=== PATIENT | male | born 1935 | race Caucasian/White ===

== ENCOUNTER 2018-03-29 14:48 | Observation (INO) | payer MEDICARE ==
[~2018-03-29] VITALS: Ht 180.3 cm; Wt 77.5 kg
[~2018-03-29 14:48] MED LIST: Aspirin EC81 MG PO; CLIN300 PO; Carbidopa-Levo1 EAC4 PO; LORA.5 PO; PRAM.5; PROACE100 PO; TAMS.4ER PO; TRAZ50 PO; [UNRECOGNIZED DRUG - OTHER]
[2018-03-29 15:27] LABS: BASOPHILS ABSOLUTE AUTO 0.07 K/mm3 (0.00-0.23); BASOPHILS PERCENT AUTO 1 % (0-2); EOSINOPHILS ABSOLUTE AUTO 0.21 K/mm3 (0.00-0.68); EOSINOPHILS PERCENT AUTO 4 % (0-6); Hematocrit 43.2 % (37.0-53.0); Hemoglobin 14.5 g/dL (13.5-17.5); IMMATURE GRAN ABSOLUTE AUTO 0.01 K/mm3 (0.00-0.10); IMMATURE GRAN PERCENT AUTO 0 % (0-1); LYMPHOCYTES PERCENT AUTO 21 % (21-46); MONOCYTES ABSOLUTE AUTO 0.46 K/mm3 (0.16-1.47); MONOCYTES PERCENT AUTO 8 % (4-13); Mean Corpuscular HGB 31.9 pg (26.0-34.0); Mean Corpuscular HGB Conc 33.6 g/dL (31.5-36.5); Mean Corpuscular Volume 95 fL (80-100); Mean Platelet Volume 9.5 fL (9.1-12.4); NEUTROPHILS ABSOLUTE AUTO 3.76 K/mm3 (1.96-9.15); NEUTROPHILS PERCENT AUTO 66 % (41-73); Platelet Count 182 K/mm3 (150-400); RDW Coefficient Variation 12.7 % (11.7-14.2); RDW Standard Deviation 44.3 fL (35.1-46.3); Red Blood Cell Count 4.54 M/mm3 (4.30-5.90); White Blood Cell Count 5.71 K/mm3 (4.00-11.30)
[2018-03-29 15:42] LABS: Alanine Aminotransfer (ALT/SGP 9 U/L (12-78); Albumin, Blood 3.5 g/dL (3.4-5.0); Albumin/Globulin Ratio 0.9 (0.8-1.8); Alk Phos 52 U/L (50-136); Anion Gap 6 mmol/L (6-16); Aspartate Aminotrans (AST/SGOT 18 U/L (12-37); Bilirubin, Total 0.6 mg/dL (0.1-1.0); Blood Urea Nitrogen 18 mg/dL (8-24); Bun/Creatinine Ratio 23.8 (12.0-20.0); CO2, Blood 25 mmol/L (21-32); Chloride, Blood 109 mmol/L (98-108); Creatinine, Blood 0.76 mg/dL (0.60-1.20); Globulin, Blood 3.7 g/dL (2.2-4.0); Glomerular Filtration Rate >60 (60-); Glucose, Blood 91 mg/dL (70-99); Potassium, Blood 4.3 mmol/L (3.5-5.5); Sodium, Blood 140 mmol/L (136-145); Total Protein, Blood 7.2 g/dL (6.4-8.2); Troponin I <0.015 ng/mL (0.000-0.040)
[2018-03-29 20:50] LABS: Source, Urine Clean Catch
[2018-03-29 20:53] LABS: Bilirubin, Urine Neg (Neg); Blood, Urine Neg (Neg); Glucose Qualitative, Urine Neg (Neg); Ketones, Urine Neg (Neg); Leukocyte Esterase, Urine Neg (Neg); Nitrite, Urine Neg (Neg); Protein, Urine Neg (Neg); Specific Gravity, Urine 1.015 (1.003-1.022); Urobilinogen, Urine NORM (Normal); pH, Urine 6.5 (5.0-8.0)
[2018-03-29 20:55] LABS: Color, Urine Yellow (P-Yellow)
[2018-03-29 20:56] LABS: Appearance, Urine Clear (Clear)
[2018-03-29] MEDS ORDERED: CARB100 (22:33)
[2018-03-29] MEDS ORDERED: Carbidopa-Levo1 EAC1 PO (22:34)
[2018-03-30 08:01] LABS: CHOL/HDL RATIO 2.3; Cholesterol 112 mg/dL (50-200); HDL Cholesterol 49 mg/dL (>39); Low Density Lipoprotein Chol 51 mg/dL (0-110); Triglycerides 61 mg/dL (30-160); Troponin I <0.015 ng/mL (0.000-0.040); Very Low Density Lipoprot Chol 12 mg/dL (6-32)
[2018-03-30] MEDS ORDERED: Vitamin B Comple1 EA PO (16:03)
[2018-03-30] MEDS ORDERED: CYAN100T2 PO (16:04)
[2018-03-30] MEDS ORDERED: VITAMIN C500 M1 PO (16:04)
[2018-03-30] MEDS ORDERED: ACET325 PO (16:05)
[2018-03-30] MEDS ORDERED: CHOL10002 PO (16:05)
[2018-03-30] MEDS ORDERED: BISA10S PR (16:05)
[2018-03-30] MEDS ORDERED: LOPE2C PO (16:06)
[2018-03-30] MEDS ORDERED: Milk Of Ma400 MG/5 M PO (16:06)
== END 2018-03-31 17:50 | disposition home or self-care (01) ==
LOC: ER 14:48 → PCU 14:49 → MEDS 03-30 13:28
PROVIDERS: Family Medicine; Hospitalist; Internal Medicine
DX: I20.0 Unstable angina (principal); R41.0 Disorientation, unspecified; G20 Parkinson's disease; N40.0 Benign prostatic hyperplasia without lower urinary tract symptoms; Z79.899 Other long term (current) drug therapy; Z79.82 Long term (current) use of aspirin; Z82.49 Family history of ischemic heart disease and other diseases of the circulatory system
CPT/HCPCS: 36415; 71046; 78452; 80053; 80061; 81003; 83880; 84484; 85025; 85379; 87493; 92610; 93005; 93010; 93017; 93306; 94762; 97161; 97530; 99285; A9500; G0378; G8978; G8979; G8980; G8996; G8997; G8998; J0280; J2785

== ENCOUNTER 2018-07-11 09:47 | Emergency (ER) | payer MEDICARE, OTHER ==
[~2018-07-11] VITALS: Ht 177.8 cm; Wt 79.4 kg
[~2018-07-11 09:47] MED LIST changes: +ACET325 PO; +BISA10S PR; +CARB100; +CHOL10002 PO; +CYAN100T2 PO; +Carbidopa-Levo1 EAC1 PO; +LOPE2C PO; +Milk Of Ma400 MG/5 M PO; +VITAMIN C500 M1 PO; +Vitamin B Comple1 EA PO
[2018-07-11 11:52] LABS: Source, Urine Clean Catch
[2018-07-11 12:04] LABS: Appearance, Urine Cloudy (Clear); Bilirubin, Urine Neg (Neg); Blood, Urine 2+ (Neg); Color, Urine Amber (P-Yellow); Glucose Qualitative, Urine Neg (Neg); Ketones, Urine 2+ (Neg); Leukocyte Esterase, Urine 3+ (Neg); Nitrite, Urine Pos (Neg); Protein, Urine 2+ (Neg); Urobilinogen, Urine 1+ (Normal)
[2018-07-11 12:24] LABS: White Blood Cells, Urine TNTC /hpf (0-5)
[2018-07-11 12:28] LABS: Bacteria Many /hpf; Squamous Epithelial Cells Rare /hpf (Few)
[2018-07-11] MEDS ORDERED: Bactrim Ds Tab1 EACH PO (12:57)
[2018-07-11] MEDS ORDERED: Norco 5-325 Ta1 EACH PO (12:57)
[2018-07-12] MEDS ORDERED: GAVILAX17 GM PO (19:00)
== END 2018-07-11 14:08 | disposition home or self-care (01) ==
LOC: ER 09:47
PROVIDERS: Emergency Medicine
DX: S32.512A Fracture of superior rim of left pubis, initial encounter for closed fracture (principal); S32.592A Other specified fracture of left pubis, initial encounter for closed fracture; S00.01XA Abrasion of scalp, initial encounter; N39.0 Urinary tract infection, site not specified; G20 Parkinson's disease; W18.30XA Fall on same level, unspecified, initial encounter; Z79.82 Long term (current) use of aspirin; Z79.899 Other long term (current) drug therapy
CPT/HCPCS: 70450; 73502; 81001; 87077; 87086; 87186; 99284-25

== ENCOUNTER 2018-07-12 17:45 | Inpatient (IN) | payer OTHER ==
[~2018-07-12] VITALS: Ht 182.9 cm; Wt 74.9 kg
[~2018-07-12 17:45] MED LIST changes: +Bactrim Ds Tab1 EACH PO; +Norco 5-325 Ta1 EACH PO
[2018-07-12] MEDS ORDERED: GAVILAX17 GM PO (19:00)
[2018-07-12 19:03] LABS: BASOPHILS ABSOLUTE AUTO 0.04 K/mm3 (0.00-0.23); BASOPHILS PERCENT AUTO 1 % (0-2); EOSINOPHILS ABSOLUTE AUTO 0.15 K/mm3 (0.00-0.68); EOSINOPHILS PERCENT AUTO 2 % (0-6); Hematocrit 40.5 % (37.0-53.0); Hemoglobin 13.7 g/dL (13.5-17.5); IMMATURE GRAN ABSOLUTE AUTO 0.03 K/mm3 (0.00-0.10); IMMATURE GRAN PERCENT AUTO 0 % (0-1); LYMPHOCYTES ABSOLUTE AUTO 0.81 K/mm3 (0.84-5.20); LYMPHOCYTES PERCENT AUTO 9 % (21-46); MONOCYTES ABSOLUTE AUTO 0.63 K/mm3 (0.16-1.47); MONOCYTES PERCENT AUTO 7 % (4-13); Mean Corpuscular HGB Conc 33.8 g/dL (31.5-36.5); Mean Corpuscular Volume 95 fL (80-100); Mean Platelet Volume 9.6 fL (9.1-12.4); NEUTROPHILS ABSOLUTE AUTO 6.96 K/mm3 (1.96-9.15); NEUTROPHILS PERCENT AUTO 81 % (41-73); Platelet Count 174 K/mm3 (150-400); RDW Coefficient Variation 13.2 % (11.7-14.2); RDW Standard Deviation 45.8 fL (35.1-46.3); Red Blood Cell Count 4.28 M/mm3 (4.30-5.90); White Blood Cell Count 8.62 K/mm3 (4.00-11.30)
[2018-07-12 19:28] LABS: Alanine Aminotransfer (ALT/SGP 7 U/L (12-78); Albumin, Blood 3.2 g/dL (3.4-5.0); Albumin/Globulin Ratio 0.8 (0.8-1.8); Alk Phos 49 U/L (50-136); Anion Gap 9 mmol/L (6-16); Aspartate Aminotrans (AST/SGOT 16 U/L (12-37); Bilirubin, Total 0.9 mg/dL (0.1-1.0); Blood Urea Nitrogen 14 mg/dL (8-24); Bun/Creatinine Ratio 14.7 (12.0-20.0); CO2, Blood 25 mmol/L (21-32); Calcium, Blood 9.1 mg/dL (8.5-10.1); Chloride, Blood 105 mmol/L (98-108); Creatinine, Blood 0.96 mg/dL (0.60-1.20); Globulin, Blood 3.9 g/dL (2.2-4.0); Glomerular Filtration Rate >60 (60-); Glucose, Blood 106 mg/dL (70-99); Sodium, Blood 139 mmol/L (136-145); Total Protein, Blood 7.1 g/dL (6.4-8.2)
[2018-07-13 04:16] LABS: BASOPHILS ABSOLUTE AUTO 0.03 K/mm3 (0.00-0.23); BASOPHILS PERCENT AUTO 0 % (0-2); EOSINOPHILS ABSOLUTE AUTO 0.13 K/mm3 (0.00-0.68); EOSINOPHILS PERCENT AUTO 2 % (0-6); Hematocrit 39.5 % (37.0-53.0); Hemoglobin 13.5 g/dL (13.5-17.5); IMMATURE GRAN ABSOLUTE AUTO 0.02 K/mm3 (0.00-0.10); IMMATURE GRAN PERCENT AUTO 0 % (0-1); LYMPHOCYTES ABSOLUTE AUTO 0.76 K/mm3 (0.84-5.20); LYMPHOCYTES PERCENT AUTO 10 % (21-46); MONOCYTES PERCENT AUTO 8 % (4-13); Mean Corpuscular HGB 32.1 pg (26.0-34.0); Mean Corpuscular HGB Conc 34.2 g/dL (31.5-36.5); Mean Corpuscular Volume 94 fL (80-100); Mean Platelet Volume 9.6 fL (9.1-12.4); NEUTROPHILS ABSOLUTE AUTO 6.17 K/mm3 (1.96-9.15); NEUTROPHILS PERCENT AUTO 80 % (41-73); Platelet Count 169 K/mm3 (150-400); RDW Coefficient Variation 13.2 % (11.7-14.2); RDW Standard Deviation 45.3 fL (35.1-46.3); White Blood Cell Count 7.71 K/mm3 (4.00-11.30)
[2018-07-13 04:35] LABS: Anion Gap 8 mmol/L (6-16); Blood Urea Nitrogen 15 mg/dL (8-24); Bun/Creatinine Ratio 14.2 (12.0-20.0); CO2, Blood 25 mmol/L (21-32); Calcium, Blood 8.7 mg/dL (8.5-10.1); Chloride, Blood 108 mmol/L (98-108); Creatinine, Blood 1.06 mg/dL (0.60-1.20); Glomerular Filtration Rate >60 (60-); Glucose, Blood 83 mg/dL (70-99); Potassium, Blood 4.3 mmol/L (3.5-5.5); Sodium, Blood 141 mmol/L (136-145)
[2018-07-18 06:05] LABS: BASOPHILS ABSOLUTE AUTO 0.06 K/mm3 (0.00-0.23); BASOPHILS PERCENT AUTO 1 % (0-2); EOSINOPHILS ABSOLUTE AUTO 0.45 K/mm3 (0.00-0.68); EOSINOPHILS PERCENT AUTO 8 % (0-6); Hematocrit 41.2 % (37.0-53.0); Hemoglobin 13.6 g/dL (13.5-17.5); IMMATURE GRAN ABSOLUTE AUTO 0.03 K/mm3 (0.00-0.10); IMMATURE GRAN PERCENT AUTO 1 % (0-1); LYMPHOCYTES ABSOLUTE AUTO 1.11 K/mm3 (0.84-5.20); LYMPHOCYTES PERCENT AUTO 19 % (21-46); MONOCYTES ABSOLUTE AUTO 0.43 K/mm3 (0.16-1.47); MONOCYTES PERCENT AUTO 7 % (4-13); Mean Corpuscular HGB 30.8 pg (26.0-34.0); Mean Corpuscular Volume 93 fL (80-100); Mean Platelet Volume 9.3 fL (9.1-12.4); NEUTROPHILS ABSOLUTE AUTO 3.88 K/mm3 (1.96-9.15); NEUTROPHILS PERCENT AUTO 65 % (41-73); Platelet Count 181 K/mm3 (150-400); RDW Coefficient Variation 13.1 % (11.7-14.2); RDW Standard Deviation 44.6 fL (35.1-46.3); Red Blood Cell Count 4.42 M/mm3 (4.30-5.90); White Blood Cell Count 5.96 K/mm3 (4.00-11.30)
[2018-07-18 06:26] LABS: Anion Gap 8 mmol/L (6-16); Blood Urea Nitrogen 22 mg/dL (8-24); Bun/Creatinine Ratio 26.5 (12.0-20.0); CO2, Blood 25 mmol/L (21-32); Calcium, Blood 8.7 mg/dL (8.5-10.1); Chloride, Blood 110 mmol/L (98-108); Creatinine, Blood 0.83 mg/dL (0.60-1.20); Glomerular Filtration Rate >60 (60-); Glucose, Blood 83 mg/dL (70-99); Potassium, Blood 3.9 mmol/L (3.5-5.5); Sodium, Blood 143 mmol/L (136-145)
[2018-07-18] MEDS ORDERED: PANT40 PO (14:22)
[2018-07-18] MEDS ORDERED: ONDA4ODT MM (14:23)
[2018-07-18] MEDS ORDERED: Augmentin 500-1 EACH PO (14:24)
[2018-07-18] MEDS ORDERED: GUAI600T33 PO (14:25)
== END 2018-07-18 16:46 | DRG 689 ==
LOC: ER 17:45 → MEDS 20:45
PROVIDERS: Emergency Medicine; Family Medicine; Nurse Practitioner Acute Care
DX: N39.0 Urinary tract infection, site not specified (principal); G92 Toxic encephalopathy; B96.20 Unspecified Escherichia coli [E. coli] as the cause of diseases classified elsewhere; S32.592A Other specified fracture of left pubis, initial encounter for closed fracture; N40.0 Benign prostatic hyperplasia without lower urinary tract symptoms; G20 Parkinson's disease; W19.XXXA Unspecified fall, initial encounter; R91.8 Other nonspecific abnormal finding of lung field; Z79.899 Other long term (current) drug therapy; Z79.82 Long term (current) use of aspirin
CPT/HCPCS: 36415; 70450; 71046; 73502; 80048; 80053; 81001; 85025; 87077; 87086; 87186; 92610; 97110; 97116; 97161; 97166; 97530; 97535; 99284-25; 99285; G8978; G8979; G8980; G8987; G8988; G8996; G8997; G8998; J0696; J1650; J1885; J7030

== ENCOUNTER → 2018-09-05 | Outpatient (CLI) | payer OTHER ==
[~2018-09-05] MED LIST changes: +Augmentin 500-1 EACH PO; +GAVILAX17 GM PO; +GUAI600T33 PO; +ONDA4ODT MM; +PANT40 PO
[2018-09-05 15:16] LABS: Appearance, Urine Clear (Clear); Bilirubin, Urine Neg (Neg); Blood, Urine Neg (Neg); Color, Urine Yellow (P-Yellow); Glucose Qualitative, Urine Neg (Neg); Ketones, Urine 1+ (Neg); Leukocyte Esterase, Urine Neg (Neg); Nitrite, Urine Neg (Neg); Protein, Urine Neg (Neg); Specific Gravity, Urine 1.015 (1.003-1.022); Urobilinogen, Urine NORM (Normal)
== END | disposition home or self-care (01) ==
LOC: LAB 14:47 → LAB SHORT 14:47
DX: N39.0 Urinary tract infection, site not specified (principal)
CPT/HCPCS: 81003

== ENCOUNTER 2018-10-16 09:35 | Inpatient (IN) | payer OTHER ==
[~2018-10-16] VITALS: Ht 177.8 cm; Wt 81.6 kg
[~2018-10-16 09:35] MED LIST changes: -CARBIDOPA-LEVO1 EAC2 PO; -CIPR250 PO; -ESCI10 PO; -HYDR1TAB94 PO; -PANT20 PO
[2018-10-16 15:45] LABS: BASOPHILS ABSOLUTE AUTO 0.05 K/mm3 (0.00-0.23); BASOPHILS PERCENT AUTO 1 % (0-2); EOSINOPHILS ABSOLUTE AUTO 0.02 K/mm3 (0.00-0.68); EOSINOPHILS PERCENT AUTO 0 % (0-6); Hematocrit 41.6 % (37.0-53.0); Hemoglobin 13.9 g/dL (13.5-17.5); IMMATURE GRAN ABSOLUTE AUTO 0.02 K/mm3 (0.00-0.10); IMMATURE GRAN PERCENT AUTO 0 % (0-1); LYMPHOCYTES ABSOLUTE AUTO 0.58 K/mm3 (0.84-5.20); LYMPHOCYTES PERCENT AUTO 8 % (21-46); MONOCYTES ABSOLUTE AUTO 0.38 K/mm3 (0.16-1.47); MONOCYTES PERCENT AUTO 5 % (4-13); Mean Corpuscular HGB 31.7 pg (26.0-34.0); Mean Corpuscular HGB Conc 33.4 g/dL (31.5-36.5); Mean Corpuscular Volume 95 fL (80-100); Mean Platelet Volume 9.6 fL (9.1-12.4); NEUTROPHILS ABSOLUTE AUTO 5.93 K/mm3 (1.96-9.15); NEUTROPHILS PERCENT AUTO 85 % (41-73); Platelet Count 189 K/mm3 (150-400); RDW Standard Deviation 44.7 fL (35.1-46.3); Red Blood Cell Count 4.39 M/mm3 (4.30-5.90); White Blood Cell Count 6.98 K/mm3 (4.00-11.30)
[2018-10-16 15:59] LABS: Alanine Aminotransfer (ALT/SGP 10 U/L (12-78); Albumin, Blood 3.3 g/dL (3.4-5.0); Albumin/Globulin Ratio 0.9 (0.8-1.8); Alk Phos 72 U/L (50-136); Anion Gap 9 mmol/L (6-16); Aspartate Aminotrans (AST/SGOT 27 U/L (12-37); Bilirubin, Total 0.8 mg/dL (0.1-1.0); Blood Urea Nitrogen 15 mg/dL (8-24); Bun/Creatinine Ratio 20.2 (12.0-20.0); CO2, Blood 25 mmol/L (21-32); Calcium, Blood 8.8 mg/dL (8.5-10.1); Chloride, Blood 107 mmol/L (98-108); Creatinine, Blood 0.74 mg/dL (0.60-1.20); Globulin, Blood 3.5 g/dL (2.2-4.0); Glomerular Filtration Rate >60 (60-); Glucose, Blood 94 mg/dL (70-99); Sodium, Blood 141 mmol/L (136-145); Total Protein, Blood 6.8 g/dL (6.4-8.2)
[2018-10-16] MEDS ORDERED: CIPR250 PO (16:32)
[2018-10-17 05:58] LABS: BASOPHILS ABSOLUTE AUTO 0.06 K/mm3 (0.00-0.23); BASOPHILS PERCENT AUTO 1 % (0-2); EOSINOPHILS ABSOLUTE AUTO 0.17 K/mm3 (0.00-0.68); EOSINOPHILS PERCENT AUTO 3 % (0-6); Hematocrit 38.4 % (37.0-53.0); Hemoglobin 12.7 g/dL (13.5-17.5); IMMATURE GRAN ABSOLUTE AUTO 0.01 K/mm3 (0.00-0.10); IMMATURE GRAN PERCENT AUTO 0 % (0-1); LYMPHOCYTES ABSOLUTE AUTO 0.85 K/mm3 (0.84-5.20); LYMPHOCYTES PERCENT AUTO 16 % (21-46); MONOCYTES ABSOLUTE AUTO 0.53 K/mm3 (0.16-1.47); MONOCYTES PERCENT AUTO 10 % (4-13); Mean Corpuscular HGB 31.2 pg (26.0-34.0); Mean Corpuscular HGB Conc 33.1 g/dL (31.5-36.5); Mean Corpuscular Volume 94 fL (80-100); Mean Platelet Volume 9.1 fL (9.1-12.4); NEUTROPHILS ABSOLUTE AUTO 3.72 K/mm3 (1.96-9.15); NEUTROPHILS PERCENT AUTO 70 % (41-73); Platelet Count 155 K/mm3 (150-400); RDW Coefficient Variation 13.1 % (11.7-14.2); RDW Standard Deviation 45.2 fL (35.1-46.3); Red Blood Cell Count 4.07 M/mm3 (4.30-5.90); White Blood Cell Count 5.34 K/mm3 (4.00-11.30)
[2018-10-17 06:23] LABS: Alanine Aminotransfer (ALT/SGP 10 U/L (12-78); Albumin/Globulin Ratio 0.9 (0.8-1.8); Alk Phos 66 U/L (50-136); Anion Gap 8 mmol/L (6-16); Aspartate Aminotrans (AST/SGOT 20 U/L (12-37); Bilirubin, Total 1.3 mg/dL (0.1-1.0); Blood Urea Nitrogen 15 mg/dL (8-24); Bun/Creatinine Ratio 18.1 (12.0-20.0); CO2, Blood 25 mmol/L (21-32); Calcium, Blood 8.5 mg/dL (8.5-10.1); Chloride, Blood 109 mmol/L (98-108); Creatinine, Blood 0.83 mg/dL (0.60-1.20); Globulin, Blood 3.2 g/dL (2.2-4.0); Glomerular Filtration Rate >60 (60-); Glucose, Blood 81 mg/dL (70-99); Magnesium, Blood 2.2 mg/dL (1.6-2.4); Potassium, Blood 3.7 mmol/L (3.5-5.5); Sodium, Blood 142 mmol/L (136-145); Total Protein, Blood 6.2 g/dL (6.4-8.2)
[2018-10-18 05:50] LABS: BASOPHILS ABSOLUTE AUTO 0.04 K/mm3 (0.00-0.23); BASOPHILS PERCENT AUTO 0 % (0-2); EOSINOPHILS ABSOLUTE AUTO 0.01 K/mm3 (0.00-0.68); EOSINOPHILS PERCENT AUTO 0 % (0-6); Hemoglobin 12.4 g/dL (13.5-17.5); IMMATURE GRAN ABSOLUTE AUTO 0.02 K/mm3 (0.00-0.10); IMMATURE GRAN PERCENT AUTO 0 % (0-1); LYMPHOCYTES ABSOLUTE AUTO 0.51 K/mm3 (0.84-5.20); LYMPHOCYTES PERCENT AUTO 5 % (21-46); MONOCYTES ABSOLUTE AUTO 0.54 K/mm3 (0.16-1.47); MONOCYTES PERCENT AUTO 5 % (4-13); Mean Corpuscular HGB 31.6 pg (26.0-34.0); Mean Corpuscular HGB Conc 33.5 g/dL (31.5-36.5); Mean Corpuscular Volume 94 fL (80-100); Mean Platelet Volume 9.7 fL (9.1-12.4); NEUTROPHILS ABSOLUTE AUTO 8.84 K/mm3 (1.96-9.15); NEUTROPHILS PERCENT AUTO 89 % (41-73); Platelet Count 154 K/mm3 (150-400); RDW Standard Deviation 44.7 fL (35.1-46.3); Red Blood Cell Count 3.92 M/mm3 (4.30-5.90); White Blood Cell Count 9.96 K/mm3 (4.00-11.30)
[2018-10-18 06:21] LABS: Alanine Aminotransfer (ALT/SGP <6 U/L (12-78); Albumin, Blood 2.5 g/dL (3.4-5.0); Albumin/Globulin Ratio 0.9 (0.8-1.8); Alk Phos 57 U/L (50-136); Anion Gap 7 mmol/L (6-16); Aspartate Aminotrans (AST/SGOT 22 U/L (12-37); Blood Urea Nitrogen 13 mg/dL (8-24); Bun/Creatinine Ratio 16.6 (12.0-20.0); CO2, Blood 26 mmol/L (21-32); Calcium, Blood 8.1 mg/dL (8.5-10.1); Chloride, Blood 107 mmol/L (98-108); Creatinine, Blood 0.78 mg/dL (0.60-1.20); Globulin, Blood 2.9 g/dL (2.2-4.0); Glomerular Filtration Rate >60 (60-); Glucose, Blood 92 mg/dL (70-99); Potassium, Blood 3.9 mmol/L (3.5-5.5); Sodium, Blood 140 mmol/L (136-145); Total Protein, Blood 5.4 g/dL (6.4-8.2)
[2018-10-18] MEDS ORDERED: CARBIDOPA-LEVO1 EAC2 PO (18:03)
[2018-10-19 05:59] LABS: BASOPHILS ABSOLUTE AUTO 0.04 K/mm3 (0.00-0.23); BASOPHILS PERCENT AUTO 1 % (0-2); EOSINOPHILS ABSOLUTE AUTO 0.16 K/mm3 (0.00-0.68); EOSINOPHILS PERCENT AUTO 2 % (0-6); Hematocrit 37.4 % (37.0-53.0); Hemoglobin 12.2 g/dL (13.5-17.5); IMMATURE GRAN ABSOLUTE AUTO 0.01 K/mm3 (0.00-0.10); IMMATURE GRAN PERCENT AUTO 0 % (0-1); LYMPHOCYTES ABSOLUTE AUTO 0.62 K/mm3 (0.84-5.20); LYMPHOCYTES PERCENT AUTO 9 % (21-46); MONOCYTES ABSOLUTE AUTO 0.56 K/mm3 (0.16-1.47); MONOCYTES PERCENT AUTO 8 % (4-13); Mean Corpuscular HGB 31.2 pg (26.0-34.0); Mean Corpuscular HGB Conc 32.6 g/dL (31.5-36.5); Mean Corpuscular Volume 96 fL (80-100); Mean Platelet Volume 9.9 fL (9.1-12.4); NEUTROPHILS ABSOLUTE AUTO 5.46 K/mm3 (1.96-9.15); NEUTROPHILS PERCENT AUTO 80 % (41-73); Platelet Count 145 K/mm3 (150-400); RDW Coefficient Variation 13.1 % (11.7-14.2); RDW Standard Deviation 46.3 fL (35.1-46.3); Red Blood Cell Count 3.91 M/mm3 (4.30-5.90); White Blood Cell Count 6.85 K/mm3 (4.00-11.30)
[2018-10-19 06:16] LABS: Alanine Aminotransfer (ALT/SGP 9 U/L (12-78); Albumin, Blood 2.3 g/dL (3.4-5.0); Albumin/Globulin Ratio 0.7 (0.8-1.8); Alk Phos 54 U/L (50-136); Anion Gap 8 mmol/L (6-16); Aspartate Aminotrans (AST/SGOT 24 U/L (12-37); Bilirubin, Total 0.9 mg/dL (0.1-1.0); Blood Urea Nitrogen 12 mg/dL (8-24); Bun/Creatinine Ratio 14.9 (12.0-20.0); CO2, Blood 26 mmol/L (21-32); Calcium, Blood 8.2 mg/dL (8.5-10.1); Chloride, Blood 109 mmol/L (98-108); Creatinine, Blood 0.81 mg/dL (0.60-1.20); Globulin, Blood 3.1 g/dL (2.2-4.0); Glomerular Filtration Rate >60 (60-); Glucose, Blood 67 mg/dL (70-99); Potassium, Blood 3.4 mmol/L (3.5-5.5); Sodium, Blood 143 mmol/L (136-145); Total Protein, Blood 5.4 g/dL (6.4-8.2)
[2018-10-20 04:34] LABS: Anion Gap 7 mmol/L (6-16); Blood Urea Nitrogen 10 mg/dL (8-24); Bun/Creatinine Ratio 14.7 (12.0-20.0); CO2, Blood 28 mmol/L (21-32); Calcium, Blood 8.2 mg/dL (8.5-10.1); Chloride, Blood 108 mmol/L (98-108); Creatinine, Blood 0.68 mg/dL (0.60-1.20); Glomerular Filtration Rate >60 (60-); Glucose, Blood 107 mg/dL (70-99); Potassium, Blood 3.4 mmol/L (3.5-5.5); Sodium, Blood 143 mmol/L (136-145)
[2018-10-22 07:18] LABS: Hematocrit 39.9 % (37.0-53.0); Hemoglobin 13.3 g/dL (13.5-17.5); Mean Corpuscular HGB 31.1 pg (26.0-34.0); Mean Corpuscular HGB Conc 33.3 g/dL (31.5-36.5); Mean Platelet Volume 9.7 fL (9.1-12.4); Platelet Count 194 K/mm3 (150-400); RDW Coefficient Variation 12.4 % (11.7-14.2); RDW Standard Deviation 42.3 fL (35.1-46.3); Red Blood Cell Count 4.27 M/mm3 (4.30-5.90); White Blood Cell Count 5.26 K/mm3 (4.00-11.30)
[2018-10-22 07:30] LABS: Anion Gap 8 mmol/L (6-16); Blood Urea Nitrogen 13 mg/dL (8-24); Bun/Creatinine Ratio 18.8 (12.0-20.0); CO2, Blood 25 mmol/L (21-32); Calcium, Blood 8.9 mg/dL (8.5-10.1); Chloride, Blood 111 mmol/L (98-108); Creatinine, Blood 0.69 mg/dL (0.60-1.20); Glomerular Filtration Rate >60 (60-); Glucose, Blood 104 mg/dL (70-99); Magnesium, Blood 2.2 mg/dL (1.6-2.4); Phosphorus, Blood 2.8 mg/dL (2.5-4.9); Potassium, Blood 3.8 mmol/L (3.5-5.5); Sodium, Blood 144 mmol/L (136-145)
[2018-10-22 07:37] LABS: Mean Corpuscular Volume 93 fL (80-100)
[2018-10-26 08:28] LABS: Anion Gap 8 mmol/L (6-16); Blood Urea Nitrogen 25 mg/dL (8-24); Bun/Creatinine Ratio 31.2 (12.0-20.0); CO2, Blood 25 mmol/L (21-32); Chloride, Blood 109 mmol/L (98-108); Glomerular Filtration Rate >60 (60-); Glucose, Blood 89 mg/dL (70-99); Potassium, Blood 4.1 mmol/L (3.5-5.5); Sodium, Blood 142 mmol/L (136-145)
[2018-10-27] MEDS ORDERED: PANT20 PO (20:53)
[2018-10-27] MEDS ORDERED: ESCI10 PO (20:53)
[2018-10-27] MEDS ORDERED: HYDR1TAB94 PO (20:55)
[2018-10-27] MEDS ORDERED: TRAZ50 PO (20:56)
== END 2018-10-26 12:41 | disposition home health service (06) | DRG 330 ==
LOC: ER 09:35 → SURS 17:13
PROVIDERS: Family Medicine; Internal Medicine; Physician Assistant; Surgery
PROC: 0DJD8ZZ Inspection of Lower Intestinal Tract, Via Natural or Artificial Opening Endoscopic (ICD-10-PCS; 2018-10-16)
PROC: 0DTN0ZZ Resection of Sigmoid Colon, Open Approach (ICD-10-PCS; principal; 2018-10-17 17:00)
PROC: 0D1M0Z4 Bypass Descending Colon to Cutaneous, Open Approach (ICD-10-PCS; 2018-10-17 17:00)
DX: K56.2 Volvulus (principal); N39.0 Urinary tract infection, site not specified; F02.81 Dementia in other diseases classified elsewhere, unspecified severity, with behavioral disturbance; G20 Parkinson's disease; Z78.1 Physical restraint status; B96.4 Proteus (mirabilis) (morganii) as the cause of diseases classified elsewhere; K59.09 Other constipation; N40.0 Benign prostatic hyperplasia without lower urinary tract symptoms; G47.33 Obstructive sleep apnea (adult) (pediatric); K21.9 Gastro-esophageal reflux disease without esophagitis; Z79.82 Long term (current) use of aspirin; Z79.899 Other long term (current) drug therapy
CPT/HCPCS: 36415; 74022; 74177; 80048; 80053; 82947; 83605; 83735; 84100; 84443; 85025; 85027; 88307; 92610; 93005; 93010; 94762; 96361; 96374; 96376; 97110; 97162; 97166; 97530; 99285-25; C9113; G8978; G8979; G8987; G8988; G8996; G8997; G8998; J0295; J0330; J1170; J1650; J1885; J2060; J2270; J2765; J3010; J7070; J7120; Q9967

== ENCOUNTER → 2018-10-16 | Outpatient (CLI) | payer OTHER ==
[~2018-10-16] MED LIST changes: +CARBIDOPA-LEVO1 EAC2 PO; +CIPR250 PO; +ESCI10 PO; +HYDR1TAB94 PO; +PANT20 PO
[2018-10-16 08:45] LABS: BASOPHILS ABSOLUTE AUTO 0.07 K/mm3 (0.00-0.23); BASOPHILS PERCENT AUTO 1 % (0-2); EOSINOPHILS ABSOLUTE AUTO 0.16 K/mm3 (0.00-0.68); EOSINOPHILS PERCENT AUTO 3 % (0-6); Hematocrit 43.1 % (37.0-53.0); Hemoglobin 14.7 g/dL (13.5-17.5); IMMATURE GRAN ABSOLUTE AUTO 0.02 K/mm3 (0.00-0.10); IMMATURE GRAN PERCENT AUTO 0 % (0-1); LYMPHOCYTES ABSOLUTE AUTO 0.67 K/mm3 (0.84-5.20); LYMPHOCYTES PERCENT AUTO 13 % (21-46); MONOCYTES ABSOLUTE AUTO 0.36 K/mm3 (0.16-1.47); MONOCYTES PERCENT AUTO 7 % (4-13); Mean Corpuscular HGB 31.9 pg (26.0-34.0); Mean Corpuscular HGB Conc 34.1 g/dL (31.5-36.5); Mean Corpuscular Volume 94 fL (80-100); Mean Platelet Volume 9.3 fL (9.1-12.4); NEUTROPHILS ABSOLUTE AUTO 3.86 K/mm3 (1.96-9.15); NEUTROPHILS PERCENT AUTO 75 % (41-73); Platelet Count 190 K/mm3 (150-400); RDW Coefficient Variation 13.1 % (11.7-14.2); RDW Standard Deviation 44.6 fL (35.1-46.3); Red Blood Cell Count 4.61 M/mm3 (4.30-5.90); White Blood Cell Count 5.14 K/mm3 (4.00-11.30)
[2018-10-16 09:04] LABS: Alanine Aminotransfer (ALT/SGP 12 U/L (12-78); Albumin, Blood 3.8 g/dL (3.4-5.0); Alk Phos 79 U/L (40-126); Anion Gap 12 mmol/L (6-16); Aspartate Aminotrans (AST/SGOT 26 U/L (12-37); Bilirubin, Total 1.1 mg/dL (0.1-1.0); Blood Urea Nitrogen 16 mg/dL (8-24); CO2, Blood 24 mmol/L (21-32); Calcium, Blood 9.2 mg/dL (8.5-10.1); Chloride, Blood 104 mmol/L (98-108); Globulin, Blood 3.8 g/dL (2.2-4.0); Glomerular Filtration Rate >60 (60-); Glucose, Blood 106 mg/dL (70-99); Potassium, Blood 3.7 mmol/L (3.5-5.5); Sodium, Blood 140 mmol/L (136-145); Total Protein, Blood 7.6 g/dL (6.4-8.2)
== END | disposition home or self-care (01) ==
LOC: LAB SHORT 08:42 → LAB EV 08:42
PROVIDERS: Physician Assistant Medical
DX: R10.84 Generalized abdominal pain (principal)
CPT/HCPCS: 80053; 85025

== ENCOUNTER 2018-10-27 20:06 | Inpatient (IN) | payer OTHER ==
[~2018-10-27] VITALS: Ht 177.8 cm; Wt 80.3 kg
[~2018-10-27 20:06] MED LIST changes: +CARBIDOPA-LEVO1 EAC2 PO; +CIPR250 PO
[2018-10-27] MEDS ORDERED: PANT20 PO (20:53)
[2018-10-27] MEDS ORDERED: ESCI10 PO (20:53)
[2018-10-27] MEDS ORDERED: HYDR1TAB94 PO (20:55)
[2018-10-27] MEDS ORDERED: TRAZ50 PO (20:56)
[2018-10-27 22:12] LABS: Source, Urine Clean Catch
[2018-10-27 22:15] LABS: BASOPHILS ABSOLUTE AUTO 0.05 K/mm3 (0.00-0.23); BASOPHILS PERCENT AUTO 1 % (0-2); EOSINOPHILS ABSOLUTE AUTO 0.21 K/mm3 (0.00-0.68); EOSINOPHILS PERCENT AUTO 3 % (0-6); Hematocrit 43.5 % (37.0-53.0); Hemoglobin 14.7 g/dL (13.5-17.5); IMMATURE GRAN ABSOLUTE AUTO 0.03 K/mm3 (0.00-0.10); IMMATURE GRAN PERCENT AUTO 0 % (0-1); LYMPHOCYTES ABSOLUTE AUTO 0.61 K/mm3 (0.84-5.20); LYMPHOCYTES PERCENT AUTO 9 % (21-46); MONOCYTES ABSOLUTE AUTO 0.59 K/mm3 (0.16-1.47); MONOCYTES PERCENT AUTO 8 % (4-13); Mean Corpuscular HGB 31.9 pg (26.0-34.0); Mean Corpuscular HGB Conc 33.8 g/dL (31.5-36.5); Mean Corpuscular Volume 94 fL (80-100); Mean Platelet Volume 9.7 fL (9.1-12.4); NEUTROPHILS ABSOLUTE AUTO 5.61 K/mm3 (1.96-9.15); NEUTROPHILS PERCENT AUTO 79 % (41-73); Platelet Count 260 K/mm3 (150-400); RDW Coefficient Variation 12.5 % (11.7-14.2); RDW Standard Deviation 43.6 fL (35.1-46.3); Red Blood Cell Count 4.61 M/mm3 (4.30-5.90)
[2018-10-27 22:16] LABS: Bilirubin, Urine Neg (Neg); Blood, Urine 1+ (Neg); Glucose Qualitative, Urine Neg (Neg); Ketones, Urine 1+ (Neg); Leukocyte Esterase, Urine 1+ (Neg); Nitrite, Urine Neg (Neg); Protein, Urine 1+ (Neg); Urobilinogen, Urine 1+ (Normal)
[2018-10-27 22:22] LABS: Appearance, Urine Clear (Clear); Color, Urine Orange (P-Yellow)
[2018-10-27 22:24] LABS: Bacteria Mod /hpf; Hyaline Casts 0-2 /lpf (0-2); Mucus Light (0-Heavy); Red Blood Cells, Urine 0-2 /hpf (0-2); Squamous Epithelial Cells Few /hpf (Few)
[2018-10-27 22:35] LABS: Alanine Aminotransfer (ALT/SGP 22 U/L (12-78); Albumin, Blood 3.2 g/dL (3.4-5.0); Albumin/Globulin Ratio 0.8 (0.8-1.8); Alk Phos 65 U/L (50-136); Anion Gap 7 mmol/L (6-16); Aspartate Aminotrans (AST/SGOT 30 U/L (12-37); Bilirubin, Total 0.5 mg/dL (0.1-1.0); Blood Urea Nitrogen 20 mg/dL (8-24); Bun/Creatinine Ratio 25.3 (12.0-20.0); CO2, Blood 26 mmol/L (21-32); Chloride, Blood 108 mmol/L (98-108); Creatinine, Blood 0.79 mg/dL (0.60-1.20); Globulin, Blood 3.8 g/dL (2.2-4.0); Glomerular Filtration Rate >60 (60-); Glucose, Blood 136 mg/dL (70-99); Potassium, Blood 4.1 mmol/L (3.5-5.5); Sodium, Blood 141 mmol/L (136-145)
--- NOTE | 2018-10-28 03:20 | NUR ---
INABILITY TO SWALLOW PILLS PT IS UNABLE TO SWALLOW PILLS D/T COGNITIVE IMPAIRMENT AND INABILITY TO FOLLOW COMMANDS. THEREFORE, PT HAS NOT BEEN TAKING CARBIDOPA/LEVADOPA X2 DAYS. DAUGHTER REPORTS SIGNIFICANT WORSENING IN TREMORS AND UNCONTROLLED MUSCLE JERKING/MOVEMENTS. DAUGHTER SUGGESTS RECIEVING MED IN ANOTHER FORM. HOWEVER, ACCORIDNG TO DOC, THERE IS NO OTHER FORM AVAILABLE BESIDES PO.
--- NOTE | 2018-10-28 07:37 | NUR ---
SHIFT SUMMARY: PT ALERT TO AND DAUGHTER ONLY. TREMORS AND JERKING MOVEMENTS NOTED IN BUE. AND DAUGHTER STATES PT'S TREMORS ARE WROSE THAN NORMAL. PT UNABLE TO ANSWER QUESTIONS, FOLLOWS SOME COMMANDS. SEVERE PAIN IN R HIP BASED ON FACIAL GRIMACES. RECIEVING FENTANYL 25 MCG Q4H AND ATIVAN 0.25 MG Q2H. RESPONDS WELL TO BOTH. COLOSTOMY IN L ABDOMEN DRAINING LOOSE BROWN STOOL. RODRIGUEZ CATH OATENT + FLOWING. WILL CONT TO [facility] AND PROVIDE CARE UNTIL RPESUMED BY ERIC VALLE.
--- NOTE | 2018-10-28 12:53 | NUR ---
PT TO OR VIA BED. PAS, BP CUFF, AND SURGICAL HAT PLACED. PT RESTING QUIETLY. NO ACUTE CHANGES AT THIS TIME.
--- NOTE | 2018-10-28 13:44 | NUR ---
10/28/18 1344 Terrence León PT HAS A RODRIGUEZ CATH IN PLACE PRIOR TO ARRIVAL TO OR.
--- NOTE | 2018-10-28 16:05 | NUR ---
pt transferred back to room via own bed following surgical R amber hip repair. post op vs commenced and stable, family in room with pt.
--- NOTE | 2018-10-28 17:08 | NUR ---
shift summary: pt received R amber hip replacement by Dr Ortega this shift, afternoon, returned to room approximately 1600 transferred on own bed. post op VS stable and continuining currently. pt on NC 2l, saturation at 97%. pt appears to have no pain at this time, sleeping soundly. recieved 2nd TXS at 1615. pt with good pulses and capillary refill in operative leg, warm to touch. pt received pain control and anxiiolytics per MAR with good control of Parkinsonian symptoms and agitation. Sublingual Carpidopa per MAR once pt is no longer an aspiration risk following general anesthesia. pt's family has been present this entire shift, assists with care and planning for pt.
[2018-10-29 05:17] LABS: BASOPHILS ABSOLUTE AUTO 0.04 K/mm3 (0.00-0.23); BASOPHILS PERCENT AUTO 0 % (0-2); EOSINOPHILS PERCENT AUTO 1 % (0-6); Hematocrit 41.9 % (37.0-53.0); Hemoglobin 13.9 g/dL (13.5-17.5); IMMATURE GRAN ABSOLUTE AUTO 0.05 K/mm3 (0.00-0.10); IMMATURE GRAN PERCENT AUTO 0 % (0-1); LYMPHOCYTES ABSOLUTE AUTO 0.87 K/mm3 (0.84-5.20); LYMPHOCYTES PERCENT AUTO 7 % (21-46); MONOCYTES ABSOLUTE AUTO 1.03 K/mm3 (0.16-1.47); MONOCYTES PERCENT AUTO 9 % (4-13); Mean Corpuscular HGB 31.2 pg (26.0-34.0); Mean Corpuscular HGB Conc 33.2 g/dL (31.5-36.5); Mean Corpuscular Volume 94 fL (80-100); Mean Platelet Volume 10.4 fL (9.1-12.4); NEUTROPHILS ABSOLUTE AUTO 9.65 K/mm3 (1.96-9.15); NEUTROPHILS PERCENT AUTO 82 % (41-73); Platelet Count 229 K/mm3 (150-400); RDW Coefficient Variation 12.7 % (11.7-14.2); RDW Standard Deviation 43.7 fL (35.1-46.3); Red Blood Cell Count 4.46 M/mm3 (4.30-5.90); White Blood Cell Count 11.74 K/mm3 (4.00-11.30)
--- NOTE | 2018-10-29 06:23 | NUR ---
POD 1 S/P R HIP REPAIR. PT VSS T/O NIGHT, 2LO2 NC IN PLACE, SATS >90%. PT HR IS NOTED TO INC WHEN PT APPEARS PAINFUL. DRESSING WNL. PT MOSTLY DROWSY T/O NIGHT, DOES BECOME AGITATED AND TENSED W/PAIN. PAIN AND AGITATION MGD PER EMAR R/T FLACC SCALE AND FAMILY REQ APPX Q2 T/O NIGHT. PO INTAKE VERY MINIMAL, PT OFFERED PO FLUIDS W/ROUNDING. PT REPOSITIONED AND ORAL CARE PROVIDED Q2 T/O NIGHT. IVF CONT PER ORDERS, JENNIFER DRNG DARK YELLOW URINE. DAUGHTER AND ALT AT BEDSIDE DURING NIGHT, ASSISTING W/CARE. BED ALARM ON FOR SAFETY. WILL CONT TO MONITOR UNTIL REP GIVEN TO ONCOMING RN.
--- NOTE | 2018-10-29 11:41 | NUR ---
DISCUSSED LIMITED CODE STATUS WITH DR. POWELL. SHE REPORTED SHE WOULD DISCUSS THIS WITH THE PATIENTS FAMILY TO DETERMINE THE PATIENTS WISHES.
--- NOTE | 2018-10-29 11:42 | NUR ---
PAIN MANAGEMENT DISCUSSED DECREASING USE OF FENTANYL AND ATIVAN IN ORDER TO GET PATIENT MORE ALERT FOR THERAPY. REQUESTED TORADOL AND TYLENOL TO BE ORDERED. AWAITING ORDERS FROM DR. POWELL. WILL CONTINUE TO MONITOR.
--- NOTE | 2018-10-29 13:30 | NUR ---
IV REMOVED FIELD START IV REMOVED FROM L AC. IV APPEARED TO BE LEAKING, DID NOT APPEAR INFILTRATED. 18G IV IN PLACE TO LFA, PRESENT UPON AM ASSESSMENT.
--- NOTE | 2018-10-29 18:42 | NUR ---
SHIFT SUMMARY PT HAS BEEN PAINFUL WITH REPOSITIONING AND REQUIRES PAIN MEDICATION AFTER MOVEMENT. PT HAS BEEN ABLE TO DECREASE ATIVAN AND FENTANYL USE THIS SHIFT. FAMILY HAS BEEN AT THE BEDSIDE. VSS. WILL MONITOR UNTIL REPORT TO ONCOMING RN.
--- NOTE | 2018-10-29 21:54 | NUR ---
PT HAS REMAINED RESTLESS AND AGITATED DESPITE PAIN MEDS. PRN ORDERS DISCUSSED THOROUGHLY W/BOTH DAUGHTERS, , SON IN LAW AND GRANDSON. BALANCING PT PAIN, AGITATION, WHILE MAINTAINING RESP STATUS DISCUSSED AT LENGTH. PT MEDICATED FOR PAIN, REPOSITIONED, PT REMAINS RESTLESS AND SOMEWHAT AGITATED. CALL PLACED TO DR JOHNSON PER FAMILY REQ. PT HX, STATUS AND MED ORDERS REVIEWED W/MD. NEW ATIVAN ORDERS REC. SON IN LAW IN ROOM UPDATED. PLAN TO MED PER ORDERS.
[2018-10-30 04:39] LABS: BASOPHILS ABSOLUTE AUTO 0.04 K/mm3 (0.00-0.23); BASOPHILS PERCENT AUTO 0 % (0-2); EOSINOPHILS ABSOLUTE AUTO 0.32 K/mm3 (0.00-0.68); EOSINOPHILS PERCENT AUTO 4 % (0-6); Hematocrit 37.7 % (37.0-53.0); Hemoglobin 12.7 g/dL (13.5-17.5); IMMATURE GRAN ABSOLUTE AUTO 0.03 K/mm3 (0.00-0.10); IMMATURE GRAN PERCENT AUTO 0 % (0-1); LYMPHOCYTES ABSOLUTE AUTO 0.76 K/mm3 (0.84-5.20); LYMPHOCYTES PERCENT AUTO 8 % (21-46); MONOCYTES ABSOLUTE AUTO 0.76 K/mm3 (0.16-1.47); MONOCYTES PERCENT AUTO 8 % (4-13); Mean Corpuscular HGB 31.7 pg (26.0-34.0); Mean Corpuscular HGB Conc 33.7 g/dL (31.5-36.5); Mean Corpuscular Volume 94 fL (80-100); NEUTROPHILS ABSOLUTE AUTO 7.33 K/mm3 (1.96-9.15); NEUTROPHILS PERCENT AUTO 79 % (41-73); Platelet Count 200 K/mm3 (150-400); RDW Coefficient Variation 12.3 % (11.7-14.2); RDW Standard Deviation 42.7 fL (35.1-46.3); Red Blood Cell Count 4.01 M/mm3 (4.30-5.90); White Blood Cell Count 9.24 K/mm3 (4.00-11.30)
--- NOTE | 2018-10-30 04:42 | NUR ---
POD 2 S/P R HIP REPAIR. PT VSS T/O NIGHT. 2LO2 NC PLACED PRN T/O NIGHT, PT MAINTAIN SATS >90%. DRESSING CDI. PT MEDICATED FOR PAIN AND AGITATION PER EMAR W/FLACC SCALE AND FAMILY REQ. PT REPOSITIONED GENTLY FOR COMFORT, FOAM IMMOBILIZER IN PLACE. PO INTAKE MINIMAL, NECTAR THICK LIQ OFFERRED W/ROUNDINGS. IVF CONT PER ORDERS. OSTOMY PUTTING OUT SMALL AMT SOFT BROWN STOOL. FOELY DRNG ANGEL URINE, PLAN TO D/C RODRIGUEZ THIS AM. FAMILY EDUCATED ON PAIN/MEDICATION MGMT. ATTEMPTS TO MG PAIN AND AGITATION CONSERVATIVELY ATTEMPTED. SON IN LAW PRESENT AND ATTENTIVE IN ROOM, CALLING FOR PT NEEDS. WILL CONT TO MONITOR UNTIL REP GIVEN TO ONCOMING RN.
--- NOTE | 2018-10-30 05:49 | NUR ---
PAIN-MEDICATIONS: SON IN LAW CALLING FREQUENTLY T/O NIGHT (APPX Q1-1.5 HRS) FOR CONCERNS OF PT PAIN. PRN ORDERS REVIEW W/SON IN LAW. PT ASSESSED OFTEN, HR TRENDING HIGH 90'S TO LOW 100'S. NONVERBAL INDICATORS ASSESSED AND REVIEWED W/ANDREA. EDUCATION R/T PAIN MEDS, BENZO MEDS AND SIDE EFFECTS OF MEDS INCLUDING INC CONFUSION AND AGITATION DISCUSSED THOROUGHLY T/O NIGHT. ATTEMPTS TO MANAGE PAIN CONSERVATIVELY AND W/NON PHARM METHODS ATTEMPTED. ATTEMPTS TO ESTABLISH PT BASELINE R/T ALERTNESS, VERBAL AND NON VERBAL BEHAVIORS TO ASSIST W/AIDING IN ASSESSMENTS. PT MEDICATED PER EMAR, FLACC SCALE AND FAMILY REQ. ANDREA EDUCATED ON ESTABLISHING REASONABLE PAIN MGMT GOAL R/T RECENT SURGERY AND PT MULTIPLE COMORBIDITIES.
--- NOTE | 2018-10-30 06:45 | NUR ---
recvd report from previous shift rn piper, family in room, pt asleep in bed snoring, spo2 95% on RA, hr 86. bed rails up x 3, bed in lowest position, call light within reach.
--- NOTE | 2018-10-30 10:32 | NUR ---
PHYSICAL THERAPY/OT CO-TREATING PT, PT STANDING AT BEDSIDE WITH FWW AND 2-PERSON ASSIST, UP IN RECLINER WITH NON-SKID SITTING PAD IN PLACE.
--- NOTE | 2018-10-30 11:54 | NUR ---
Palliative Care visit: Multiple visits made to room and with staff per request to assist with completing a POLST and discussing advanced care options. Pt was working with PT on first attempt and Dr saleem on second. Upon return 30 minutes later, pt is asleep in recliner with legs elevated. He looks very comfortable with no nonverbal indicators of pain noted. Jaime, Medina and pt's nearby. Medina states pt's pain was improved AFTER PT and plan is to try oral analgesics that may last longer, crushed in soft foods, to improve pain management efforts. I am unable to assess mentation. Pt has no nonverbal indicators of agitation, anxiety, pain or distress at this time and is cont. to sleep even with conversation nearby. Medina asks that we complete a POLST and states she does not believe one has been completed previously. We spent some time revieweing and discussing options available on the POLST and completed per pt and her/family wishes. Pt would like resuscitation medications attempted but no CPR, intubation or shocks. Limited treatment desired at this time if needed. Tube feedings would only be desired in certain circumstances but trial period with NG only and NO G-tube placement indicated on POLST. Discussed POLST choices with Dr and signature obtained. POLST faxed to medical records and the original given to Medina. Supportive listening provided. Medina is the chosen surrogate decision maker but is in a delicate position with differing views among family members and struggling herself with her dad's failing health. Medina encouraged and thanked for her strength and attentiveness/presence in advocating for her dad. Booklet, "Hard Choices for [place] People" given to her to assist with questions to ask providers and discuss with parents/family. Spoke with RN, PT and CM re: all of above and tentative dc planning also.
--- NOTE | 2018-10-30 17:15 | NUR ---
shift summary: vss, no acute changes, pt remained confused as per his baseline r/t hx of advanced Parkinson's. pt up in chair with physical therapy/OT for 2 hrs. pt required 3 nursing staff max assist back to bed for afternoon nap. pt was able to sleep for approx 1 hr from [id number]. pt with dark rowdy urine output of 500 ml this shift. IV fluids continued per MD orders this shift. pt tolerated PO intake of puree and nectar this liquids, crushed limited medications. pt received ostomy appliance change and abd dressing change this shift. at approx 1645 pt awake, opens eyes, attempts to communicate with family and this RN. pt able to answer with one word simple questions.
--- NOTE | 2018-10-31 07:00 | NUR ---
recvd report from previous RN Reanna, pt asleep in bed, in room with pt. bed in lowest position, bed rails up x 2, call light within reach
--- NOTE | 2018-10-31 08:26 | NUR ---
SHIFT SUMMARY PT ALERT; AT BEDSIDE T/O SHIFT. POD#3 R HIP ARELIS ARTHROPLASTY; DRESSING CDI. ABD DRESSING CDIT, BT X4; STOMA BEEFY. PAIN IN R HIP MANGED PER EMAR. PT FOLLOWED FEW SIMPLE DIRECTIONS. ASPIRATION PRECAUTIONS AND NECTAR THIN LIQUIDS. RODRIGUEZ SECURED. PT REPOSITIONED T/O SHIFT; 2 MOD/MAX ASSIST TO TURN. MEPILEX DRESSING TO COCCYX, NO REDNESS NOTED. WEANED TO RA OVER SHIFT; CONT. BIOXX IN PLACE, O2 SATS OVER 90% T/O SHIFT. REPORT GIVEN TO DAY SHIFT RN.
--- NOTE | 2018-10-31 17:34 | NUR ---
removed stable in midline abdominal incision per Dr Smith telephone orders to remove gayatri and leave open to air. changed ostomy device and bag. attempted to DC beyer catheter per Dr Sepulveda orders. pt's daughter refused to allow DC, asked to speak to Dr Sepulveda. Called dr Sepulveda to report, who called to speak to pt's daughter. following pt's daughter and dr sepulveda speaking, called to report to this RN that the beyer will be DCd in the AM. will provide oncoming shift RN with these instructions.
--- NOTE | 2018-10-31 18:35 | NUR ---
SHIFT SUMMARY: PT REMAINED A/O X 1, WAS ABLE TO ORIENT TO HIS DAUGHTERS AND , ABLE TO RESPOND TO QUESTIONS WITH ONE WORDS ANSWERS PERIODICALLY, OTHER TIMES MOANS AND HAS GARBLED SPEECH. VSS, NO ACUTE CHANGES, BECOMES SLIGHTLY TACHYCARDIC (105-120) WITH INCREASE IN PAIN LEVEL. PT WITH URINE OUTPUT IN RODRIGUEZ CATHETER OF >550 ML THIS SHIFT, URINE IS TEA COLORED AND CLEAR. ATTEMPTED TO REMOVE RODRIGUEZ CATHETER PER MD ORDERS, PT'S DAUGHTER REFUSED AND SPOKE WITH HOSPITALIST. (SEE NOTE) PT UP IN CHAIR WITH PHYSICAL THERAPY AND TWO NURSING STAFF MEMBERS FOR >3 HR THIS SHIFT. TRANSFER BACK TO BED REQUIRED 2 VP RESPIRATORY MEMBERS. PT DOES STAND AND BEAR WEIGHT ON LEGS, UNABLE TO STAND FULLY ERECT AND MOVE FEET BEYOND SLIGHT SHUFFLE, BUT ATTEMPTS TO ASSIST IN TRANSFER. PT WITH INTAKE OF THICKENED LIQUIDS IN SITTING POSITION WITH NO WITNESSED CHOKING. FAMILY IN ROOM THROUGH SHIFT.
--- NOTE | 2018-10-31 21:00 | NUR ---
FAMILY STATED. "LETS WAIT FOR PAIN MEDICATION TO KICK IN." WHEN I ASKED ABOUT PM CARE AND REPOSITIONING.
--- NOTE | 2018-11-01 01:03 | NUR ---
PAIN ASSESSMENT. PT'S DAUGHTER CALLED AND EXPRESSED CONCERN ABOUT PAIN MANAGEMENT AND MENTIONED WANTING AN XRAY TO VERIFY THAT THE HIP JOINT WAS INTACT. SHE WAS ADVISED THAT THE PT APPEARS TO BE RESTING COMFORTABLY AND THAT HIS BEHAVIOR IS BASELINE FROM PREVIOUS ADMISIION ACCORDING TO HIS NOC RN. REQUEST FOR XRAY RELAYED TO HIS RN AND WILL BE REPORTED TO DAY CHARGE NURSE. UPON MY ASSESSMENT THE PT IS SLEEPING, RESP UNLABORED. PEDAL PULSE INTACT, HIP APPEARS TO BE IN ALIGNMENT, WEDGE PILLOW IN PLACE. I SPOKE WITH THE SON IN LAW AND PROVIDED EDUCATION REGARDING PAIN MEDS IN THE ELDERLY AND DISEASE ADVANCEMENT SUCH DEMENTIEA/PARKINSONS. SON IN LAW STATES UNDERSTANDING. WCTM AND ASSESS FREQUENTLY.
[2018-11-01 07:21] LABS: BASOPHILS ABSOLUTE AUTO 0.07 K/mm3 (0.00-0.23); BASOPHILS PERCENT AUTO 1 % (0-2); EOSINOPHILS ABSOLUTE AUTO 0.56 K/mm3 (0.00-0.68); EOSINOPHILS PERCENT AUTO 8 % (0-6); Hemoglobin 12.9 g/dL (13.5-17.5); IMMATURE GRAN ABSOLUTE AUTO 0.02 K/mm3 (0.00-0.10); IMMATURE GRAN PERCENT AUTO 0 % (0-1); LYMPHOCYTES ABSOLUTE AUTO 0.87 K/mm3 (0.84-5.20); LYMPHOCYTES PERCENT AUTO 13 % (21-46); MONOCYTES ABSOLUTE AUTO 0.62 K/mm3 (0.16-1.47); MONOCYTES PERCENT AUTO 9 % (4-13); Mean Corpuscular HGB 31.5 pg (26.0-34.0); Mean Corpuscular HGB Conc 33.1 g/dL (31.5-36.5); Mean Corpuscular Volume 95 fL (80-100); Mean Platelet Volume 10.1 fL (9.1-12.4); NEUTROPHILS ABSOLUTE AUTO 4.56 K/mm3 (1.96-9.15); NEUTROPHILS PERCENT AUTO 68 % (41-73); Platelet Count 261 K/mm3 (150-400); RDW Coefficient Variation 12.3 % (11.7-14.2); RDW Standard Deviation 43.1 fL (35.1-46.3); Red Blood Cell Count 4.09 M/mm3 (4.30-5.90)
--- NOTE | 2018-11-01 07:46 | NUR ---
SHIFT SUMMARY: NO ACUTE CHANGES THIS SHIFT. PAIN MANAGED WITH 50 MCG FENTANYL AND NORCO. GIVEN ATIVAN ONCE. PT REPOSITIONED FREQUENTLY. OSTOMY PRODUCING GAS, HOWEVER NO STOOL OUTPUT. AQUACEL TO R HIP CDI. ICE IN PLACE. PLAN IS TO D/C RODRIGUEZ AND REPLACE WITH CONDOM CATHATER. PT SHOULD TRANSFER TO [facility] FOR SNF. SON IN LAW AT BEDSIDE.
[2018-11-01 07:48] LABS: Anion Gap 6 mmol/L (6-16); Blood Urea Nitrogen 10 mg/dL (8-24); Bun/Creatinine Ratio 13.5 (12.0-20.0); CO2, Blood 28 mmol/L (21-32); Chloride, Blood 106 mmol/L (98-108); Creatinine, Blood 0.74 mg/dL (0.60-1.20); Glomerular Filtration Rate >60 (60-); Glucose, Blood 96 mg/dL (70-99); Potassium, Blood 3.8 mmol/L (3.5-5.5); Sodium, Blood 140 mmol/L (136-145)
--- NOTE | 2018-11-01 07:53 | NUR ---
PAIN/CATHETER DR. GRAY CONTACTED REGARDING DIFFICULTY WITH PO AND DIFFICULTY TAKING FLOMAX. WILL ATTEMPT TO GIVE FLOMAX THIS AM. CATHETER WILL REMAIN IN PLACE SO FLOMAX CAN BE ADMINISTERED AND CHANCES OF VOIDING AFTER CATHETER REMOVAL CAN BE INCREASED. PT HAS NOT HAD ADEQUATE PAIN MANAGEMENT WITH NORCO, REQUESTED THAT PT TRY 2 NORCO INSTEAD OF 1. ALSO DISCUSSED FAMILIES CONCERNS REGARDING DECREASED OSTOMY OUTPUT. PLAN AT THIS TIME IS TO ADMINISTER BOWEL CARE. WILL CONTINUE TO MONITOR.
--- NOTE | 2018-11-01 17:52 | NUR ---
FAMILY REPORTS THAT PT'S LEGS CROSSED DURING A TRANFER YESTERDAY. THEY WERE CONCERNED THAT THE PT HAD INCREASED PAIN LAST NIGHT AND COULD NEED A FOLLOW UP XRAY. DR. NAIK WAS NOTIFIED AND XRAY WAS ORDERED. WILL CONTINUE TO NORI.
--- NOTE | 2018-11-01 19:26 | NUR ---
SHIFT SUMMARY PAIN HAS BEEN MANAGED WITH PO AND IV PAIN MEDICATION THIS SHIFT. PT IS REQUIRING 2 NORCO TO MANAGE PAIN, SMALLER DOSE DOES NOT LAST FULL 4 HOURS. PT HAS BEEN OOB WITH THERAPY X1. HE IS A 2 PERSON ASSIST BUT REQUIRES A LIFT WHEN HE IS TIRED. FAMILY HAS BEEN AT THE BEDSIDE THIS SHIFT. HE REQUIRES FREQUENT REPOSITIONING. CATHETER LEFT IN PLACE UNTIL PT COULD HAVE SEVERAL DOSES OF FLOMAX TO INCREASE ABILITY TO VOID AFTER CATHETER IS REMOVED. VSS. REPORT GIVEN TO ANTOINETTE VALLE.
--- NOTE | 2018-11-02 07:47 | NUR ---
SHIFT SUMMARY RECEIVED REPORT ON PT 0100 FROM NADIR, RN. PT POD#5 R ARELIS-ARTHROPLASTY; DRESSING INTACT. PAIN MANGED PER EMAR. PT A&O TO PERSON; FOLLOWS SOME SIMPLE DIRECTIONS; ANSWERS Y/N TO SOME QUESTIONS. ASPIRATION PRECAUTIONS WITH MEDS/FLUIDS. HEEL PROTECTORS TO BILAT HEELS, MEPILEX DRESSING TO COCCYX, PT REPOSITIONED TOLERATED. FLATUS AND SMALL BM THROUGH OSTOMY. JENNIFER ORANTES'D THIS AM PER ORDER. CALL LIGHT IN REACH; FAMILY AT BED SIDE, SIDE RAILS X3 AND BED ALARM FOR SAFETY. REPORT GIVEN TO DAY SHIFT RN.
--- NOTE | 2018-11-02 13:22 | NUR ---
BLADDER SCAN BLADDER SCAN SHOWED > 199ML IN THE BLADDER. CONDOM CATH IN PLACE. FAMILY ENCOURAGING PT TO VOID. FAMILY IS ORIENTING PT TO THE CATHETER. PT'S DAUGHTER REPORTS SHE FEELS THE PATIENT IS ANXIOUS ABOUT VOIDING AND ABOUT USING THE CONDOM CATH. PT APPEARS TO BE HAVING DIFFICULTY UNDERSTANDING HOW TO USE THE CONDOM CATHETER. HE SAYS HE WANTS TO GET UP AND GO TO THE BATHROOM TO VOID. EXPLAINED TO PATIENT THAT HE ISNT STRONG ENOUGH TO AMBULATE TO THE BATHROOM AT THIS TIME. WILL CONTINUE TO MONITOR.
--- NOTE | 2018-11-02 17:06 | NUR ---
AT APPROXIMATELY 1345 PT WAS UNABLE TO TALK. HE WAS AWAKE AND COULD SLIGHTLY MOVE HIS FINGERS, TOES AND HEAD TO ANSWER YES/NO QUESTIONS. PUPILS EQUAL ROUND AND REACTIVE TO LIGHT. PT COULD TRACK WELL WITH EYES. HE WAS UNABLE TO MOVE ARMS OR OPEN HIS MOUTH. WHEN ASKED IF HE WAS TRYING TO TALK HE SHOOK HIS HEAD YES. DR. GRAY WAS NOTIFIED, AND HE STATED HE WOULD REVIEW MEDICATION. CONTINUE TO OBSERVE PT AT THIS TIME.
--- NOTE | 2018-11-02 17:38 | NUR ---
UNABLE TO VOID PT HAS BEEN UNABLE TO VOID THIS SHIFT. HIS BLADDER SCAN SHOWS 312ML IN THE BLADDER. PT IS COMPLAINING OF DISCOMFORT FROM BEING UNABLE TO VOID. WILL PLACE CATHETER IF PT CONTINUES TO BE UNABLE TO VOID.
[2018-11-02 18:11] LABS: Source, Urine Catheter
[2018-11-02 18:25] LABS: Appearance, Urine Clear (Clear); Bilirubin, Urine Neg (Neg); Blood, Urine 1+ (Neg); Color, Urine Amber (P-Yellow); Glucose Qualitative, Urine Neg (Neg); Ketones, Urine 1+ (Neg); Leukocyte Esterase, Urine 1+ (Neg); Nitrite, Urine Neg (Neg); Protein, Urine 2+ (Neg); Specific Gravity, Urine 1.015 (1.003-1.022); Urobilinogen, Urine 1+ (Normal)
--- NOTE | 2018-11-02 18:33 | NUR ---
SHIFT SUMMARY PAIN HAS BEEN MANAGED WITH PO PAIN MEDICATION THIS SHIFT. PT HAS HAD SOME ANXIETY BUT DID NOT REQUIRE ATIVAN. RODRIGUEZ CATHETER WAS REMOVED THIS AM, PT WAS UNABLE TO VOID. BLADDER SCAN SHOWED 312ML IN BLADDER AND PT WAS COMPLAINING OF DISCOMFORT SO CATHETER WAS PLACED. PT IS A 2 PERSON MAX OR LIFT ASSIST FOR TRANFERS. PT HAS DECREASED INTAKE, DIETARY WAS CONSULTED, PT ASSISTED WITH MEALS BY FAMILY. BOWEL CARE CONTINUED TODAY, PT HAS HAD A SMALL AMOUNT OF STOOL FROM THE OSTOMY, HE IS PASSING FLATUS. FAMILY HAS BEEN AT THE BEDSIDE. VSS. WILL MONITOR UNTIL REPORT TO ONCOMING RN.
[2018-11-02 19:54] LABS: Amorphous Light (0-Heavy); Bacteria Few /hpf; Calcium Oxalate Crystals Few /hpf; Red Blood Cells, Urine 0-2 /hpf (0-2); Squamous Epithelial Cells Not Seen /hpf (Few)
--- NOTE | 2018-11-03 06:55 | NUR ---
recvd report from previous shift rn summer, pt sleeping, son-in-law in room with pt, bed in lowest position, bed rails up x 2. pt with no tremors/moans, snoring
--- NOTE | 2018-11-03 09:44 | NUR ---
pt sleeping peacefully. Pt's daughter, who is medical POA, requests to hold assessment, VS, and medications until pt awakes.
--- NOTE | 2018-11-03 12:09 | NUR ---
UPON ASSESSMENT, PT HAS PREVENTATIVE MEPILEX IN PLACE COCCYX AND HEELS. SKIN APPEARS TO BE WARM, PINK TO PT'S BASELINE, DRY. NO REDNESS AROUND COCCYX/HEELS. NO EXCORIATIONS. WHEN TRANSFERRING PT TO RECLINER CHAIR, LIGHTLY RUBBED PT'S BACK AND SHOULDER. PROVIDED Q2 TURNS AND PILLOWS UNDER PT'S ELBOWS AND ANKLES WHEN REPOSITIONING.
--- NOTE | 2018-11-03 17:42 | NUR ---
shift summary: pt remained a/0 x 1-2, advanced Parkinson's with dementia stable. pt able to follow directions and answer questions, mumbles at times, at times clear speech. pt worked with physical therapy and was up to recliner this morning until approx 1340, pt back to bed with bed bath, ostomy bag changed, preventative mepilex on coccyx and heels. (skin under mepilex pink at baseline, no breakdown noted). pt with family in room at all times. Medical POA daughter Medina with pt today. Urine output in beyer catheter 450 ml, tea colored urine. ostomy with soft brown stool and gas. vss, no acute changes. plan is for pt to transfer to SNF tomorrow if bed available.
--- NOTE | 2018-11-04 07:24 | NUR ---
NO CHANGES SINCE START OF SHIFT. SAFETY MEASURES IN PLACE. HAND OFF GIVEN TO Fiorella MIRZA RN USING SBAR.
--- NOTE | 2018-11-04 12:30 | NUR ---
DISCHARGE: PT EATING AND DRINKNG WITH ASP PRECAUTIONS IN PLACE. PT BEEN ASSISTED WITH ADL'S PRN. PT FAMILY BEEN PRESENT AND WISHING THAT PT BE LEFT ALONE WHEN SLEEPING. PT BEEN REPOSITIONED. PT DRESSING WAS CHANGED EARLIER TODAY. REPORT BEEN GIVEN. BELONGINGS SENT WITH FAMILY. PAPERWORK AND SCRIPT SENT WITH PT WITH TRANSPORT.
== END 2018-11-04 12:37 | DRG 469 ==
LOC: ER 20:06 → SURS 22:06
PROVIDERS: Emergency Medicine; Internal Medicine; Orthopaedic Surgery; ADMIT Hospitalist
PROC: 0SRR0JZ Replacement of Right Hip Joint, Femoral Surface with Synthetic Substitute, Open Approach (ICD-10-PCS; principal; 2018-10-28 12:00)
DX: S72.001A Fracture of unspecified part of neck of right femur, initial encounter for closed fracture (principal); K56.2 Volvulus; Z93.3 Colostomy status; G20 Parkinson's disease; W07.XXXA Fall from chair, initial encounter; F02.80 Dementia in other diseases classified elsewhere, unspecified severity, without behavioral disturbance, psychotic disturbance, mood disturbance, and anxiety; G47.33 Obstructive sleep apnea (adult) (pediatric); N40.0 Benign prostatic hyperplasia without lower urinary tract symptoms; K21.9 Gastro-esophageal reflux disease without esophagitis; F32.9 Major depressive disorder, single episode, unspecified; Z79.82 Long term (current) use of aspirin; Z79.899 Other long term (current) drug therapy; Y92.129 Unspecified place in nursing home as the place of occurrence of the external cause; K59.00 Constipation, unspecified
CPT/HCPCS: 36415; 51702; 70450; 71045; 72125; 72170; 73502; 74018; 80048; 80053; 81001; 85025; 87086; 88305; 88311; 94762; 96374; 97116; 97162; 97166; 97530; 99285-25; C1776; C9113; G8978; G8979; G8987; G8988; G8989; J0690; J1100; J1650; J1885; J2060; J2370; J2405; J2710; J3010; J7120

== ENCOUNTER → 2019-02-26 | Outpatient (CLI) | payer OTHER ==
[~2019-02-26] MED LIST changes: +ESCI10 PO; +HYDR1TAB94 PO; +PANT20 PO
[2019-02-26 20:09] LABS: Appearance, Urine Turbid (Clear); Bilirubin, Urine Neg (Neg); Blood, Urine 1+ (Neg); Color, Urine Amber (P-Yellow); Glucose Qualitative, Urine Neg (Neg); Ketones, Urine 1+ (Neg); Leukocyte Esterase, Urine 3+ (Neg); Nitrite, Urine Pos (Neg); Protein, Urine 3+ (Neg); Specific Gravity, Urine 1.015 (1.003-1.022); Urobilinogen, Urine NORM (Normal)
[2019-02-26 20:18] LABS: Amorphous Mod ({null, 0-Heavy}); Bacteria Many /hpf; Red Blood Cells, Urine 0-2 /hpf (0-2); Squamous Epithelial Cells Not Seen /hpf (Few); Uric Acid Crystals Few /hpf; White Blood Cells, Urine 50-100 /hpf (0-5)
== END | disposition home or self-care (01) ==
LOC: LAB 19:17 → LAB SHORT 19:17
DX: N39.0 Urinary tract infection, site not specified (principal)
CPT/HCPCS: 81001; 87077; 87086; 87186

== ENCOUNTER 2019-03-16 10:57 | Inpatient (IN) | payer OTHER ==
[~2019-03-16] VITALS: Ht 180.3 cm; Wt 63.5 kg
[~2019-03-16 10:57] MED LIST changes: -CARBIDOPA-LEVO1 EAC2 PO; -CHOL10002 PO; -CYAN100T2 PO; +Cough Syru100 MG/5 M PO; -GUAI600T33 PO; -HYDR1TAB94 PO; +SINEMET 25-1001 EACH PO; -Vitamin B Comple1 EA PO; +Vitamin B-12100 MCG PO
[2019-03-16] MEDS ORDERED: Norco 5-325 Ta1 EACH PO (11:24)
[2019-03-16] MEDS ORDERED: LORA2L PO (11:25)
[2019-03-16 11:45] LABS: BASOPHILS ABSOLUTE AUTO 0.04 K/mm3 (0.00-0.23); BASOPHILS PERCENT AUTO 1 % (0-2); EOSINOPHILS PERCENT AUTO 0 % (0-6); Hematocrit 47.8 % (37.0-53.0); Hemoglobin 16.3 g/dL (13.5-17.5); IMMATURE GRAN ABSOLUTE AUTO 0.02 K/mm3 (0.00-0.10); IMMATURE GRAN PERCENT AUTO 0 % (0-1); LYMPHOCYTES ABSOLUTE AUTO 0.46 K/mm3 (0.84-5.20); LYMPHOCYTES PERCENT AUTO 6 % (21-46); MONOCYTES ABSOLUTE AUTO 0.38 K/mm3 (0.16-1.47); MONOCYTES PERCENT AUTO 5 % (4-13); Mean Corpuscular HGB 31.4 pg (26.0-34.0); Mean Corpuscular HGB Conc 34.1 g/dL (31.5-36.5); Mean Corpuscular Volume 92 fL (80-100); NEUTROPHILS ABSOLUTE AUTO 7.53 K/mm3 (1.96-9.15); NEUTROPHILS PERCENT AUTO 89 % (41-73); Platelet Count 198 K/mm3 (150-400); RDW Coefficient Variation 12.4 % (11.7-14.2); RDW Standard Deviation 42.2 fL (35.1-46.3); Red Blood Cell Count 5.19 M/mm3 (4.30-5.90); White Blood Cell Count 8.43 K/mm3 (4.00-11.30)
[2019-03-16 11:59] LABS: Alanine Aminotransfer (ALT/SGP 19 U/L (12-78); Albumin, Blood 3.8 g/dL (3.4-5.0); Albumin/Globulin Ratio 0.9 (0.8-1.8); Alk Phos 78 U/L (50-136); Anion Gap 7 mmol/L (6-16); Aspartate Aminotrans (AST/SGOT 20 U/L (12-37); Bilirubin, Total 0.7 mg/dL (0.1-1.0); Blood Urea Nitrogen 15 mg/dL (8-24); Bun/Creatinine Ratio 18.3 (12.0-20.0); CO2, Blood 28 mmol/L (21-32); Calcium, Blood 10.1 mg/dL (8.5-10.1); Chloride, Blood 104 mmol/L (98-108); Creatinine, Blood 0.82 mg/dL (0.60-1.20); Globulin, Blood 4.1 g/dL (2.2-4.0); Glomerular Filtration Rate >60 (60-); Glucose, Blood 136 mg/dL (70-99); Potassium, Blood 3.9 mmol/L (3.5-5.5); Sodium, Blood 139 mmol/L (136-145); Total Protein, Blood 7.9 g/dL (6.4-8.2)
[2019-03-16 12:17] LABS: Source, Urine Catheter
[2019-03-16 12:32] LABS: Appearance, Urine Turbid (Clear); Blood, Urine 4+ (Neg); Color, Urine Amber (P-Yellow); Glucose Qualitative, Urine Neg (Neg); Ketones, Urine 2+ (Neg); Leukocyte Esterase, Urine 3+ (Neg); Nitrite, Urine Pos (Neg); Protein, Urine 3+ (Neg); Specific Gravity, Urine 1.015 (1.003-1.022); Urobilinogen, Urine NORM (Normal)
[2019-03-16 13:03] LABS: Bilirubin, Urine 1+ (Neg); White Blood Cells, Urine TNTC /hpf (0-5)
[2019-03-16 13:08] LABS: Amorphous Light ({null, 0-Heavy}); Bacteria Many /hpf; Squamous Epithelial Cells Few /hpf (Few); Triple Phosphate Crystals Few /hpf
[2019-03-16] MEDS ORDERED: Vitamin B Comple1 EA PO (14:10)
[2019-03-16] MEDS ORDERED: CHOL10002 PO (14:11)
[2019-03-16] MEDS ORDERED: ENTA200 PO (14:12)
[2019-03-16] MEDS ORDERED: MUCUS ER600 MG PO (14:15)
[2019-03-16] MEDS ORDERED: Acetaminophen325 M1 PO (14:16)
[2019-03-16] MEDS ORDERED: ALBU2.5V5 NEB (14:17)
[2019-03-16] MEDS ORDERED: Systane 0.3-0.1 EACH BOTHEYES (14:19)
[2019-03-16] MEDS ORDERED: ROBAFEN PO (14:20)
[2019-03-17 01:57] LABS: Source, Urine Catheter
[2019-03-17 01:59] LABS: Blood, Urine 5+ (Neg); Glucose Qualitative, Urine Neg (Neg); Ketones, Urine 1+ (Neg); Leukocyte Esterase, Urine 3+ (Neg); Nitrite, Urine Pos (Neg); Protein, Urine 4+ (Neg); Urobilinogen, Urine 1+ (Normal); pH, Urine 6.5 (5.0-8.0)
[2019-03-17 02:03] LABS: Appearance, Urine Hazy (Clear); Bilirubin, Urine 1+ (Neg); Color, Urine Orange (P-Yellow)
[2019-03-17 02:10] LABS: Amorphous Light ({null, 0-Heavy}); Bacteria Many /hpf; Squamous Epithelial Cells Not Seen /hpf (Few); White Blood Cells, Urine TNTC /hpf (0-5)
[2019-03-17 06:30] LABS: BASOPHILS ABSOLUTE AUTO 0.02 K/mm3 (0.00-0.23); BASOPHILS PERCENT AUTO 0 % (0-2); EOSINOPHILS PERCENT AUTO 0 % (0-6); Hematocrit 41.8 % (37.0-53.0); Hemoglobin 14.1 g/dL (13.5-17.5); IMMATURE GRAN ABSOLUTE AUTO 0.01 K/mm3 (0.00-0.10); IMMATURE GRAN PERCENT AUTO 0 % (0-1); LYMPHOCYTES ABSOLUTE AUTO 0.51 K/mm3 (0.84-5.20); LYMPHOCYTES PERCENT AUTO 7 % (21-46); MONOCYTES ABSOLUTE AUTO 0.64 K/mm3 (0.16-1.47); MONOCYTES PERCENT AUTO 9 % (4-13); Mean Corpuscular HGB 31.5 pg (26.0-34.0); Mean Corpuscular HGB Conc 33.7 g/dL (31.5-36.5); Mean Corpuscular Volume 93 fL (80-100); Mean Platelet Volume 9.9 fL (9.1-12.4); NEUTROPHILS ABSOLUTE AUTO 5.81 K/mm3 (1.96-9.15); NEUTROPHILS PERCENT AUTO 83 % (41-73); Platelet Count 182 K/mm3 (150-400); RDW Coefficient Variation 12.5 % (11.7-14.2); RDW Standard Deviation 43.5 fL (35.1-46.3); Red Blood Cell Count 4.48 M/mm3 (4.30-5.90); White Blood Cell Count 6.99 K/mm3 (4.00-11.30)
[2019-03-17 06:45] LABS: Anion Gap 6 mmol/L (6-16); Blood Urea Nitrogen 20 mg/dL (8-24); Bun/Creatinine Ratio 22.5 (12.0-20.0); CO2, Blood 29 mmol/L (21-32); Calcium, Blood 9.1 mg/dL (8.5-10.1); Chloride, Blood 106 mmol/L (98-108); Creatinine, Blood 0.89 mg/dL (0.60-1.20); Glomerular Filtration Rate >60 (60-); Glucose, Blood 123 mg/dL (70-99); Potassium, Blood 3.9 mmol/L (3.5-5.5); Sodium, Blood 141 mmol/L (136-145)
--- NOTE | 2019-03-17 08:06 | NUR ---
SUMMARY NO ACUTE CHANGES NOTED FORM ASSESSMENT. 400 ML NOTED IN NG CANNISTER. NO NAUSEA OR VOMITING. NO FLATUS OR OUTPUT NOTED IN COLOSTOMY BAG. STOMA REMAINS PINK, MOIST. VSS. FLUIDS INFUSING PER EMAR. RODRIGUEZ CHANGED PER POLICY, URINE SAMPLE SENT TO LAB. FAMILY AT BEDSIDE, THEY ASSIST WITH CARE. CALL LIGHT IN REACH, REPORT GIVEN TO DAY RN.
--- NOTE | 2019-03-17 10:38 | NUR ---
HOSPITALIST EILEEN DISCUSSED THE FAMILY'S CONCERS WITH DR. PURVIS WHEN HE ROUNDED. FAMILY VERBALIZED CONCERNS THAT PT HAS REPORTED DIZZINESS, VSS. ALSO PT HAS DIMINISHED LUNG SOUNDS IN THE BASES. FAMILY REQUESTING CHEST XRAY. DR. PURVIS ORDERED CONTINUOUS PULSE OX AT THIS TIME. FAMILY ALSO CONCERNED ABOUT PT'S NUTRITION STATUS. DISCUSSED WITH DR. PURVIS, HE REPORTS HE WILL ORDER CLINIMIX FOR THIS PT. WILL CONTINUE TO MONITOR.
--- NOTE | 2019-03-17 17:48 | NUR ---
SHIFT SUMMARY PT HAS DENIED PAIN THIS SHIFT. FAMILY HAS BEEN AT THE BEDSIDE ASSISTING WITH CARE. PT IS PLEASANTLY CONFUSED. PT IS STARTING TO PASS FLATUS FROM HIS OSTOMY. NG TUBE REMAINS IN PLACE TO LOW INTERMITTENT SUCTION. VSS. WILL MONITOR UNTIL REPORT TO ONCOMING RN.
--- NOTE | 2019-03-17 19:34 | NUR ---
SHIFT SUMMARY PT HAS BEEN DROWSY THIS SHIFT. FAMILY AT THE BEDSIDE ASSISTING WITH CARE. PT DENIES N/V. NG TUBE TO LOW INTERMITTENT SUCTION. PT HAS A PRODUCTIVE COUGH WITH CRISTINA THICK SPUTUM. IS ENCOURAGED, FAMILY ASSISTING PT TO USE. PT PASSING SMALL AMOUNT OF FLATUS FROM OSTOMY. VSS. REPORT GIVEN TO LOREN VALLE.
--- NOTE | 2019-03-18 06:29 | NUR ---
SHIFT SUMMARY PT REMAINS ON FLOOR FOR SBO. OSTOMY HAS A SMALL AMOUNT OF LIQUID STOOL AND GAS IN THE BAG. NG REMAINS TO LIS. BT HYPOACTIVE AT TIME OF ASSESSMENT. CATHETER HAD SEDIMENT PRESENT IN IT AND IT STARTED TO LEAK AROUND THE TUBE LAST NIGHT, FLUSHED WITH NS AND IT STARTED FLOWING AGAIN. PT DENIES NAUSEA OR ABD PAIN. PT ON 2L VIA NC, COUGHING FREQUENTLY, COUGHING UP MODERATE AMOUNTS OF YELLOW PHLEGM. FAMILY MEMBER STAYED THE NIGHT WITH HIM. WILL CTM UNTIL PASS TO NEXT SHIFT.
--- NOTE | 2019-03-18 10:28 | NUR ---
SHIFT ASSESSMENT SHIFT ASSESSMENT BY KRANTHI STUDENT NURSE WAS REVIEWED. THIS RN AGREES WITH THAT DOCUMENTATION.
--- NOTE | 2019-03-18 14:33 | NUR ---
NG TUBE/ABD XRAY DR. POTTS STATED THAT XRAY STILL SHOWS PARTIAL OBSTRUCTION. CLARIFIED WITH DR. POTTS THAT WE WILL CONTINUE WITH NG TUBE TO GRAVITY AND SIPS AND CHIPS. WILL CONTINUE TO MONITOR AND WILL REPORT ANY CHANGES.
--- NOTE | 2019-03-18 16:50 | NUR ---
CLINIMIX FINISHED INFUSION, SALINE LOCKED IV.
--- NOTE | 2019-03-18 16:58 | NUR ---
SHIFT SUMMARY PT WAS ADMITTED FOR A SMALL BOWEL OBSTRUCTIOIN, PT HAS PASSED 4 STOOLS OF 500, 300, 200 AND 50 ML RESPECTIVELY. PT IS CURRENTLY NPO WITH SIP & ICE CHIPS, PT IS 2 PERSON ASSIST TO REPOSITION, FAMILY HAS BEEN IN TO VISIT THROUGH THE DAY, MONITORING PT FOR S/SX OF INFECTION OF URINARY TRACT.
--- NOTE | 2019-03-18 17:25 | NUR ---
SHIFT SUMMARY PT HAS HAD GOOD OUTPUT FROM HIS OSTOMY THIS SHIFT. NG TUBE REMAINS IN TO GRAVITY. PT HAS TOLERATED SIPS AND ICE CHIPS WELL. FAMILY HAS BEEN AT THE BEDSIDE T/O THE DAY. PT REQUIRES 2 PERSON ASSISTANCE FOR REPOSITIONING. VSS. WILL MONITOR UNTIL REPORT TO ONCOMING RN.
[2019-03-19 05:09] LABS: BASOPHILS ABSOLUTE AUTO 0.01 K/mm3 (0.00-0.23); BASOPHILS PERCENT AUTO 0 % (0-2); EOSINOPHILS PERCENT AUTO 0 % (0-6); Hematocrit 39.4 % (37.0-53.0); Hemoglobin 13.2 g/dL (13.5-17.5); IMMATURE GRAN PERCENT AUTO 0 % (0-1); LYMPHOCYTES ABSOLUTE AUTO 0.54 K/mm3 (0.84-5.20); LYMPHOCYTES PERCENT AUTO 14 % (21-46); MONOCYTES ABSOLUTE AUTO 0.41 K/mm3 (0.16-1.47); MONOCYTES PERCENT AUTO 11 % (4-13); Mean Corpuscular HGB 31.7 pg (26.0-34.0); Mean Corpuscular HGB Conc 33.5 g/dL (31.5-36.5); Mean Corpuscular Volume 95 fL (80-100); Mean Platelet Volume 9.9 fL (9.1-12.4); NEUTROPHILS ABSOLUTE AUTO 2.88 K/mm3 (1.96-9.15); NEUTROPHILS PERCENT AUTO 75 % (41-73); Platelet Count 144 K/mm3 (150-400); RDW Coefficient Variation 12.6 % (11.7-14.2); RDW Standard Deviation 43.9 fL (35.1-46.3); Red Blood Cell Count 4.17 M/mm3 (4.30-5.90); White Blood Cell Count 3.84 K/mm3 (4.00-11.30)
--- NOTE | 2019-03-19 05:10 | NUR ---
SHIFT SUMMARY HOSPITAL STAY DAY 3, PT IS BEING SEEN FOR SMALL BOWEL OBSTRUCTION. VSS, 02 SATS >90% ON 2L 02. NG TUBE IN PLACE DRAINING SMALL AMOUNT OF BROWN LIQUID BY GRAVITY. PT HAS HX OF PARKINSONS AND DEMENTIA, MOSTLY INCOMPREHENSIBLE SPEECH, FAMILY AT BEDSIDE THROUGHOUT THIS SHIFT. HX OF BPH, INDWELLING RODRIGUEZ CATHETER IN PLACE WITH ASYMPTOMATIC UTI. SIGNIFICANT SEDIMENT NOTED REQUIRING RODRIGUEZ CATH FLUSH 2X THIS SHIFT. PT HAS A COLOSTOMY WHICH IS PRODUCING BROWN LIQUID STOOL AND FLATUS REGULARLY, BAG EMPTIED 3X THIS SHIFT. PT HAS PRODUCTIVE COUGH, SUCTION AVAILABLE PRN TO HELP REMOVE SECRETIONS. PT DENIED PAIN, N/V THIS SHIFT. WILL CONTINUE TO MONITOR.
[2019-03-19 05:38] LABS: Alanine Aminotransfer (ALT/SGP 7 U/L (12-78); Albumin, Blood 2.7 g/dL (3.4-5.0); Albumin/Globulin Ratio 0.8 (0.8-1.8); Alk Phos 45 U/L (50-136); Anion Gap 5 mmol/L (6-16); Aspartate Aminotrans (AST/SGOT 12 U/L (12-37); Bilirubin, Total 0.9 mg/dL (0.1-1.0); Blood Urea Nitrogen 23 mg/dL (8-24); Bun/Creatinine Ratio 27.4 (12.0-20.0); CO2, Blood 29 mmol/L (21-32); Calcium, Blood 8.6 mg/dL (8.5-10.1); Chloride, Blood 107 mmol/L (98-108); Creatinine, Blood 0.84 mg/dL (0.60-1.20); Globulin, Blood 3.4 g/dL (2.2-4.0); Glomerular Filtration Rate >60 (60-); Glucose, Blood 99 mg/dL (70-99); Magnesium, Blood 2.1 mg/dL (1.6-2.4); Potassium, Blood 3.4 mmol/L (3.5-5.5); Sodium, Blood 141 mmol/L (136-145); Total Protein, Blood 6.1 g/dL (6.4-8.2)
--- NOTE | 2019-03-19 11:39 | NUR ---
DR POTTS RECENTLY HERE.
--- NOTE | 2019-03-19 15:25 | NUR ---
DR JESSICA IN [facility], DISCUSSED PT'S CONCERN'S OF PT HAVING INCREASED CONFUSION LAST NIGHT. DISCUSSED VS AND PT HAVING URINE SENT PREVIOUSLY. REPORTS TO SEND NEW URINE SAMPLE.
[2019-03-19 18:23] LABS: Source, Urine Catheter
[2019-03-19 18:28] LABS: Bilirubin, Urine Neg (Neg); Blood, Urine 3+ (Neg); Glucose Qualitative, Urine Neg (Neg); Ketones, Urine 1+ (Neg); Leukocyte Esterase, Urine 3+ (Neg); Nitrite, Urine Pos (Neg); Protein, Urine 4+ (Neg); Urobilinogen, Urine NORM (Normal)
[2019-03-19 18:45] LABS: Appearance, Urine Hazy (Clear); Color, Urine Yellow (P-Yellow)
[2019-03-19 18:49] LABS: Amorphous Light ({null, 0-Heavy}); White Blood Cells, Urine 25-50 /hpf (0-5)
[2019-03-19 18:50] LABS: Bacteria Many /hpf; Squamous Epithelial Cells Not Seen /hpf (Few); Triple Phosphate Crystals Many /hpf
--- NOTE | 2019-03-19 19:22 | NUR ---
SHIFT SUMMARY PT HAS BEEN UP TO CHAIR TODAY WITH ASSISTANCE. RODRIGUEZ HAS BEEN FLUSHED MULT. TIMES TODAY TO CLEAR TUBE. FAMILY IN WITH PT ALL DAY. NG TUBE HAS BEEN TO GRAVITY. PT HAS REPORTED NO PAIN. OSTOMY HAS BEEN FUNCTIONING TODAY. NG TUBE HAD MINIMAL OUTPUT TODAY. MULTIPLE DR'S IN TO SEE PT. DISCUSSED PT STATUS WITH PHYSICIAN.
--- NOTE | 2019-03-19 21:51 | NUR ---
PHYSICIAN NOTIFICATION 2149 DR. GERARDO GAVE ORDER FOR FLUTTER PER RT REQUEST, LIQUID GUAIFENESIN PER PT HOME MEDS AND MADE AWARE PT CONT. USE OF HOME CBD ROUTINE: PHYSICIAN STS OKAY.
--- NOTE | 2019-03-20 07:34 | NUR ---
SHIFT SUMMARY PT ALERT T/O SHIFT. NG TO GRAVITY; LITTLE BROWN OUTPUT. PT DENIES NAUSEA, TOLERATES CLAMPING FOR MEDICATIONS WELL. SMALL AMOUNT LIQUID STOOL IN OSTOMY APPLIANCE; BEEFY RED STOMA. ABD SOFT; BTX4; DIET PER ORDERS; ASPIRATION PRECAUTIONS. RODRIGUEZ REPLACED WITH 3-WAY FOR EASIER IRRIGATION D/T SEDIMENT/FEQUENT OBSTRUCTION BY ANANTH, RN; URINE DARK AND SEDIMENT NOTED. PAIN AFTER RODRIGUEZ INSERTION TREATED PER EMAR. IV GTT PER EMAR. CONT. OXIMETRY IN PLACE; O2 VIA NC; EVEN WOB; COUGH PRODUCING WHITE FLEM NOTED. PT DAUGHTER AT BEDSIDE T/O SHIFT. PT REPOSITIONED TOLERATED; MEPILEX TO COCCYX. PT DID NOT SLEEP UNTIL ABOUT 0400. LIZA'S TO BLE'S. BED ALARM AND SIDE RAILS FOR SAFETY. CALL LIGHT IN REACH. REPORT GIVEN TO DAY SHIFT RN.
[2019-03-20 07:45] LABS: BASOPHILS ABSOLUTE AUTO 0.03 K/mm3 (0.00-0.23); BASOPHILS PERCENT AUTO 1 % (0-2); EOSINOPHILS ABSOLUTE AUTO 0.02 K/mm3 (0.00-0.68); EOSINOPHILS PERCENT AUTO 1 % (0-6); Hematocrit 38.6 % (37.0-53.0); Hemoglobin 12.5 g/dL (13.5-17.5); IMMATURE GRAN ABSOLUTE AUTO 0.01 K/mm3 (0.00-0.10); IMMATURE GRAN PERCENT AUTO 0 % (0-1); LYMPHOCYTES ABSOLUTE AUTO 0.78 K/mm3 (0.84-5.20); LYMPHOCYTES PERCENT AUTO 18 % (21-46); MONOCYTES ABSOLUTE AUTO 0.53 K/mm3 (0.16-1.47); MONOCYTES PERCENT AUTO 12 % (4-13); Mean Corpuscular HGB Conc 32.4 g/dL (31.5-36.5); Mean Corpuscular Volume 96 fL (80-100); Mean Platelet Volume 10.2 fL (9.1-12.4); NEUTROPHILS ABSOLUTE AUTO 2.95 K/mm3 (1.96-9.15); NEUTROPHILS PERCENT AUTO 68 % (41-73); Platelet Count 139 K/mm3 (150-400); RDW Coefficient Variation 12.4 % (11.7-14.2); RDW Standard Deviation 44.3 fL (35.1-46.3); Red Blood Cell Count 4.03 M/mm3 (4.30-5.90); White Blood Cell Count 4.32 K/mm3 (4.00-11.30)
[2019-03-20 08:06] LABS: Alanine Aminotransfer (ALT/SGP 8 U/L (12-78); Albumin, Blood 2.6 g/dL (3.4-5.0); Albumin/Globulin Ratio 0.7 (0.8-1.8); Alk Phos 44 U/L (50-136); Anion Gap 5 mmol/L (6-16); Aspartate Aminotrans (AST/SGOT 19 U/L (12-37); Bilirubin, Total 0.8 mg/dL (0.1-1.0); Blood Urea Nitrogen 22 mg/dL (8-24); Bun/Creatinine Ratio 25.1 (12.0-20.0); CO2, Blood 30 mmol/L (21-32); Chloride, Blood 106 mmol/L (98-108); Creatinine, Blood 0.88 mg/dL (0.60-1.20); Globulin, Blood 3.5 g/dL (2.2-4.0); Glomerular Filtration Rate >60 (60-); Glucose, Blood 98 mg/dL (70-99); Potassium, Blood 3.6 mmol/L (3.5-5.5); Sodium, Blood 141 mmol/L (136-145); Total Protein, Blood 6.1 g/dL (6.4-8.2)
--- NOTE | 2019-03-20 10:42 | NUR ---
PT PULLED NGT OUT. PT CLEANED UP. WILL LEAVE OUT FOR NOW AND DISCUSS WITH DR WHEN HE ROUNDS ON PT.
--- NOTE | 2019-03-20 11:04 | NUR ---
DR JESSICA HERE. DISCUSSED PT'S STATUS INCLUDING PT PULLING NGT OUT. IVF INCREASED PER
--- NOTE | 2019-03-20 12:20 | NUR ---
PT ASSISTED WITH MEAL. MOUTH CARE PROVIDED BEFORE AND AFTER. PT TOLERATED WELL. FAMILY IN ROOM. PT WAS SITTING UP IN CHAIR WITH ASP PRECAUTIONS IN PLACE.
--- NOTE | 2019-03-20 16:11 | NUR ---
DISCUSSED PT'S STATUS EARLIER TODAY WITH DR POTTS INCLUDING PT PULLING OUT NGT AND WHAT PT WAS ABLE TO TOLERATE AT LUNCH TIME.
--- NOTE | 2019-03-20 17:25 | NUR ---
SHIFT SUMMARY PT HAS BEEN UP TO CHAIR TODAY. PT TRANSFERS WITH 2X ASSIST. PT DID PULL OUT NG TUBE TODAY. TALKED TO ABOUT THIS. SAID LEAVE NG OUT. PT TOLERATING SMALL AMOUNTS OF DIET. RODRIGUEZ HAS BEEN FLUSHED TODAY. OSTOMY IS FUNCTIONING. FAMILY HAS BEEN WITH PT TODAY.
--- NOTE | 2019-03-20 18:35 | NUR ---
PT ASSISTED WITH DINNER WITH ASP PRECAUTIONS IN PLACE. PT TOLERATED WELL. FAMILY IN ROOM. PT AND FAMILY BEEN ASSISTED WITH ADL'S PRN.
--- NOTE | 2019-03-21 04:38 | NUR ---
SUMMARY: PT ADMITTED FOR SBO. OSTOMY DRAINING WELL, LIQUID BROWN STOOL, APPLIANCE BAG CHANGED THIS SHIFT DUE TO LEAKING. PT'S RODRIGUEZ NEEDED FLUSHED X2 TONIGHT DUE TO SEDIMENT BUILD UP, PT REPORTED A BURNING FEELING IN BLADDER, ABLE TO GIVE PYRIDIUM. NO N/V TONIGHT. ASPIRATION PRECAUTIONS IN PLACE BED ALARM ON FOR SAFETY. PT ON 2L O2 WHILE SLEEPING TO MAINTAIN SPO2 ABOVE 90%, FLUTTER VALVE ENCOURAGED. PT HAS HAD FAMILY IN ROOM ALL THOUGHOUT THIS EVENING. VSS, NO ACUTE SAFETY CONCERNS AT THIS TIME.
--- NOTE | 2019-03-21 07:35 | NUR ---
pt sleeping family asleep in recliner wakes to verbal stimuli stated he just feel asleep awhile ago req to sleep longer instructed to call when he wakes
--- NOTE | 2019-03-21 14:00 | NUR ---
DR POTTS BY TO SEE PT IV LEAKING ATTEMPTED TO START X2 OK TO LEAVE OUT PT GITA DIET NO N/V PASSING STOOL AND FLATUS PER OSTOMY PLAN FOR POSS D/C EDOUARD
--- NOTE | 2019-03-21 15:36 | NUR ---
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
--- NOTE | 2019-03-21 16:40 | NUR ---
PT SITTING UP IN CHAIR AT BEDSIDE EARLIER PT HAD ENSURE
--- NOTE | 2019-03-21 18:15 | NUR ---
asked pt if he would like to get johanna into bed pt declined at this time family at bedside stated appeatute was not as good as lunch
--- NOTE | 2019-03-22 05:25 | NUR ---
SHIFT SUMMARY LYING IN LOW FOWLERS WITH EYES CLOSED. DENIES PAIN, DISCOMFORT, OR FURTHER NEEDS AT THIS TIME. GOOD OUTPUT FROM COLOSTOMY. 250ML SEMI FORMED BROWN STOOL EMPTIED FROM COLOSTOMY. BAG BURPED 4 TIMES THROUGHOUT SHIFT. RODRIGUEZ CATH IRRIGATED WITH STERILE WATER ONCE THIS SHIFT. NO FURTHER CHANGES. SAFETY MEASURES IN PLACE. WILL GIVE HAND OFF TO ONCOMING SHIFT USING SBAR.
--- NOTE | 2019-03-22 13:47 | NUR ---
PATIENT D/C'D VIA TRANSPORT TO [facility] AT THIS TIME. TO FOLLOW. PATIENT W/O C/O. OSTOMY CONT TO HAVE BROWN LIQUID STOOL OUTPUT. IV LFA D/C'D; SITE CLEAR. ATTEMPTED TO CONTACT NURSE AT [facility]; MESSAGE LEFT. NO ACUTE CHANGES.
--- NOTE | 2019-03-22 14:17 | NUR ---
REPORT GIVEN TO ZAINAB AT .
[2019-03-23] MEDS ORDERED: Cipro500 MG PO (13:31)
[2019-03-23] MEDS ORDERED: PANT20 PO (15:00)
[2019-03-23] MEDS ORDERED: LORAZEPAM2 MG/1 ML PO (15:01)
== END 2019-03-22 13:55 | disposition home health service (06) | DRG 390 ==
LOC: ER 10:57 → SURS 14:57
PROVIDERS: Emergency Medicine; Internal Medicine; ADMIT Hospitalist
DX: K56.50 Intestinal adhesions [bands], unspecified as to partial versus complete obstruction (principal); Z79.82 Long term (current) use of aspirin; N40.0 Benign prostatic hyperplasia without lower urinary tract symptoms; G47.30 Sleep apnea, unspecified; F03.90 Unspecified dementia, unspecified severity, without behavioral disturbance, psychotic disturbance, mood disturbance, and anxiety; K21.9 Gastro-esophageal reflux disease without esophagitis; Z87.19 Personal history of other diseases of the digestive system; G20 Parkinson's disease; Z90.49 Acquired absence of other specified parts of digestive tract; R82.71 Bacteriuria
CPT/HCPCS: 36415; 74022; 74177; 80048; 80053; 81001; 82947; 83735; 84443; 85025; 87077; 87086; 87186; 94640; 94667; 94762; 96360-59; 96361-59; 99285-25; C9113; J1650; J3010; J7042; J7120; Q9967

== ENCOUNTER 2019-03-23 10:26 | Observation (INO) | payer OTHER ==
[~2019-03-23] VITALS: Ht 180.3 cm; Wt 79.4 kg
[~2019-03-23 10:26] MED LIST changes: +ALBU2.5V5 NEB; +Acetaminophen325 M1 PO; +CHOL10002 PO; +ENTA200 PO; +LORA2L PO; +MUCUS ER600 MG PO; +ROBAFEN PO; +Systane 0.3-0.1 EACH BOTHEYES; +Vitamin B Comple1 EA PO
[2019-03-23 11:10] LABS: BASOPHILS ABSOLUTE AUTO 0.02 K/mm3 (0.00-0.23); BASOPHILS PERCENT AUTO 1 % (0-2); EOSINOPHILS ABSOLUTE AUTO 0.13 K/mm3 (0.00-0.68); EOSINOPHILS PERCENT AUTO 3 % (0-6); Hematocrit 39.2 % (37.0-53.0); Hemoglobin 13.3 g/dL (13.5-17.5); IMMATURE GRAN ABSOLUTE AUTO 0.02 K/mm3 (0.00-0.10); IMMATURE GRAN PERCENT AUTO 1 % (0-1); LYMPHOCYTES ABSOLUTE AUTO 0.65 K/mm3 (0.84-5.20); LYMPHOCYTES PERCENT AUTO 16 % (21-46); MONOCYTES ABSOLUTE AUTO 0.44 K/mm3 (0.16-1.47); MONOCYTES PERCENT AUTO 11 % (4-13); Mean Corpuscular HGB 31.4 pg (26.0-34.0); Mean Corpuscular HGB Conc 33.9 g/dL (31.5-36.5); Mean Corpuscular Volume 93 fL (80-100); Mean Platelet Volume 10.1 fL (9.1-12.4); NEUTROPHILS ABSOLUTE AUTO 2.76 K/mm3 (1.96-9.15); NEUTROPHILS PERCENT AUTO 69 % (41-73); Platelet Count 207 K/mm3 (150-400); RDW Coefficient Variation 12.3 % (11.7-14.2); Red Blood Cell Count 4.23 M/mm3 (4.30-5.90); White Blood Cell Count 4.02 K/mm3 (4.00-11.30)
[2019-03-23 11:27] LABS: Source, Urine Catheter
[2019-03-23 11:33] LABS: Alanine Aminotransfer (ALT/SGP 11 U/L (12-78); Albumin, Blood 2.6 g/dL (3.4-5.0); Albumin/Globulin Ratio 0.8 (0.8-1.8); Alk Phos 47 U/L (50-136); Anion Gap 4 mmol/L (6-16); Aspartate Aminotrans (AST/SGOT 17 U/L (12-37); Bilirubin, Total 0.6 mg/dL (0.1-1.0); Blood Urea Nitrogen 13 mg/dL (8-24); Bun/Creatinine Ratio 15.6 (12.0-20.0); CO2, Blood 27 mmol/L (21-32); Calcium, Blood 8.6 mg/dL (8.5-10.1); Chloride, Blood 110 mmol/L (98-108); Creatinine, Blood 0.83 mg/dL (0.60-1.20); Globulin, Blood 3.4 g/dL (2.2-4.0); Glomerular Filtration Rate >60 (60-); Glucose, Blood 94 mg/dL (70-99); Potassium, Blood 3.7 mmol/L (3.5-5.5); Sodium, Blood 141 mmol/L (136-145)
[2019-03-23 11:40] LABS: Appearance, Urine Turbid (Clear); Bilirubin, Urine Neg (Neg); Blood, Urine 5+ (Neg); Color, Urine Amber (P-Yellow); Glucose Qualitative, Urine Neg (Neg); Ketones, Urine Neg (Neg); Leukocyte Esterase, Urine 3+ (Neg); Nitrite, Urine Pos (Neg); Protein, Urine 3+ (Neg); Specific Gravity, Urine 1.015 (1.003-1.022); Urobilinogen, Urine NORM (Normal)
[2019-03-23 12:12] LABS: Bacteria Many /hpf; Squamous Epithelial Cells Rare /hpf (Few); Triple Phosphate Crystals Mod /hpf
[2019-03-23] MEDS ORDERED: Cipro500 MG PO (13:31)
[2019-03-23] MEDS ORDERED: PANT20 PO (15:00)
[2019-03-23] MEDS ORDERED: LORAZEPAM2 MG/1 ML PO (15:01)
--- NOTE | 2019-03-23 18:09 | NUR ---
SHIFT SUMMARY NEW ER ADMIT FOR SBO. PT IS ALERT AND ORIENTED WHEN WOKEN UP, BUT IS DROWSY SINCE RECEIVING ATIVAN IN ER. HE DOES HAVE HX OF DEMENTIA WITH CONFUSION SO BED ALARM ON FOR SAFETY. NO S/S PAIN AT THIS TIME. PT RESTING. COLOSTOMY PUTTING OUT GAS AND VERY SMALL AMOUNT OF BROWN LIQ STOOL. STOMA BEEFY RED. BTS PRESENT X4 QUAD AND HYPERACTIVE. PROTECTIVE MEPILEX DRESSING APPLIED TO COCCYX AND BILAT HEELS. IVF INFUSING PER ORDERS. CLEAR LIQ NECTAR THICK LIQ OFFERED. VSS. FAMILY PRESENT FOR SUPPORT. CALL LIGHT WITHIN REACH.
[2019-03-24 04:44] LABS: BASOPHILS ABSOLUTE AUTO 0.04 K/mm3 (0.00-0.23); BASOPHILS PERCENT AUTO 1 % (0-2); EOSINOPHILS ABSOLUTE AUTO 0.17 K/mm3 (0.00-0.68); EOSINOPHILS PERCENT AUTO 5 % (0-6); Hematocrit 37.6 % (37.0-53.0); Hemoglobin 12.8 g/dL (13.5-17.5); IMMATURE GRAN ABSOLUTE AUTO 0.02 K/mm3 (0.00-0.10); IMMATURE GRAN PERCENT AUTO 1 % (0-1); LYMPHOCYTES ABSOLUTE AUTO 0.86 K/mm3 (0.84-5.20); LYMPHOCYTES PERCENT AUTO 23 % (21-46); MONOCYTES ABSOLUTE AUTO 0.47 K/mm3 (0.16-1.47); MONOCYTES PERCENT AUTO 12 % (4-13); Mean Corpuscular HGB 31.8 pg (26.0-34.0); Mean Corpuscular Volume 94 fL (80-100); Mean Platelet Volume 9.6 fL (9.1-12.4); NEUTROPHILS ABSOLUTE AUTO 2.24 K/mm3 (1.96-9.15); NEUTROPHILS PERCENT AUTO 59 % (41-73); Platelet Count 209 K/mm3 (150-400); RDW Coefficient Variation 12.3 % (11.7-14.2); RDW Standard Deviation 42.3 fL (35.1-46.3); Red Blood Cell Count 4.02 M/mm3 (4.30-5.90)
[2019-03-24 05:06] LABS: Alanine Aminotransfer (ALT/SGP 15 U/L (12-78); Albumin, Blood 2.8 g/dL (3.4-5.0); Albumin/Globulin Ratio 0.8 (0.8-1.8); Alk Phos 48 U/L (50-136); Anion Gap 5 mmol/L (6-16); Aspartate Aminotrans (AST/SGOT 19 U/L (12-37); Bilirubin, Total 0.7 mg/dL (0.1-1.0); Blood Urea Nitrogen 12 mg/dL (8-24); Bun/Creatinine Ratio 15.7 (12.0-20.0); CO2, Blood 26 mmol/L (21-32); Calcium, Blood 8.7 mg/dL (8.5-10.1); Chloride, Blood 111 mmol/L (98-108); Creatinine, Blood 0.77 mg/dL (0.60-1.20); Globulin, Blood 3.4 g/dL (2.2-4.0); Glomerular Filtration Rate >60 (60-); Glucose, Blood 91 mg/dL (70-99); Magnesium, Blood 2.3 mg/dL (1.6-2.4); Potassium, Blood 3.4 mmol/L (3.5-5.5); Sodium, Blood 142 mmol/L (136-145); Total Protein, Blood 6.2 g/dL (6.4-8.2)
--- NOTE | 2019-03-24 05:48 | NUR ---
SHIFT SUMMARY: PT MUMBLING/INCOMPREHENSABLE T/O SHIFT. APPEARS AGITATED AT TIMES; PICKING AT LINES/TUBES. GIVEN 0.5MG OF ATIVAN TWICE PER EMAR. URINE REMAINS ANGEL IN COLOR WITH SEDIMENT. BLADDER IRRIGATED WITH 30ML THREE TIMES OVER NIGHT. OSTOMY PRODUCING MODERATE AMOUNT OF GAS AND LIQUID BROWN STOOL (500 ML TOTAL). PT COUGHING T/O SHIFT. SPUTUM THICK AND YELLOW IN COLOR. NEW ORDER FOR GUAIFENESIN Q12 PRN. PROTECTIVE MEPILEX DRESSING ON BILATERAL HEELS AND COCCYX. 2 MOD ASSIST FOR REPOSITONING.
--- NOTE | 2019-03-24 18:49 | NUR ---
SHIFT SUMMARY PT HAS BEEN CONFUSED AND PICKING AT LINES, BUT PLEASANT AND COOPERATIVE WITH CARE. CODE STATUS MODIFIED TO LIMITED CODE MEDICATIONS ONLY. SPEECH EVAL COMPLETED: ASP PRECAUTIONS, NECTOR THICK, NO STRAWS; MEDS CRUSHED IN APPLESAUCE. PT SITTING AT 45 DEGREES. OSTOMY L SIDE, BEEFY RED, PASSING GAS AND BROWN STOOL. RODRIGUEZ FLUSHED 3X THIS SHIFT. FAMILY AT BEDSIDE ENTIRE SHIFT. REPORT GIVEN TO NISH VALLE.
--- NOTE | 2019-03-25 05:21 | NUR ---
SHIFT SUMMARY: PT APPEARS TO BE MORE ALERT T/O SHIFT. EYES OPEN AND RESPONDING WITH WORDS. PT NOT MAKING SENSE AT TIMES. PT APPEARS TO BE LESS AGITATED HE IS NOT PICKING/PULLING AT LINES AND TIBES. FLUIDS INFUSING PER EMAR. BLADDER IRRIGATED T/O SHIFT. GITA NECTAR THICK CLR LIQ DIET. NOT COUGHING MUCH THIS SHIFT. GIVEN 0.5MG OF ATIVAN BEFORE BED. PT HAD A DIFFICULT TIME FALLING ASLEEP. GIVEN REMERON PER EMAR; PT HAS BEEN SLEEPING SINCE. OSTOMY PUTTING OUT MODERATE AMOUNT OF GAS+LIQ BROWN STOOL. PT SHOULD DISCHARGE BACK TO [facility] TODAY. NO CONCERNS AT THIS TIME.
[2019-03-25] MEDS ORDERED: ARTIFICIAL TEAR15 M1 BOTHEYES (11:18)
[2019-03-25] MEDS ORDERED: MIRT30 PO (11:20)
[2019-03-25] MEDS ORDERED: LEVFLO500 PO (11:24)
--- NOTE | 2019-03-25 19:19 | NUR ---
DISCHARGE SUMMARY PT LEFT BY GURNEY TRANSPORT TO GO TO [facility] WITH ALL PERSONAL POSSESSIONS. 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 JENNIFER IN PLACE. 2 REGINAS ROLANDA'Armida.
== END 2019-03-25 18:15 ==
LOC: ER 10:26 → SURS 10:27 → ER 16:59 → SURS 17:12
PROVIDERS: Internal Medicine; ADMIT Internal Medicine
DX: K56.609 Unspecified intestinal obstruction, unspecified as to partial versus complete obstruction (principal); G20 Parkinson's disease; F02.80 Dementia in other diseases classified elsewhere, unspecified severity, without behavioral disturbance, psychotic disturbance, mood disturbance, and anxiety; N40.0 Benign prostatic hyperplasia without lower urinary tract symptoms; K21.9 Gastro-esophageal reflux disease without esophagitis; G47.00 Insomnia, unspecified; G47.33 Obstructive sleep apnea (adult) (pediatric); Z79.899 Other long term (current) drug therapy; Z79.82 Long term (current) use of aspirin
CPT/HCPCS: 36415; 51700; 74018; 80053; 81001; 83735; 84443; 85025; 87077; 87086; 87186; 92610; 96361-59; 96365-59; 99285-25; C9113; J0696; J1650; J1956; J7030

== ENCOUNTER → 2019-04-19 | Outpatient (CLI) | payer OTHER ==
[~2019-04-19] MED LIST changes: +ARTIFICIAL TEAR15 M1 BOTHEYES; +Cipro500 MG PO; +HYDPAM25 PO; +LEVFLO500 PO; +LORAZEPAM2 MG/1 ML PO; +MIRT30 PO
[2019-04-19 10:00] LABS: Source, Urine Catheter
[2019-04-19 10:04] LABS: Appearance, Urine Turbid (Clear); Bilirubin, Urine Neg (Neg); Blood, Urine 5+ (Neg); Color, Urine Amber (P-Yellow); Glucose Qualitative, Urine Neg (Neg); Ketones, Urine 1+ (Neg); Leukocyte Esterase, Urine 3+ (Neg); Nitrite, Urine Pos (Neg); Protein, Urine 3+ (Neg); Specific Gravity, Urine 1.015 (1.003-1.022); Urobilinogen, Urine NORM (Normal)
[2019-04-19 10:12] LABS: White Blood Cells, Urine TNTC /hpf (0-5)
[2019-04-19 10:13] LABS: Red Blood Cells, Urine 25-50 /hpf (0-2)
[2019-04-19 10:16] LABS: Bacteria Many /hpf; Squamous Epithelial Cells Rare /hpf (Few)
== END | disposition home or self-care (01) ==
LOC: LAB HH 09:53
DX: N39.0 Urinary tract infection, site not specified (principal)
CPT/HCPCS: 81001; 87086

== ENCOUNTER 2019-04-24 03:38 | Inpatient (IN) | payer OTHER ==
[~2019-04-24] VITALS: Ht 185.4 cm; Wt 66.5 kg
[~2019-04-24 03:38] MED LIST changes: -HYDPAM25 PO
[2019-04-24 04:03] LABS: BASOPHILS ABSOLUTE AUTO 0.04 K/mm3 (0.00-0.23); BASOPHILS PERCENT AUTO 0 % (0-2); EOSINOPHILS ABSOLUTE AUTO 0.01 K/mm3 (0.00-0.68); EOSINOPHILS PERCENT AUTO 0 % (0-6); Hematocrit 46.9 % (37.0-53.0); Hemoglobin 15.4 g/dL (13.5-17.5); IMMATURE GRAN ABSOLUTE AUTO 0.04 K/mm3 (0.00-0.10); IMMATURE GRAN PERCENT AUTO 0 % (0-1); LYMPHOCYTES ABSOLUTE AUTO 0.74 K/mm3 (0.84-5.20); LYMPHOCYTES PERCENT AUTO 7 % (21-46); MONOCYTES ABSOLUTE AUTO 0.31 K/mm3 (0.16-1.47); MONOCYTES PERCENT AUTO 3 % (4-13); Mean Corpuscular HGB 31.1 pg (26.0-34.0); Mean Corpuscular HGB Conc 32.8 g/dL (31.5-36.5); Mean Corpuscular Volume 95 fL (80-100); Mean Platelet Volume 9.4 fL (9.1-12.4); NEUTROPHILS ABSOLUTE AUTO 9.78 K/mm3 (1.96-9.15); NEUTROPHILS PERCENT AUTO 90 % (41-73); Platelet Count 235 K/mm3 (150-400); RDW Coefficient Variation 13.1 % (11.7-14.2); RDW Standard Deviation 45.6 fL (35.1-46.3); Red Blood Cell Count 4.95 M/mm3 (4.30-5.90); White Blood Cell Count 10.92 K/mm3 (4.00-11.30)
[2019-04-24 04:08] LABS: Source, Urine Clean Catch
[2019-04-24 04:13] LABS: Appearance, Urine Turbid (Clear); Bilirubin, Urine Neg (Neg); Blood, Urine 2+ (Neg); Color, Urine Yellow (P-Yellow); Glucose Qualitative, Urine Neg (Neg); Ketones, Urine 2+ (Neg); Leukocyte Esterase, Urine 3+ (Neg); Nitrite, Urine Pos (Neg); Protein, Urine 4+ (Neg); Specific Gravity, Urine 1.015 (1.003-1.022); Urobilinogen, Urine NORM (Normal)
[2019-04-24 04:16] LABS: Amorphous Mod (0-Heavy); Bacteria Many /hpf; Red Blood Cells, Urine 0-2 /hpf (0-2); Squamous Epithelial Cells Not Seen /hpf (Few); Triple Phosphate Crystals Mod /hpf; White Blood Cells, Urine TNTC /hpf (0-5)
[2019-04-24 04:20] LABS: Alanine Aminotransfer (ALT/SGP 12 U/L (12-78); Albumin, Blood 3.5 g/dL (3.4-5.0); Albumin/Globulin Ratio 0.9 (0.8-1.8); Alk Phos 79 U/L (50-136); Anion Gap 6 mmol/L (6-16); Aspartate Aminotrans (AST/SGOT 14 U/L (12-37); Bilirubin, Total 0.9 mg/dL (0.1-1.0); Blood Urea Nitrogen 14 mg/dL (8-24); Bun/Creatinine Ratio 15.8 (12.0-20.0); CO2, Blood 31 mmol/L (21-32); Calcium, Blood 9.9 mg/dL (8.5-10.1); Chloride, Blood 104 mmol/L (98-108); Creatinine, Blood 0.89 mg/dL (0.60-1.20); Globulin, Blood 4.1 g/dL (2.2-4.0); Glomerular Filtration Rate >60 (60-); Glucose, Blood 193 mg/dL (70-99); Potassium, Blood 3.9 mmol/L (3.5-5.5); Sodium, Blood 141 mmol/L (136-145); Total Protein, Blood 7.6 g/dL (6.4-8.2)
[2019-04-24] MEDS ORDERED: HYDPAM25 PO (04:27)
[2019-04-24] MEDS ORDERED: SINEMET 25-1001 EACH PO (04:29)
[2019-04-24 07:48] LABS: Source, Urine Clean Catch
[2019-04-24 07:54] LABS: Bilirubin, Urine Neg (Neg); Blood, Urine 3+ (Neg); Glucose Qualitative, Urine Neg (Neg); Ketones, Urine 1+ (Neg); Leukocyte Esterase, Urine 3+ (Neg); Nitrite, Urine Pos (Neg); Protein, Urine 3+ (Neg); Specific Gravity, Urine 1.015 (1.003-1.022); Urobilinogen, Urine NORM (Normal)
[2019-04-24 08:01] LABS: Appearance, Urine Turbid (Clear); Color, Urine Orange (P-Yellow)
[2019-04-24 08:03] LABS: White Blood Cells, Urine TNTC /hpf (0-5)
[2019-04-24 08:04] LABS: Bacteria Mod /hpf; Squamous Epithelial Cells Rare /hpf (Few); Triple Phosphate Crystals Many /hpf
[2019-04-24 08:05] LABS: Amorphous Light (0-Heavy)
--- NOTE | 2019-04-24 10:13 | NUR ---
PT ARRIVED TO FLOOR FROM ED HOOKED NG TO LIS. PLACED NEW RODRIGUEZ PER PROTOCOL. 16 COUDE. UA SENT IN ED. EDEMA NOTED TO PENIS. HOOKED UP SUCTION DUE TO PT HAVING THICK WHITE SECRETIONS CANNOT CLEAR INDEPENDENTLY. PLACED PROTECTIVE MEPILEX TO BUTTOCKS. REPOSITIONED TO L SIDE. BED ALARM ON. SPOUSE AT BEDSIDE. CALL LIGHT ON BED.
--- NOTE | 2019-04-24 11:12 | NUR ---
NG TUBE NG TUBE HAD CURLED UP IN BACK OF PT'S MOUTH. ATTEMPTED TO READVANCE UNSUCCESSFULLY. REMOVED. PT'S DAUGHTER DOES NOT WANT US TO REATTEMPT PLACING NG AT THIS TIME.
--- NOTE | 2019-04-24 17:29 | NUR ---
SUMMARY PT ARRIVED TO UNIT FROM ED THIS SHIFT. PT'S NG CURLED IN MOUTH AND WAS REMOVED. THIS AFTERNOON, PLACED NEW SIZE 14 NG TO R NARES. DRAINING BROWNISH GREEN FLUID. NO OSTOMY OUTPUT. IV FLUIDS INFUSING. POOR URINARY OUTPUT. MEDICATED PER ORDERS DURING SHIFT FOR PAIN. DAUGHTER AT BEDSIDE.
[2019-04-25 04:32] LABS: Hematocrit 41.2 % (37.0-53.0); Hemoglobin 13.4 g/dL (13.5-17.5); Mean Corpuscular HGB Conc 32.5 g/dL (31.5-36.5); Mean Corpuscular Volume 95 fL (80-100); Mean Platelet Volume 9.8 fL (9.1-12.4); Platelet Count 227 K/mm3 (150-400); RDW Coefficient Variation 13.2 % (11.7-14.2); Red Blood Cell Count 4.32 M/mm3 (4.30-5.90); White Blood Cell Count 10.75 K/mm3 (4.00-11.30)
[2019-04-25 04:49] LABS: Alanine Aminotransfer (ALT/SGP 10 U/L (12-78); Albumin, Blood 2.9 g/dL (3.4-5.0); Albumin/Globulin Ratio 0.8 (0.8-1.8); Alk Phos 63 U/L (50-136); Anion Gap 4 mmol/L (6-16); Aspartate Aminotrans (AST/SGOT 8 U/L (12-37); Bilirubin, Total 0.9 mg/dL (0.1-1.0); Blood Urea Nitrogen 17 mg/dL (8-24); Bun/Creatinine Ratio 18.5 (12.0-20.0); CO2, Blood 33 mmol/L (21-32); Calcium, Blood 9.5 mg/dL (8.5-10.1); Chloride, Blood 106 mmol/L (98-108); Creatinine, Blood 0.92 mg/dL (0.60-1.20); Globulin, Blood 3.7 g/dL (2.2-4.0); Glomerular Filtration Rate >60 (60-); Glucose, Blood 119 mg/dL (70-99); Potassium, Blood 4.5 mmol/L (3.5-5.5); Sodium, Blood 143 mmol/L (136-145); Total Protein, Blood 6.6 g/dL (6.4-8.2)
--- NOTE | 2019-04-25 08:10 | NUR ---
SUMMARY: NO ACUTE CHANGES THIS SHIFT. SBO ON HOSPITALIST SERVICE WITH SURGICAL CONSULT CALLED. NPO WITH NG TO LIWS AND 175 ML BROWN/ GREEN OUTPUT. CHRONIC RODRIGUEZ PATENT SEDIMENT FILLED ANGEL URINE AFTER IV BOULS. VSS, AFEBRILE. ABD APPEARS DISTENDED, FIRM AND NO OUTPUT OR GAS PRESENT IN COLOSTOMY. FAMILY REMAINS AT BEDSIDE. ABD PAIN WELL MANAGED WITH IV FENTANYL X4 THIS SHIFT. CONTINUE TO MONITOR AND AWAIT SURGICAL CONSULT.
--- NOTE | 2019-04-25 18:49 | NUR ---
SUMMARY PICC LINE PLACED TO RIGHT UPPER ARM AND TPN STARTED PER PICC LINE. NO OSTOMY OUTPUT THIS SHIFT, PATIENT WITH HYPOACTIVE BOWEL SOUNDS. PATIENT MEDICATED FOR PAIN X1 AND SLEPT AFTER MEDICATED. PATIENT CALM AND COOPERATIVE THROUGHOUT SHIFT. FAMILY AT BEDSIDE THROUGHOUT SHIFT AND ATTENTIVE TO PATIENT
[2019-04-26 05:46] LABS: Anion Gap 1 mmol/L (6-16); Blood Urea Nitrogen 24 mg/dL (8-24); CO2, Blood 35 mmol/L (21-32); Calcium, Blood 9.5 mg/dL (8.5-10.1); Chloride, Blood 107 mmol/L (98-108); Creatinine, Blood 0.89 mg/dL (0.60-1.20); Glomerular Filtration Rate >60 (60-); Glucose, Blood 121 mg/dL (70-99); Magnesium, Blood 2.6 mg/dL (1.6-2.4); Phosphorus, Blood 2.5 mg/dL (2.5-4.9); Sodium, Blood 143 mmol/L (136-145)
--- NOTE | 2019-04-26 07:40 | NUR ---
SHIFT SUMMARY PT RESTED WELL THIS AM. CONFUSED/GARBLED SPEECH. OSTOMY WITH SCANT OUTPUT, NO DRAINAGE THIS SHIFT. UPPER ABD QUADS ACTIVE BTs, WITH LOWERS HYPO. TURN Q2H. NGT TO LIS, LARGE AMOUNT CLEAR/PINK OUT. TPN VIA PICC LINE PER ORDERS. CHRONIC RODRIGUEZ WITH LARGE AMOUNT DARK YELLOW WITH SEDIMENT. AT BEDSIDE T/O NIGHT, LOVING + ATTENTIVE. BED ALARM ON FOR SAFETY. USES CALL LIGHT. PT RESTING AT THIS TIME. REPORT TO DAY SHIFT RN.
--- NOTE | 2019-04-26 15:02 | NUR ---
TRANSFER OF CARE PATIENT DENIES PAIN, NAUSEA, AND SHORTNESS OF BREATH. FAMILY AT BEDSIDE. NG TUBE IN PLACE AT LIS. RODRIGUEZ PATENT AND DRAINING SEDIMENTED URINE. NO OUTPUT IN OSTOMY. FAMILY HAS REQUESTED TO SPEAK WITH DR. SANCHEZ ABOUT FURTHER PLAN OF CARE. MESSAGE LEFT W/ DR. SANCHEZ'S OFFICE. PALLIATIVE CARE CONSULTED WITH PATIENT AND FAMILY TODAY. REPORT GIVEN TO RN ASSUMING CARE OF PATIENT.
--- NOTE | 2019-04-26 17:07 | NUR ---
SHIFT SUMMARY SINCE ASSUMING CARE, PT DOING WELL. DR. SANCHEZ DID COME IN AND MANIPULATE NGT AND NOW OUTPUT IS COMING OUT AND TO LIS. SOAP SUDS ENEMA GIVEN TO PT AND PT GITA WELL. TPN STILL INFUSING PER ORDERS. RODRIGUEZ WITH THICK YELLOW URINE. PT ALERT AND ORIENTED, BUT SPEECH IS GARBLED R/T TO PARKINSONS. HEEL PROTECTORS PLACED TO HEELS FOR PROTECTION AND COCCYX ALSO HAS A PROTECTIVE MEPILEX IN PLACE. FENTANYL 25MCG GIVEN X1 FOR PAIN. PLAN IS FOR PT TO HAVE A SMALL BOWEL SERIES TOMORROW. PALLIATIVE CARE IN TODAY TO SEE PT. FAMILY MEMBER AT BEDSIDE FOR SUPPORT. BED ALARM IN PLACE FOR SAFETY. CALL LIGHT WITHIN REACH.
--- NOTE | 2019-04-26 18:30 | NUR ---
Met with patient and his daughter in room. Review of pt symptoms with patient. He denies headache, vision a little worse wearing daughters glasses, he always has ringing in ears he has for years. no mouth soreness, some sore throat and slight difficulty swallowing. feels tighness with breathing. Has bloated aching and spasm pain in stomach and bladder area. 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 Pt has been walking until recently. Daughter relays that since they moved out of their home its been more difficult to manage his care. She relays facility fears him falling and does not encourage walking. Daughter very distraught and showing caregiver stress. She is on FMLA and states her sisters do not help. She states her father and mother are stressed from change in life style. They are also grieving the loss of role. The patient was very active in maintaining their family mu-ism and an active member and that missing social structure is a great loss. 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 Review of his medications and outpatient medical care. Daughter states that he is not getting some of his parkinsons medications consistantly. He has not seen a neurologist or GI physician in some time. She was asking about changing his bowel medications. Advised her that must be done very very carefully with his history. she states CBD use is helping. She struggling with DNR status but has accepted it. She expressed anticipatory stress. She is upset that last admit they discussed hospice. Supportive conversation acknowledging that they are not there. Went on to discuss a half-way plan with daughter. Did not let her waver off the subject. Presented that eventually they will have to make some decisions. Suggested strategies of when based on suffering. We the reviewed some outpatient activities and strategies for quality of life. Reviewed his sleep hygiene and daughter states it is getting worse. She knows he is frustrated by inactivity and lack of mental stimulation. Suggested ask PT to set him ups with a sitting foot pedals and he do it daily in front of a window or outside when he can. Suggested audible books or online courses for him to listen to instead of TV. May want to use these and night and let him sleep some during the day. Reviewed his sleep rythms and not forcing him to sleep when his sleeps. Briefly reviewed some of the discomfort of IV nutrition and hydration. Reviewed viseral and spasmotic complex pain. Suggested she take him to neurologist in [place] if she wants to continue care. The goal for this suggestion is to help them accept staging of parkinsons and adjust goals of care. Attemtped to engage patient in as much of conversation as possible so daughter could see his responses. Dr. Marley in to see patient for NG tube as not draining. Updated Dr. Marley on conversation with patient and daughter. Pt daughter stated if surgery offered they would do it. Was blunt with her on more careful consideration of his tolerance of surgery and recovery and relayed probably not an option. Pt displays great love for his daughter and allows her to manage his needs. Will attempt to her support for acceptance of his disease progression.
--- NOTE | 2019-04-27 05:48 | NUR ---
PATIENT SLEEPING. REFUSED PATIENT TO BE REPOSITIONED AT THIS TIME.
[2019-04-27 06:09] LABS: Magnesium, Blood 2.5 mg/dL (1.6-2.4); Phosphorus, Blood 2.5 mg/dL (2.5-4.9); Triglycerides 96 mg/dL (30-160)
--- NOTE | 2019-04-27 06:25 | NUR ---
SHIFT SUMMARY: NO ACUTE CHANGES OVERNIGHT. VS STABLE. NPO WITH NG TUBE TO LIS. NO NG OUTPUT T/O SHIFT. RODRIGUEZ PATENT AND DRAINING. 25 MCG OF FENTANYL GIVEN FOR RESTLESNESS. GIVEN ORAL CARE FREQ. NO OUTPUT IN OSTOMY DESPITE BEING GIVEN ENEMA YESTERDAY. PLAN FOR SMALL BOWEL SERIES THIS MORNING. AT BEDSIDE.
--- NOTE | 2019-04-27 07:15 | NUR ---
pt sleeping asleep also in chair dr ryan by to see pt stated he will come back later
--- NOTE | 2019-04-27 08:56 | NUR ---
MEDS GIVEN SCHED
--- NOTE | 2019-04-27 10:00 | NUR ---
PT STILL ASLEEP WILL HOLD PO MED AT BEDSIDE STATED SHE WILL CALL WHEN HE WAKES UP STATED HE DID NOT FALL ASLEEP TILL AROUND 3-4 THIS AM
--- NOTE | 2019-04-27 13:40 | NUR ---
PT BACK FROM 1ST PART OF SMALL BOWEL REPORTING ABD PAIN 50 MCG FENT GIVEN
--- NOTE | 2019-04-27 13:57 | NUR ---
DR POWELL BY TO SEE PT BACK FROM SMALL BOWEL SERIES
--- NOTE | 2019-04-27 15:03 | NUR ---
1 X DOSE OF 50 MCG FENT GIVEN PER DR POWELL PT STILL HAVE SEVERE ABD PAIN R.T NGT UNABLE TO ATTACH TO SX DUE TO TEST PRN MOUTH CARE PER DAUGHTER REQ ATIVAN DR POWELL OK'D FENT
[2019-04-28 04:35] LABS: BASOPHILS ABSOLUTE AUTO 0.05 K/mm3 (0.00-0.23); BASOPHILS PERCENT AUTO 1 % (0-2); EOSINOPHILS ABSOLUTE AUTO 0.08 K/mm3 (0.00-0.68); EOSINOPHILS PERCENT AUTO 1 % (0-6); Hematocrit 39.2 % (37.0-53.0); Hemoglobin 12.5 g/dL (13.5-17.5); IMMATURE GRAN ABSOLUTE AUTO 0.03 K/mm3 (0.00-0.10); IMMATURE GRAN PERCENT AUTO 0 % (0-1); LYMPHOCYTES ABSOLUTE AUTO 0.81 K/mm3 (0.84-5.20); LYMPHOCYTES PERCENT AUTO 9 % (21-46); MONOCYTES ABSOLUTE AUTO 0.63 K/mm3 (0.16-1.47); MONOCYTES PERCENT AUTO 7 % (4-13); Mean Corpuscular HGB 31.3 pg (26.0-34.0); Mean Corpuscular HGB Conc 31.9 g/dL (31.5-36.5); Mean Platelet Volume 9.8 fL (9.1-12.4); NEUTROPHILS ABSOLUTE AUTO 7.25 K/mm3 (1.96-9.15); NEUTROPHILS PERCENT AUTO 82 % (41-73); Platelet Count 189 K/mm3 (150-400); RDW Coefficient Variation 13.2 % (11.7-14.2); RDW Standard Deviation 47.3 fL (35.1-46.3); White Blood Cell Count 8.85 K/mm3 (4.00-11.30)
[2019-04-28 04:36] LABS: Mean Corpuscular Volume 98 fL (80-100)
[2019-04-28 04:54] LABS: Anion Gap 1 mmol/L (6-16); Blood Urea Nitrogen 31 mg/dL (8-24); Bun/Creatinine Ratio 36.9 (12.0-20.0); CO2, Blood 34 mmol/L (21-32); Calcium, Blood 9.2 mg/dL (8.5-10.1); Chloride, Blood 116 mmol/L (98-108); Creatinine, Blood 0.84 mg/dL (0.60-1.20); Glomerular Filtration Rate >60 (60-); Glucose, Blood 102 mg/dL (70-99); Magnesium, Blood 2.5 mg/dL (1.6-2.4); Phosphorus, Blood 2.3 mg/dL (2.5-4.9); Potassium, Blood 3.6 mmol/L (3.5-5.5); Sodium, Blood 151 mmol/L (136-145)
--- NOTE | 2019-04-28 07:48 | NUR ---
SUMMARY 2ND PORTION OF SB FOLLOW THROUGH WAS COMPLETED. OSTOMY HAS STARTED TO PRODUCE BROWN LIQUID STOOL. APPROX 2600 ML OF DARK BROWN LIQUID STOOL WAS NOTED. OSTOMY APPLIANCE WAS CHANGED. NG TO LOW INTERMITTENT SUCTION, 350 ML DARK GREEN DRAINAGE NOTED IN CANISTER. RODRIGUEZ BECAME CLOGGED DUE TO EXCESSIVE AMOUNTS OF SEDIMENT, IRRIGATION WAS ATTEMPTED WITH NO SUCCESS. A NEW 16 F RODRIGUEZ WAS PLACED. 500 ML OF CLEAR, YELLOW URINE NOTED IN BAG RIGHT AWAY. RODRIGUEZ REMAINS PATENT, CLAMPED TO BED BELOW BLADDER. PAIN MEDICATED PER EMAR PRN. STAYED AT THE BEDSIDE THROUGH THE NIGHT AND ASSISTS WITH CARE WHEN POSSIBLE. CALL LIGHT IN REACH, REPORT WAS GIVEN TO DAY RN.
--- NOTE | 2019-04-28 08:51 | NUR ---
PT LEFT UNIT FOR IMAGING AND BACK AT 0830
[2019-04-28 15:56] LABS: Phosphorus, Blood 2.6 mg/dL (2.5-4.9)
--- NOTE | 2019-04-28 19:32 | NUR ---
SUMMARY: NO ACUTE CHANGE THIS SHIFT. PT HAS SLEPT MOST OF THE DAY, VSS, ANSWERS SOME QUESTIONS APPROPRIATLY. ABD IS LESS DISTENDED PER PT DAUGHTER. OSTOMY DRAINED A TOTAL OF 400ML AND NGT 1000ML, LIS. NGT IRRIGATED AT SHIFT START AND HAS DRAINED WELL SINCE. T MEDICATED FOR PAIN X1 OTHERWISE DENIED. RODRIGUEZ DRAINING. PT DAUGHTER AT BEDSIDE. NO ACUTE SAFETY CONCERNS AT THIS TIME.
[2019-04-29 04:33] LABS: Albumin, Blood 2.6 g/dL (3.4-5.0); Anion Gap 0 mmol/L (6-16); Blood Urea Nitrogen 23 mg/dL (8-24); Bun/Creatinine Ratio 28.9 (12.0-20.0); CO2, Blood 35 mmol/L (21-32); Calcium, Blood 9.2 mg/dL (8.5-10.1); Chloride, Blood 116 mmol/L (98-108); Glomerular Filtration Rate >60 (60-); Glucose, Blood 104 mg/dL (70-99); Phosphorus, Blood 2.9 mg/dL (2.5-4.9); Potassium, Blood 3.7 mmol/L (3.5-5.5); Sodium, Blood 151 mmol/L (136-145)
--- NOTE | 2019-04-29 07:05 | NUR ---
PATIENT WAS MORE ACTIVE THIS SHIFT PER SPOUSE. GAVE MEDS PER EMAR. SUCTIONED PATIENT X1; DID ORAL CARE AND MOUTH CARE SEVERAL TIMES. DISSOLVED ORAL MEDS IN A SMALL AMOUNT OF WATER AN USED SWABS TO APPLY, ALL TUBES REMAIN IN PLACE AT SHIFT'S END. OSTOMY HAD NO REAL OUTPUT DURING ROSA MARIA SHIFT BUT PATIENT IS NPO, ONLY RECEIVING TPN..
--- NOTE | 2019-04-29 14:35 | NUR ---
NGT DC'D AT 1415 PER ORDER, PT TOLERATED WELL
--- NOTE | 2019-04-29 18:32 | NUR ---
SHIFT SUMMARY: NO ACUTE CHANGE TODAY. VSS, PT ORIENTED TO SELF, AND FOLLOWS DIRECTIONS. PT HAS DENIED ABD PAIN TODAY, ABD IS ONLY SLIGHTLY DISTENDED. MINIMAL OUT OF OSTOMY TODAY, NOT EMPTIED. TPN CONTINUES TO INFUSE AND DEXTROSE 5% HUNG. RODRIGUEZ DRAINING WELL, NGT DC'D, NOW ON CLEAR LIQ DIET. TOLERATED THICKENED WATER, NO N/V THIS SHIFT. PT SLEPT ON AND OFF TODAY AWAKENS TO VOICE. FAMILY AT BEDSIDE CONSISTANTLY. WILL CTM AND REPORT TO LOREN VALLE.
--- NOTE | 2019-04-29 21:06 | NUR ---
PT AND SPOUCE DID NOT WISH FOR PT TO BE REPOSITIONED AT THIS TIME. WISH TO WAIT TILL AFTER NIGHT MEDS ARE GIVEN.
[2019-04-30 06:52] LABS: Albumin, Blood 2.8 g/dL (3.4-5.0); Anion Gap 4 mmol/L (6-16); Blood Urea Nitrogen 21 mg/dL (8-24); Bun/Creatinine Ratio 26.4 (12.0-20.0); CO2, Blood 31 mmol/L (21-32); Calcium, Blood 9.3 mg/dL (8.5-10.1); Chloride, Blood 112 mmol/L (98-108); Creatinine, Blood 0.79 mg/dL (0.60-1.20); Glomerular Filtration Rate >60 (60-); Glucose, Blood 96 mg/dL (70-99); Phosphorus, Blood 2.7 mg/dL (2.5-4.9); Potassium, Blood 3.7 mmol/L (3.5-5.5); Sodium, Blood 147 mmol/L (136-145)
--- NOTE | 2019-04-30 07:23 | NUR ---
PT HAD NO ACUTE CHANGES T/O NIGHT; VSS. PT APPEARED TO SLEEP RESTFULLY T/O NIGHT. OSTOMY PUTTING OUT SM AMT LIQ STOOL. PT ASSISTED W/THICKENED LIQ JUICE. ORAL SX COMPLETED AFTER PO FLUIDS. HOB ELEVATED, PT REPOSITIONED GITA T/O NIGHT. CPN CONT PER ORDERS. AT BEDSIDE, DAUGHTER IN THIS AM. REP GIVEN TO DAY RN.
--- NOTE | 2019-04-30 17:35 | NUR ---
SHIFT SUMMARY PT A&OX4, VSS, RA, OSTOMY PASSING FLATUS AND PUT OUT 80 MLS THIS SHIFT. GITA FULL LIQUID PO INTAKE, ASPIRATION PRECAUTIONS, SUCTION PRN. REPOSITION PRN. PICC LINE: TPN @ 63 MLS/HR. IVF @ 100 MLS/HR. CHRONIC RODRIGUEZ PATENT & DRAINING YELLOW URINE, STAT LOCK ON, OFF FLOOR. FAMILY AT BEDSIDE. WCTM & TX PER EMAR UNTIL REPORT GIVEN TO ONCOMING LOREN RN.
--- NOTE | 2019-05-01 07:20 | NUR ---
SUMMARY: NO ACUTE CHANGES THIS SHIFT. PT APPEARS ALERT AND PLEASANT. COLOSTOMY OUTPUTING LOTS OF FLATUS AND LIQUID DARK BROWN STOOL. PT TOLERATING THICKENED FULL LIQUID DIET. VSS, AFEBRILE.
[2019-05-01 09:01] LABS: Albumin, Blood 2.5 g/dL (3.4-5.0); Anion Gap 5 mmol/L (6-16); Blood Urea Nitrogen 20 mg/dL (8-24); Bun/Creatinine Ratio 27.5 (12.0-20.0); CO2, Blood 29 mmol/L (21-32); Calcium, Blood 8.9 mg/dL (8.5-10.1); Chloride, Blood 108 mmol/L (98-108); Creatinine, Blood 0.73 mg/dL (0.60-1.20); Glomerular Filtration Rate >60 (60-); Glucose, Blood 97 mg/dL (70-99); Phosphorus, Blood 2.9 mg/dL (2.5-4.9); Potassium, Blood 3.9 mmol/L (3.5-5.5); Sodium, Blood 142 mmol/L (136-145)
--- NOTE | 2019-05-01 19:21 | NUR ---
SHIFT SUMMARY PT A&OX4, VSS. GITA PO. NO SIGNS OF PAIN. GITA FULL LIQ DIET; ASSISTS W/FEEDING PATIENT. RODRIGUEZ PATENT & DRAINING YELLOW URINE. DIETITIAN MALIK HUNT CONSULTED W/ AND PROVIDED EDU ON DC PLANNING RE PROTEIN INTAKE. PHYSICAL THERAPY EVAL'D PT AND PT WAS ABLE TO STAND & TRANSFER AT BASELINE. GAVE REPORT TO DC PLANNING R/T POSSIBLE DISCHARGE TO [facility] TOMORROW. REPORT GIVEN TO SUKHDEV VALLE.
--- NOTE | 2019-05-02 08:25 | NUR ---
pt sleeping woke pt up assisted oob to chair for breakfast pt has flatus and small amt of stool will cont to monitor after pt eats breakfast plan [facility]
--- NOTE | 2019-05-02 10:35 | NUR ---
dr segura by to see pt
--- NOTE | 2019-05-02 12:38 | NUR ---
FAMILY TALKING WITH DIETARY
--- NOTE | 2019-05-02 13:38 | NUR ---
PT AND DAUGHTER VISITING
--- NOTE | 2019-05-02 14:10 | NUR ---
MEDS GIVEN SCHED PT ASSISTED TO GET PJ PANTS ON GAVE FAMILY SOME MEPLIX PADS FOR REDNESS FROM SITTING UP IN CHAIR PT HELPED INTO WC REPORTS EARLIER CALLED TO JOSE M HEL[facility] NO ACUTE CHANGES IN COND WC TRANSPORT
== END 2019-05-02 14:15 | disposition home or self-care (01) | DRG 389 ==
LOC: ER 03:38 → MEDS 06:33 → SURS 08:59
PROVIDERS: Emergency Medicine; Internal Medicine; Surgery; ADMIT Internal Medicine
PROC: 02HV33Z Insertion of Infusion Device into Superior Vena Cava, Percutaneous Approach (ICD-10-PCS; principal; 2019-04-25)
DX: K56.50 Intestinal adhesions [bands], unspecified as to partial versus complete obstruction (principal); T83.511A Infection and inflammatory reaction due to indwelling urethral catheter, initial encounter; E87.0 Hyperosmolality and hypernatremia; E44.1 Mild protein-calorie malnutrition; Z68.1 Body mass index [BMI] 19.9 or less, adult; Z93.3 Colostomy status; Z79.82 Long term (current) use of aspirin; N40.0 Benign prostatic hyperplasia without lower urinary tract symptoms; G47.33 Obstructive sleep apnea (adult) (pediatric); G20 Parkinson's disease; F02.80 Dementia in other diseases classified elsewhere, unspecified severity, without behavioral disturbance, psychotic disturbance, mood disturbance, and anxiety; Z66 Do not resuscitate; K21.9 Gastro-esophageal reflux disease without esophagitis; G47.00 Insomnia, unspecified; B96.4 Proteus (mirabilis) (morganii) as the cause of diseases classified elsewhere; E83.39 Other disorders of phosphorus metabolism; F41.8 Other specified anxiety disorders; N40.1 Benign prostatic hyperplasia with lower urinary tract symptoms; N31.9 Neuromuscular dysfunction of bladder, unspecified
CPT/HCPCS: 31720; 36415; 71045; 74019; 74177; 74250; 80048; 80053; 80069; 81001; 82947; 83690; 83735; 84100; 84295; 84478; 85025; 85027; 87070; 87077; 87086; 87186; 87205; 93005; 93010; 94760; 96361; 96374-59; 96375; 97110; 97162; 97166; 97530; 97535; 99285-25; A9270; J0696; J1170; J1650; J1956; J2405; J3010; J3411; J7030; J7070; J7120; Q0177; Q9967

== ENCOUNTER → 2019-06-15 | Outpatient (CLI) | payer OTHER ==
[~2019-06-15] MED LIST changes: +HYDPAM25 PO
[2019-06-18 12:58] LABS: Bilirubin, Urine Neg (Neg); Blood, Urine 2+ (Neg); Glucose Qualitative, Urine Neg (Neg); Ketones, Urine 1+ (Neg); Leukocyte Esterase, Urine 3+ (Neg); Nitrite, Urine Pos (Neg); Protein, Urine 3+ (Neg); Urobilinogen, Urine NORM (Normal)
[2019-06-18 13:19] LABS: Specific Gravity, Urine 1.015 (1.003-1.022)
[2019-06-18 13:26] LABS: Appearance, Urine Turbid (Clear); Color, Urine Brown (P-Yellow)
[2019-06-18 13:28] LABS: Amorphous Mod ({null, 0-Heavy}); Bacteria Many /hpf
[2019-06-18 13:29] LABS: White Blood Cells, Urine 25-50 /hpf (0-5)
[2019-06-18 13:30] LABS: Squamous Epithelial Cells Not Seen /hpf (Few); Triple Phosphate Crystals Mod /hpf
== END | disposition home or self-care (01) ==
LOC: LAB SHORT 17:27 → LAB HH 17:27
DX: N39.0 Urinary tract infection, site not specified (principal)
CPT/HCPCS: 81001; 87077; 87086; 87186

== ENCOUNTER → 2019-07-10 | Outpatient (CLI) | payer OTHER ==
[2019-07-10 18:46] LABS: Bilirubin, Urine Neg (Neg); Blood, Urine 5+ (Neg); Glucose Qualitative, Urine Neg (Neg); Ketones, Urine 1+ (Neg); Leukocyte Esterase, Urine 3+ (Neg); Nitrite, Urine Pos (Neg); Protein, Urine 3+ (Neg); Specific Gravity, Urine 1.015 (1.003-1.022); Urobilinogen, Urine NORM (Normal)
[2019-07-10 19:06] LABS: Appearance, Urine Cloudy (Clear); Color, Urine Yellow (P-Yellow)
[2019-07-10 19:10] LABS: Red Blood Cells, Urine TNTC /hpf (0-2); Triple Phosphate Crystals Mod /hpf; White Blood Cells, Urine TNTC /hpf (0-5)
[2019-07-10 19:11] LABS: Bacteria Many /hpf; Squamous Epithelial Cells Not Seen /hpf (Few)
== END | disposition home or self-care (01) ==
LOC: LAB SHORT 18:13 → LAB 18:13
DX: Z79.01 Long term (current) use of anticoagulants (principal); Z51.81 Encounter for therapeutic drug level monitoring; N39.0 Urinary tract infection, site not specified
CPT/HCPCS: 81001; 87077; 87086; 87186

== ENCOUNTER 2019-09-05 10:43 | Inpatient (IN) | payer OTHER ==
[~2019-09-05] VITALS: Ht 177.8 cm; Wt 69.7 kg
[~2019-09-05 10:43] MED LIST changes: +CARBLEV25 SL; -CHOL10002 PO; +Cephalexin250 MG/5 M PO; +HYDHCL25 PO; -HYDPAM25 PO; +POLYETHYLENE G500 G1 PO; +VITAMIN D31000 UNI2 PO
[2019-09-05 11:17] LABS: BASOPHILS ABSOLUTE AUTO 0.03 K/mm3 (0.00-0.23); BASOPHILS PERCENT AUTO 0 % (0-2); EOSINOPHILS PERCENT AUTO 0 % (0-6); Hematocrit 33.7 % (37.0-53.0); Hemoglobin 11.3 g/dL (13.5-17.5); IMMATURE GRAN PERCENT AUTO 1 % (0-1); LYMPHOCYTES ABSOLUTE AUTO 0.24 K/mm3 (0.84-5.20); LYMPHOCYTES PERCENT AUTO 1 % (21-46); MONOCYTES ABSOLUTE AUTO 0.86 K/mm3 (0.16-1.47); MONOCYTES PERCENT AUTO 5 % (4-13); Mean Corpuscular HGB 31.7 pg (26.0-34.0); Mean Corpuscular HGB Conc 33.5 g/dL (31.5-36.5); Mean Corpuscular Volume 95 fL (80-100); Mean Platelet Volume 10.4 fL (9.1-12.4); NEUTROPHILS ABSOLUTE AUTO 16.63 K/mm3 (1.96-9.15); NEUTROPHILS PERCENT AUTO 93 % (41-73); Platelet Count 133 K/mm3 (150-400); RDW Coefficient Variation 13.2 % (11.7-14.2); RDW Standard Deviation 45.7 fL (35.1-46.3); Red Blood Cell Count 3.56 M/mm3 (4.30-5.90); White Blood Cell Count 17.96 K/mm3 (4.00-11.30)
[2019-09-05 11:25] LABS: International Normalized Ratio 1.08; Prothrombin Time Results 11.4 Sec (9.7-11.5)
[2019-09-05 11:28] LABS: Albumin, Blood 2.6 g/dL (3.4-5.0); Albumin/Globulin Ratio 0.9 (0.8-1.8); Bilirubin, Total 0.6 mg/dL (0.1-1.0); Bun/Creatinine Ratio 17.3 (12.0-20.0); Calcium, Blood 8.8 mg/dL (8.5-10.1); Creatinine, Blood 1.79 mg/dL (0.60-1.20); Potassium, Blood 4.4 mmol/L (3.5-5.5); Total Protein, Blood 5.6 g/dL (6.4-8.2)
[2019-09-05] MEDS ORDERED: CHILDREN'S100 MG/51 PO (12:36)
[2019-09-05] MEDS ORDERED: Pedi-Dri 100,0060 GM TOP (12:37)
[2019-09-05] MEDS ORDERED: Pyridium100 MG PO (12:38)
[2019-09-05] MEDS ORDERED: Baza Protect C142 GM TOP (12:39)
[2019-09-05 12:42] LABS: Source, Urine Catheter
[2019-09-05 12:46] LABS: Blood, Urine 5+ (Neg); Glucose Qualitative, Urine Neg (Neg); Ketones, Urine 1+ (Neg); Leukocyte Esterase, Urine 3+ (Neg); Nitrite, Urine Pos (Neg); Protein, Urine 3+ (Neg); Specific Gravity, Urine 1.005 (1.003-1.022); Urobilinogen, Urine NORM (Normal)
[2019-09-05 13:21] LABS: Bilirubin, Urine 1+ (Neg)
[2019-09-05 13:22] LABS: Appearance, Urine Hazy (Clear); Bacteria Mod /hpf; Color, Urine Amber (P-Yellow); Squamous Epithelial Cells Not Seen /hpf (Few); White Blood Cells, Urine 25-50 /hpf (0-5)
--- NOTE | 2019-09-05 14:00 | NUR ---
ARRIVAL TO UNIT Assumed care of pt upon arrival to unit at 1400 from ED. Pt arrived accompanied by Abel VALLE. Telephone report received prior to arrival. Pt transferred from ED gurney to ICU bed using slider sheet. Pt arrived with NS infusing at 500 mL/hr and levophed at 5 mcg/min into right IJ central line. SBP 120s. Pt arrived wearing 2 LPM NC. Lungs clear, with dim bases. SpO2 90% or greater. Pt has chronic beyer catheter draining dark, tea colored urine. 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 Pt confused, asking for his . Daughter at bedside attempts to reorient pt. Pt unreceptive.
--- NOTE | 2019-09-05 15:36 | NUR ---
Met with Pt and family in Pt's room. Pt denies pain at this time. Currently having an ultrasound performed. Discussed with Pt's daughter Kaleigh outside of Pt's room and discussed POLST. Listened as Kaleigh expresses wishes for Pt. Kaleigh also reports Pt's other daughter Medina is BG. Kaleigh also reports Pt's has dementia. Educated on life sustaining measures and sections of POLST to be completed. Instruced Kaleigh that Medina PEDERSON will have to be contacted in order to have POLST completed. Kaleigh attempts to contact Medina with nos success. Left Palliative Care contact information with Kaleigh and instructed to call when Medina is contacted. No other conerns reported at this time. Spoke with bedside nurse Karly and discussed case. Attempted to contact Medina. Left message on voicemail with request of return phone call. Medina's number [phone] Palliative Care will remain available
--- NOTE | 2019-09-05 16:22 | NUR ---
Met with Pt's daughter Kaleigh in [address]. Conversation is taking place with finesse Dietrich. Discussed further regarding code status, decision maker, and POLST. Other daughter Medina calls Kaleigh and this RN was able to hear conversation. Medina has financial POA not medical POA. Further discusion was made with Pt's Tara. Evaluated Tara's appropriatness. At the time of visit Tara is A&OX4 and understands meaning of life sustaining measures including risk factors. Tara signs POLST with Pt wishes to be DNR/DNI and Limited Treatment. Daughter Kaleigh is agreeable. No other concerns reported at this time. Bedside nurse Karly calls [employer] Supervisor and recieves order to change code status to DNR. Karly will pass report with request for hospitalist to signs POLST tomorrow during rounds. Palliative Care will remain available.
[2019-09-05 17:36] LABS: Source, Urine Catheter
[2019-09-05 17:52] LABS: Bilirubin, Urine Neg (Neg); Blood, Urine 5+ (Neg); Glucose Qualitative, Urine Neg (Neg); Ketones, Urine Neg (Neg); Leukocyte Esterase, Urine 3+ (Neg); Nitrite, Urine Neg (Neg); Protein, Urine 2+ (Neg); Urobilinogen, Urine NORM (Normal)
[2019-09-05 18:18] LABS: Appearance, Urine Hazy (Clear); Color, Urine Yellow (P-Yellow)
[2019-09-05 18:20] LABS: Red Blood Cells, Urine 25-50 /hpf (0-2)
[2019-09-05 18:21] LABS: Amorphous Mod (0-Heavy); Bacteria Mod /hpf; Squamous Epithelial Cells Not Seen /hpf (Few); White Blood Cells, Urine 25-50 /hpf (0-5)
--- NOTE | 2019-09-05 18:44 | NUR ---
SUMMARY Per daughter, pt typically eats vegetarian puree diet with nectar thick liquids. Pt also takes meds crushed with applesauce. Also states that pt requires miralax, considering that pt's stool is formed and pellet-like. States that pt is highly prone to SBO and requires stool softeners. Call placed to Duane MUÑOZ, admitting hospitalist, to notify. New orders provided. Pt alert enough to take medications, but quickly falls back asleep. Pt too lethargic for dinner. Ostomy emptied and cleaned. 22 FR beyer removed and replaced with 18 FR beyer. Urinalysis sent per protocol. Pt has chronic beyer catheter. Pt's daughter states that pt also has tendency to clog beyer due to sediment in urine, and that is why he uses a 22 FR. States she is okay with placement of 18 FR catheter today. Pt remains on 2 LPM NC. Currently on 2 mcg/min of levophed. Attempted to titrate levophed off, unsuccessfully.
--- NOTE | 2019-09-05 20:00 | NUR ---
ASSUMED CARE OF PT AT 1915. REPORT RECEIVED AT BEDSIDE. PT PRESENTS IN BED. ALERT AND QUESTIONABLE ORIENTATION. PT'S IN ROOM. PT MAKES EYE CONTACT AND VERBALLY SPEAKS TO NURSE ON UNRELATED TOPICS. PT IN NO APPARENT DISTRESS. PT ON LEVOPHED AT 2 MCG'S. MAP MAINTAINING > 60. WILL REVIEW CHART AND PLAN OF CARE FOR THIS PT.
--- NOTE | 2019-09-06 | NUR ---
PT'S ROOMS IN FOR THE NIGHT. ATTENTIVE TO PT'S NEEDS. PT WAS ABLE TO TAKE HIS HS MEDS WITH APPLESAUCE. MEDICATIONS THAT CAN'T BE CRUSHED WERE DONE WHOLE IN APPLESAUCE. PT WAS ABLE TO SWALLOW PILLS THIS WAY. LEVOPHED WAS INCREASED TO 3 MCG'S SECONDARY TO BLOOD PRESSURES DROPPING. WILL CONTINUE TO MONITOR PT.
[2019-09-06 05:59] LABS: Hematocrit 36.2 % (37.0-53.0); Hemoglobin 11.9 g/dL (13.5-17.5); Mean Corpuscular HGB 31.7 pg (26.0-34.0); Mean Corpuscular HGB Conc 32.9 g/dL (31.5-36.5); Mean Corpuscular Volume 97 fL (80-100); Mean Platelet Volume 10.1 fL (9.1-12.4); Platelet Count 97 K/mm3 (150-400); RDW Coefficient Variation 13.5 % (11.7-14.2); RDW Standard Deviation 47.9 fL (35.1-46.3); Red Blood Cell Count 3.75 M/mm3 (4.30-5.90); White Blood Cell Count 18.89 K/mm3 (4.00-11.30)
[2019-09-06 06:13] LABS: Albumin, Blood 2.3 g/dL (3.4-5.0); Albumin/Globulin Ratio 0.7 (0.8-1.8); Bilirubin, Total 0.4 mg/dL (0.1-1.0); Bun/Creatinine Ratio 18.1 (12.0-20.0); Calcium, Blood 8.4 mg/dL (8.5-10.1); Creatinine, Blood 1.6 mg/dL (0.60-1.20); Globulin, Blood 3.2 g/dL (2.2-4.0); Magnesium, Blood 1.8 mg/dL (1.6-2.4); Potassium, Blood 4.3 mmol/L (3.5-5.5); Total Protein, Blood 5.5 g/dL (6.4-8.2)
[2019-09-06 06:17] LABS: BAND PERCENT MAN 17 % (0-8); BASOPHILS PERCENT MAN 0 % (0-2); EOSINOPHILS PERCENT MAN 0 % (0-6); LYMPHOCYTES ABSOLUTE MAN 0.94 K/mm3 (0.84-5.20); LYMPHOCYTES PERCENT MAN 5 % (21-46); MONOCYTES ABSOLUTE MAN 0.37 K/mm3 (0.16-1.47); MONOCYTES PERCENT MAN 2 % (4-13); MYELOCYTE ABSOLUTE MAN 0.18 K/mm3 (0.00-0.00); MYELOCYTE PERCENT MAN 1 % (0-0); NEUTROPHILS ABSOLUTE MAN 17.37 K/mm3 (1.96-9.15); SEG NEUTROPHILS PERCENT MAN 75 % (41-73); TOTAL CELLS COUNTED 100
--- NOTE | 2019-09-06 06:30 | NUR ---
PT HAS RESTFUL NIGHT AT TIMES. DOES PICK AT LINES AND OCCASSIONALY WILL MESS WITH HIS CATHETER. DOES NOT MAKE ANY ATTEMPTS TO GET AHOLD OF CENTRAL LINES. LEVOPHED DRIP WAS INCREASED TO 3 MCG'S TO KEEP MAP > 60. PT DEMONSTRATES NO S/S PAIN OR DISTRESS. DOES TAKE NECTAR THICK FLUIDS AND MEDICATIONS IN APPLESAUCE. SOME CUING WAS NECESSARY. PT HAS HAD TEMP SPIKES TO 102.3 AND 102 REPECTEVILY. MEDICATED PT WITH 650 MG TYLENOL TWICE. PENDING RESULTS FROM SECOND DOSE. PT'S DAUGHTER CALLS FROM [place] FOR UPDATE. WILL CONTINUE TO MONITOR PT, AND WILL REPORT OFF TO ONCOMING RN.
--- NOTE | 2019-09-06 09:00 | NUR ---
INITIAL ASSESSMENT: PT DROWSY, RESPONDING TO VERBAL STIMULI, ABLE TO FOLLOW SOME COMMANDS. SPEECH IS GARBLED AND QUIET. LUNG SOUND CLEAR IN UPPER LOBES, DIMINISHED AT BASES, PT IS TAKING SHALLOW BREATHS. SATTING >90% 2L NC. PT IS IN SINUS RHYTHM WITH SOME PACS. BP 90-100S, HR IN THE 80S. BOWET TONES PRESENT. PT HAS COLOSTOMY AND PER REPORT HAS BEEN HAVING FORMED STOOL. PT HAS A CHRONIC RODRIGUEZ DRAINING DARK YELLOW URINE. PT HAS SOME DIFFICULTY SWALLOWING. IS ABLE TO TOLERATE THICKENED LIQUIDS AND APPLE SAUCE. PT IS ALSO ABLE TO SWALLOW PILLS WITH THICKENED LIQUIDS AND APPLE SAUCE. RIJ CENTRAL LINE IN PLACE. DRESSING IS CLEAN AND INTACT, CURRENTLY INFUSING. PT IS ON LEVOPHED 5 MCG. IS AT BEDSIDE. WILL CONTINUE TO MONITOR.
--- NOTE | 2019-09-06 15:21 | NUR ---
PT'S DAUGHTER AT BEDSIDE
--- NOTE | 2019-09-06 17:41 | NUR ---
SHIFT SUMMARY: PT ALERT AND ORIENTED TO FAMILY, SELF. FOLLOWS COMMANDS, SPEECH IS GARBLED AND SOFT. PT WAS FEBRILE AT BEGINNING OF SHIFT WITH TEMP CLIMBING UP TO 102F. CURRENT TEMP IS 97.2. PT SATTING >90% ON 2L NC. PT IN SR WITH PACS. SBP 90-100S HR 60-70. PT HAS A COLOSTOMY AND IS HAVING FORMED STOOL. PT HAS A CHRONIC RODRIGUEZ DRAINING DARK ORANGE URINE. PT FAMILY HAS COMPLAINED OF RECCURRENT UTIS, BLOOD CULTURES POSITIVE X 2. PROVIDER AWARE AND ID DOC CONSULTED. RIJ IN PLACE, CURRENTLY INFUSING LEVOPHED AT 3MCG/MIN. NO ACUTE CHANGES THIS SHIFT. PT CURRENTLY RESTING. AT BEDSIDE.
--- NOTE | 2019-09-06 20:00 | NUR ---
ASSUMED CARE OF PT AT 1915. REPORT RECEIVED. PT PRESENTS IN BED. HAS EYES CLOSED. DOES AWAKEN TO TACTILE STIMULI. REMAINS CONFUSED, BUT PLEASANT WITH CARE AND ASSESSMENT. PT'S IN ROOM. ATTENTIVE TO PT'S NEEDS. NO S/S DISTRESS. WILL REVIEW CHART AND PLAN OF CARE FOR THIS PT.
--- NOTE | 2019-09-06 23:00 | NUR ---
PT ABLE TO TAKE HIS MEDICATIONS, CRUSHED IN APPLESAUCE. ALL MED VERIFIED BY PHARMACY CRUSHABLE. PT ABLE TO TAKE NECTAR THICK FLUIDS WITHOUT COUGH. HAVE BEEN WORKING WITH PT ON SAFE SWALLOW TECHNIQUES IN [place] WITH SWALLOW. PT NEEDS MUCH REINFORCEMENT IN TEACHING. PT'S IS AWARE OF TECHNIQUE. TEACHING CONTINUES. PT HAS BEEN AFEBRILE THROUGH THIS EVENING. WILL CONTINUE TO MONITOR PT.
--- NOTE | 2019-09-07 03:00 | NUR ---
PT HAS REMAINED ON 3 MCG LEVOPHED DRIP. HAVE NOT BEEN ABLE TO TITRATE RATE. PT REMAINS IN BED THOUGH MAKES SOME ATTEMPTS TO GET OUT OF BED. NEEDS TO BE REMINDED NOT TO GET OUT OF BED FOR HIS SAFETY.
[2019-09-07 04:55] LABS: BASOPHILS ABSOLUTE AUTO 0.04 K/mm3 (0.00-0.23); BASOPHILS PERCENT AUTO 0 % (0-2); EOSINOPHILS ABSOLUTE AUTO 0.08 K/mm3 (0.00-0.68); EOSINOPHILS PERCENT AUTO 1 % (0-6); Hematocrit 34.6 % (37.0-53.0); Hemoglobin 11.6 g/dL (13.5-17.5); IMMATURE GRAN ABSOLUTE AUTO 0.05 K/mm3 (0.00-0.10); IMMATURE GRAN PERCENT AUTO 0 % (0-1); LYMPHOCYTES ABSOLUTE AUTO 0.47 K/mm3 (0.84-5.20); LYMPHOCYTES PERCENT AUTO 4 % (21-46); MONOCYTES ABSOLUTE AUTO 0.42 K/mm3 (0.16-1.47); MONOCYTES PERCENT AUTO 4 % (4-13); Mean Corpuscular HGB 31.7 pg (26.0-34.0); Mean Corpuscular HGB Conc 33.5 g/dL (31.5-36.5); Mean Corpuscular Volume 95 fL (80-100); Mean Platelet Volume 10.7 fL (9.1-12.4); NEUTROPHILS ABSOLUTE AUTO 11.05 K/mm3 (1.96-9.15); NEUTROPHILS PERCENT AUTO 91 % (41-73); Platelet Count 72 K/mm3 (150-400); RDW Coefficient Variation 13.5 % (11.7-14.2); RDW Standard Deviation 46.7 fL (35.1-46.3); Red Blood Cell Count 3.66 M/mm3 (4.30-5.90); White Blood Cell Count 12.11 K/mm3 (4.00-11.30)
[2019-09-07 05:11] LABS: Alanine Aminotransfer (ALT/SGP 14 U/L (12-78); Albumin, Blood 2.4 g/dL (3.4-5.0); Albumin/Globulin Ratio 0.8 (0.8-1.8); Alk Phos 59 U/L (50-136); Anion Gap 6 mmol/L (6-16); Aspartate Aminotrans (AST/SGOT 20 U/L (12-37); Bilirubin, Total 0.3 mg/dL (0.1-1.0); Blood Urea Nitrogen 22 mg/dL (8-24); Bun/Creatinine Ratio 20.2 (12.0-20.0); CO2, Blood 25 mmol/L (21-32); Calcium, Blood 8.8 mg/dL (8.5-10.1); Chloride, Blood 112 mmol/L (98-108); Creatinine, Blood 1.09 mg/dL (0.60-1.20); Globulin, Blood 3.1 g/dL (2.2-4.0); Glomerular Filtration Rate >60 (60-); Glucose, Blood 103 mg/dL (70-99); Potassium, Blood 4.1 mmol/L (3.5-5.5); Sodium, Blood 143 mmol/L (136-145); Total Protein, Blood 5.5 g/dL (6.4-8.2)
--- NOTE | 2019-09-07 06:28 | NUR ---
HAVE WORKED WITH PT ON SAFE SWALLOW. IS ABLE TO TAKE HIS MEDS CRUSHED IN APPLESAUCE. NO COUGH WITH SWALLOW. SPENDS THE NIGHT WITH PT. SHE IS VERY ATTENTIVE TO PT'S NEEDS. CONTINUES ON 3 MCG LEVOPHED TO MAINTAIN MAP > 60. HAVE NOT BEEN ABLE TO TITRATE LEVOPHED LOWER. WILL CONTINUE TO MONITOR PT, AND WILL REPORT OFF TO ONCOMING RN.
--- NOTE | 2019-09-07 08:41 | NUR ---
MD VISIT DR. JESSICA IN.
--- NOTE | 2019-09-07 08:53 | NUR ---
TITRATED LEVOPHED TO 1 MCG/MIN, AND BACK UP TO 3 MCG/MIN.
--- NOTE | 2019-09-07 09:25 | NUR ---
CAREGIVER WITH [facility] UPDATED AFTER PERMISSION OBTAINED FROM
--- NOTE | 2019-09-07 09:46 | NUR ---
PATIENT COUGHED AFTER FIRST BITE OF PUREED BREAKFAST. PLACED NPO AND SPEECH THERAPY EVAL ORDERED
--- NOTE | 2019-09-07 10:37 | NUR ---
SPEECH THERAPIST CLEARED PATIENT WITH 2ND BITE OF FOOD AND WITH PATIENT AT 90 DEGREE ANGLE
--- NOTE | 2019-09-07 10:52 | NUR ---
MD VISIT DR. JEREZ IN.
--- NOTE | 2019-09-07 16:39 | NUR ---
DAUGHTER, DAYANA AT BEDSIDE REPORTS PATIENT DOES NOT TOLERATE PAS STOCKINGS WELL WITH HIS PARKINSON'S AND IS ASKING WHY HE ISN'T ON LOVENOX INSTEAD OF THE HEPARIN.
--- NOTE | 2019-09-07 19:10 | NUR ---
theraputic visit with pt daughter. polst on file is full code form past visit . last admission discussed DNR will attemtp copy of updated polst.
[2019-09-08 04:11] LABS: BASOPHILS ABSOLUTE AUTO 0.03 K/mm3 (0.00-0.23); BASOPHILS PERCENT AUTO 0 % (0-2); EOSINOPHILS PERCENT AUTO 1 % (0-6); Hemoglobin 11.4 g/dL (13.5-17.5); IMMATURE GRAN ABSOLUTE AUTO 0.03 K/mm3 (0.00-0.10); IMMATURE GRAN PERCENT AUTO 0 % (0-1); LYMPHOCYTES ABSOLUTE AUTO 0.63 K/mm3 (0.84-5.20); LYMPHOCYTES PERCENT AUTO 9 % (21-46); MONOCYTES ABSOLUTE AUTO 0.57 K/mm3 (0.16-1.47); MONOCYTES PERCENT AUTO 8 % (4-13); Mean Corpuscular HGB 31.6 pg (26.0-34.0); Mean Corpuscular HGB Conc 33.5 g/dL (31.5-36.5); Mean Corpuscular Volume 94 fL (80-100); NEUTROPHILS ABSOLUTE AUTO 5.86 K/mm3 (1.96-9.15); NEUTROPHILS PERCENT AUTO 81 % (41-73); Platelet Count 72 K/mm3 (150-400); RDW Coefficient Variation 13.2 % (11.7-14.2); RDW Standard Deviation 46.1 fL (35.1-46.3); Red Blood Cell Count 3.61 M/mm3 (4.30-5.90); White Blood Cell Count 7.22 K/mm3 (4.00-11.30)
[2019-09-08 04:29] LABS: Alanine Aminotransfer (ALT/SGP 12 U/L (12-78); Albumin, Blood 2.5 g/dL (3.4-5.0); Albumin/Globulin Ratio 0.8 (0.8-1.8); Alk Phos 56 U/L (50-136); Anion Gap 5 mmol/L (6-16); Aspartate Aminotrans (AST/SGOT 24 U/L (12-37); Bilirubin, Total 0.4 mg/dL (0.1-1.0); Blood Urea Nitrogen 16 mg/dL (8-24); Bun/Creatinine Ratio 19.5 (12.0-20.0); CO2, Blood 28 mmol/L (21-32); Calcium, Blood 8.9 mg/dL (8.5-10.1); Chloride, Blood 110 mmol/L (98-108); Creatinine, Blood 0.82 mg/dL (0.60-1.20); Globulin, Blood 3.2 g/dL (2.2-4.0); Glomerular Filtration Rate >60 (60-); Glucose, Blood 92 mg/dL (70-99); Potassium, Blood 3.9 mmol/L (3.5-5.5); Sodium, Blood 143 mmol/L (136-145); Total Protein, Blood 5.7 g/dL (6.4-8.2)
--- NOTE | 2019-09-08 07:43 | NUR ---
SHIFT SUMMARY PATIENT SLEPT ON AND OFF THROUGH NIGHT. FIDDLED OFTEN WITH TUBES AND LINES, WAS ABLE TO TUCK SHEET NEAR HIPS AND DIVERT ANY PULLING OF RODRIGUEZ. ASSESSMENT UNCHANGED THROUGH NIGHT. PT TOOK PILLS WELL WITH APPLESAUCE. SLEPT AT BEDSIDE. LEVOPHED OFF FROM ~ 0200 TO 0500, HAD TO RESTART TO MAINTAIN MAP > 65. NO C/O PAIN, VSS. IT HAS BEEN A PLEASURE TAKING CARE OF THIS PATIENT.
--- NOTE | 2019-09-08 10:00 | NUR ---
ASSUMPTION OF CARE ASSUMED CARE OF PT @ 0700. PT RESTING IN BED, VSS ON 1mcg OF LEVOPHED, ON ROOM AIR WITH O2 SATURATIONS ABOVE 90%. PT UP TO EAT BREAKFAST WITH ASSISTANCE BY FRANCHISE BUSINESS CONSULTANT. OCCASIONAL WEAK COUGH NOTED, LUNG SOUNDS CLEAR RODRIGUEZ PATENT AND DRAINING CLEAR YELLOW URINE. OSTOMY IN PLACE WITH FORMED STOOL. AT 0830 BP DECREASED TO 67/47, LEVOPHED TITRATED TO 3, SUBSEQUENT BP 75/[address] JESSICA IN TO SEE PT AT THIS, PO MIDODRINE INCREASED. DR JEREZ IN TO SEE PT, ECHO AND CORTISOL LAB ORDERED. SPEECH THERAPY IN TO SEE PT ON PTS PROGRESS AND GOOD PO INTAKE, ORDERS STAYED THE SAME FOR PT TO BE IN HIGH FOWLERS AT 90 DEGREES TO EAT AND AN ADDITIONAL DRY SWALLOW EVERY 2-3 BITES. UNABLE TO ADMINISTER AM MEDICATIONS DUE TO PTS REFUSAL OF FOOD, PT SLEEPING AND DIFFICULT TO KEEP AROUSED. PLAN FOR PT TO WORK WITH PT TODAY, BED BATH THIS SHIFT. WILL CONTINUE TO MONITOR BP AND TITRATE LEVO ACCORDINGLY.
--- NOTE | 2019-09-08 17:42 | NUR ---
BEDSIDE ECHO IN ROOM
--- NOTE | 2019-09-08 19:03 | NUR ---
SHIFT SUMMARY PT AROUSABLE TO VERBAL STIMULI, ALERT AT TIMES BUT SLEEPING AND DROWSY THROUGH OUT MUCH OF SHIFT. PT REMAINS ON ROOM AIR, 02 SATURATIONS MAINTAINED ABOVE 90%, LUNGS CLEAR AND DIMINISHED IN THE BASES. LEVOPHED TITRATED THROUGHOUT SHIFT, CURRENTLY AT 1 WITH MAPS MAINTAINED IN THE 70'S, HEARTRATE 50'S-60'S. GOOD PO INTAKE WITH BREAKFAST AND DINNER MEALS, LOW ORAL FLUIDS THROUGHOUT SHIFT. DISCUSSED WITH DR JEREZ AND TKO WAS CHANGED TO 50ml/hr AT 1900. PHYSICAL THERAPY NOT ORDERED TODAY DUE TO PTS HEMODYNAMIC INSTABILITY. BEDBATH, CENTRAL LINE DRESSING CHANGE, AND PERIPHERAL L ARM IV DC'D THIS SHIFT.
--- NOTE | 2019-09-08 19:57 | NUR ---
BEGIN SHIFT RECEIVED BEDSIDE REPORT FROM VICENTE DAY SHIFT RN. PATIENT SLEEPING, EASILY ROUSABLE. ALERT, ORIENTED, NO C/O PAIN. BP SOFT, TITRATED LEVOPHED UP. ALL LINES CLEAN, DRY, INTACT, ASSESSMENT CHARTED. WILL CONTINUE TO MONITOR.
--- NOTE | 2019-09-08 20:42 | NUR ---
PT FLUIDS INCREASED TO 50 ML/HR PER DR JEREZ @ 20:00.
[2019-09-09 03:35] LABS: BASOPHILS ABSOLUTE AUTO 0.02 K/mm3 (0.00-0.23); BASOPHILS PERCENT AUTO 0 % (0-2); EOSINOPHILS ABSOLUTE AUTO 0.33 K/mm3 (0.00-0.68); EOSINOPHILS PERCENT AUTO 6 % (0-6); Hematocrit 34.2 % (37.0-53.0); Hemoglobin 11.4 g/dL (13.5-17.5); IMMATURE GRAN ABSOLUTE AUTO 0.02 K/mm3 (0.00-0.10); IMMATURE GRAN PERCENT AUTO 0 % (0-1); LYMPHOCYTES ABSOLUTE AUTO 0.71 K/mm3 (0.84-5.20); LYMPHOCYTES PERCENT AUTO 12 % (21-46); MONOCYTES ABSOLUTE AUTO 0.65 K/mm3 (0.16-1.47); MONOCYTES PERCENT AUTO 11 % (4-13); Mean Corpuscular HGB 31.6 pg (26.0-34.0); Mean Corpuscular HGB Conc 33.3 g/dL (31.5-36.5); Mean Corpuscular Volume 95 fL (80-100); Mean Platelet Volume 10.7 fL (9.1-12.4); NEUTROPHILS ABSOLUTE AUTO 4.08 K/mm3 (1.96-9.15); NEUTROPHILS PERCENT AUTO 70 % (41-73); Platelet Count 78 K/mm3 (150-400); RDW Coefficient Variation 13.4 % (11.7-14.2); RDW Standard Deviation 46.9 fL (35.1-46.3); Red Blood Cell Count 3.61 M/mm3 (4.30-5.90); White Blood Cell Count 5.81 K/mm3 (4.00-11.30)
[2019-09-09 03:50] LABS: Alanine Aminotransfer (ALT/SGP 14 U/L (12-78); Albumin, Blood 2.4 g/dL (3.4-5.0); Albumin/Globulin Ratio 0.8 (0.8-1.8); Alk Phos 55 U/L (50-136); Anion Gap 4 mmol/L (6-16); Aspartate Aminotrans (AST/SGOT 20 U/L (12-37); Bilirubin, Total 0.4 mg/dL (0.1-1.0); Blood Urea Nitrogen 15 mg/dL (8-24); Bun/Creatinine Ratio 19.9 (12.0-20.0); CO2, Blood 28 mmol/L (21-32); Calcium, Blood 8.8 mg/dL (8.5-10.1); Chloride, Blood 112 mmol/L (98-108); Creatinine, Blood 0.76 mg/dL (0.60-1.20); Globulin, Blood 3.2 g/dL (2.2-4.0); Glomerular Filtration Rate >60 (60-); Glucose, Blood 98 mg/dL (70-99); Magnesium, Blood 1.7 mg/dL (1.6-2.4); Phosphorus, Blood 2.3 mg/dL (2.5-4.9); Potassium, Blood 3.6 mmol/L (3.5-5.5); Sodium, Blood 144 mmol/L (136-145); Total Protein, Blood 5.6 g/dL (6.4-8.2)
--- NOTE | 2019-09-09 07:49 | NUR ---
ASSUMED CARE PT. AWAKENS TO VERBAL STIMULI, PT SLEEPING AT BEDSIDE. VSS UPON ASSESSMENT. LEVOPHED TITRATED DOWN TO 1.5MCG/KG/MIN. PT. DENIES PAIN. LS CLEAR T/O ON RA. PT HAS SMALL AMOUNT OF FORMED STOOL IN OSTOMY BAG, BAG BURPED THIS AM. PT. HAS RODRIGUEZ IN PLACE DRAINING TO GRAVITY. NADN. CALL LIGHT IN REACH.
--- NOTE | 2019-09-09 11:31 | NUR ---
UPDATE BEDBATH COMPLETED, HEEL PROTECTORS AND COCCYX MEPILEX PLACED. PT. UP TO RECLINER WITH LIFT. FAMILY REMAINS AT BEDSIDE. REMAINS ON LEVOPHED GTT.
--- NOTE | 2019-09-09 17:49 | NUR ---
SHIFT SUMMARY PT. REMAINS UP IN BEDSIDE CHAIR FOR MAJORITY OF SHIFT. PT. ASSISTS PT WITH NECTAR THICK LIQUIDS AND FOOD TRAYS. PT. SITTING UP IN UPRIGHT POSITION. LEVOPHED GTT TITRATED DOWN TO 1MCG, AND MIDODRINE INCREASED TODAY. PT. VSS T/O SHIFT. NADN. CALL LIGHT IN REACH, REPORT TO ONCOMING RN.
--- NOTE | 2019-09-09 20:45 | NUR ---
PATIENT WAS UP IN RECLINER CHAIR. MOVED BACK TO BED USING OVER HEAD LIFT, PATIENT GITA WELL. PATIENT SLIGHTLY CONFUSED BUT ABLE TO MAKE NEEDS KNOWN. TREMOR SEEN TO BODY HX PARKINSONS. LEVOPHED DRIP CONTINUES AT 1MCG/HR PLACED NS TKO WITH THE LINE DUE TO SLOW RATE. PLAN TO TITRATE NEEDED FOR HYPOTENSION. PATIENTS AT BEDSIDE PROVIDING GOOD SUPPORT.
--- NOTE | 2019-09-09 22:34 | NUR ---
PATIENT AWAKENS TO VERBAL STIMULI. GITA PO MEDICATIONS, CRUSHED AND IN APPLESAUCE, WITH NO DIFFICULTY.
[2019-09-10 03:47] LABS: BASOPHILS ABSOLUTE AUTO 0.04 K/mm3 (0.00-0.23); BASOPHILS PERCENT AUTO 1 % (0-2); EOSINOPHILS ABSOLUTE AUTO 0.48 K/mm3 (0.00-0.68); EOSINOPHILS PERCENT AUTO 9 % (0-6); Hematocrit 31.5 % (37.0-53.0); Hemoglobin 10.4 g/dL (13.5-17.5); IMMATURE GRAN ABSOLUTE AUTO 0.02 K/mm3 (0.00-0.10); IMMATURE GRAN PERCENT AUTO 0 % (0-1); LYMPHOCYTES ABSOLUTE AUTO 0.88 K/mm3 (0.84-5.20); LYMPHOCYTES PERCENT AUTO 17 % (21-46); MONOCYTES PERCENT AUTO 10 % (4-13); Mean Corpuscular HGB 30.7 pg (26.0-34.0); Mean Corpuscular Volume 93 fL (80-100); Mean Platelet Volume 10.7 fL (9.1-12.4); NEUTROPHILS ABSOLUTE AUTO 3.25 K/mm3 (1.96-9.15); NEUTROPHILS PERCENT AUTO 63 % (41-73); Platelet Count 92 K/mm3 (150-400); RDW Coefficient Variation 13.4 % (11.7-14.2); RDW Standard Deviation 45.4 fL (35.1-46.3); Red Blood Cell Count 3.39 M/mm3 (4.30-5.90); White Blood Cell Count 5.17 K/mm3 (4.00-11.30)
[2019-09-10 04:00] LABS: Albumin, Blood 2.2 g/dL (3.4-5.0); Anion Gap 2 mmol/L (6-16); Blood Urea Nitrogen 14 mg/dL (8-24); Bun/Creatinine Ratio 19.9 (12.0-20.0); CO2, Blood 29 mmol/L (21-32); Calcium, Blood 8.4 mg/dL (8.5-10.1); Chloride, Blood 113 mmol/L (98-108); Glomerular Filtration Rate >60 (60-); Glucose, Blood 86 mg/dL (70-99); Phosphorus, Blood 2.6 mg/dL (2.5-4.9); Potassium, Blood 3.7 mmol/L (3.5-5.5); Sodium, Blood 144 mmol/L (136-145)
--- NOTE | 2019-09-10 06:35 | NUR ---
SUMMARY PATIENT SLEEPING OFF AND ON T/O NIGHT. WHEN AWAKE PARKINSON TREMOR SEEN TO EXTREMITIES. PATIENTS SPEECH SOFT AND DIFFICULT TO UNDERSTAND AT TIMES, PATIENT ALSO HAVING CONFUSED CONVERSATION. ATTEMPT TO TURN LEVOPHED OFF AND SBP 80'S WITH MAP DOWN TO 50'S. LEVOPHED CONTINUES AT 1 MCG. PATIENT GITA PO MEDS WITH APPLESAUCE WITH PILLS CRUSHED WHEN ABLE. COLOSTOMY DRAINING SOFT FORMED BROWN BM.
--- NOTE | 2019-09-10 09:01 | NUR ---
Pt awake and alert, talking and answering simple questions appropriately, oriented to self and who is at bedside. Pt assisted to eat breakfast, tolerated well. MAP decreased with position change, levo titrated to keep MAP >65. Pt laid back down to semi fowlers after eating.
--- NOTE | 2019-09-10 11:46 | NUR ---
ASSUMED CARE NOTE: ASSUMED CARE OF PT AT 0700, RECEIVED REPORT FROM JERAMIE VALLE. UPON ENTERING ROOM PT WAS ON RA WITH SPO2 ABOVE 90%. ALERT AND ORIENTED TO FAMILY AND SELF. ABLE TO FOLLOW DIRESCTIONS. PT IS IN SINUS RHYTHYM WITH HR BETWEEN 50-60 BPM. PT WAS ABLE TO TAKE MEDS WITH APPLESAUCE, NO S/S OF ASPIRATION. PHYSICAL THERAPY WAS ABLE TO WORK WITH PT THIS AFTERNOON. GOAL IS TO GET PT OUT OF BED AND INTO THE CHAIR. LEVOPHED @ 2MCG//MIN, WILL ATTEMPT TO TITRATE DOWN. WILL CONTINUE TO MONITOR PT T/O SHIFT. BED AT LOWEST LEVEL, CALL LIGHT WITHIN REACH.
[2019-09-10 14:06] LABS: HEPARIN INDUCED PLATELET AB 0.115 OD (0.000-0.400)
--- NOTE | 2019-09-10 15:02 | NUR ---
1345: PT TO ICU 9 AT THIS TIME, FRIEND AT BEDSIDE. NO CHANGES IN PATIENT STATUS, WILL CONTINUE TO TITRATE LEVOPHED ABLE. PT REPOSITIONED, DENIES DISCOMFORT OR NEEDS AT THIS TIME.
--- NOTE | 2019-09-10 17:30 | NUR ---
SHIFT SUMMARY PT HAS REMAINED ALERT AND ORIENTED TO SELF AND FAMILY. HE IS ALSO ABLE TO ANSWER YES/NO QUESTIONS. PT DENIES ANY PAIN DURING SHIFT. PT IS IN SINUS ARRYTHMIA WITH HR BETWEEN 60-70 BPM. LEVOPHED HAS BEEN OFF SINCE 1430, MAP HAS REMAINED ABOVE 60. BP HAS IMPROVED AND SBP HAS REMAINED ABOVE 90. COLOSTOMY WAS CLEANED AND EMPTYED ONCE THIS SHIFT, WITH BROWN SOFT FORMED BM. PT HAS HAD GOOD APPETITE TODAY. RODRIGUEZ PATENT AND DRAINING ORANGE URINE. WILL CONTINUE TO MONITOR PT UNTIL REPORT IS GIVEN TO ONCOMING SHIFT. BED AT LOWEST LEVEL, AT BEDSIDE.
--- NOTE | 2019-09-10 20:12 | NUR ---
PATIENT RESTING QUIETLY IN BED WITH AT BEDSIDE. SPEECH SOFT AND TREMOR SEEN HX PARKINSON. ASSISTING WITH REPOSITIONING. LEVOPHED REMAINS OFF AT THIS TIME. NO COMPLAINTS AT THIS TIME.
[2019-09-11 04:40] LABS: Hematocrit 31.6 % (37.0-53.0); Hemoglobin 10.5 g/dL (13.5-17.5); Mean Corpuscular HGB 31.5 pg (26.0-34.0); Mean Corpuscular HGB Conc 33.2 g/dL (31.5-36.5); Mean Corpuscular Volume 95 fL (80-100); Mean Platelet Volume 10.4 fL (9.1-12.4); Platelet Count 115 K/mm3 (150-400); RDW Coefficient Variation 13.4 % (11.7-14.2); RDW Standard Deviation 46.9 fL (35.1-46.3); Red Blood Cell Count 3.33 M/mm3 (4.30-5.90); White Blood Cell Count 5.51 K/mm3 (4.00-11.30)
[2019-09-11 05:08] LABS: Albumin, Blood 2.2 g/dL (3.4-5.0); Anion Gap 3 mmol/L (6-16); Blood Urea Nitrogen 17 mg/dL (8-24); Bun/Creatinine Ratio 23.4 (12.0-20.0); CO2, Blood 28 mmol/L (21-32); Calcium, Blood 8.4 mg/dL (8.5-10.1); Chloride, Blood 113 mmol/L (98-108); Creatinine, Blood 0.73 mg/dL (0.60-1.20); Glomerular Filtration Rate >60 (60-); Glucose, Blood 78 mg/dL (70-99); Phosphorus, Blood 2.3 mg/dL (2.5-4.9); Potassium, Blood 3.8 mmol/L (3.5-5.5); Sodium, Blood 144 mmol/L (136-145)
--- NOTE | 2019-09-11 06:52 | NUR ---
SUMMARY PATIENT SLEEPING OFF AND ON T/O THE NIGHT, ASSISTING WITH REPOSITIONING. PARKINSON TREMOR CONTINUES AND PATIENT CONTINUES TO NEED REORIENTATION. LEVOPHED REMAINS OFF WHILE SLEEPING PATIENT SBP 80'S MAINTAINING MAP 60 AND ABOVE. PATIENT AWAKENS EASILY WITH SLIGHT STIMULI. ELECTROLYTE PROTOCOL
--- NOTE | 2019-09-11 12:00 | NUR ---
PT UPDATE PT REMAINS NEURO, CV AND RESP STABLE. TOLERATING DIET, WITH LARGE BROWN BM VIA COLOSTOMY. UO ADEQUATE. PT DOWNGRADED TO PCU AND WILL D/C WHEN BED BECOMES AVAILABLE
--- NOTE | 2019-09-11 13:00 | NUR ---
INITIAL ASSESMENT PT ALERT AND COOPERATIVE AND VERY PLEASANT. OBEYS COMMANDS AND RESPONDS WITH A VERY WEAK/SOFT VOICE. DENIES PAIN AT THIS TIME.VSS, PALP PULSES T/O AND NO EDEMA. RA WITH SATS WNL. NO S/S OF RESP DISTRESS OR SOB. CLEAR AND DIM BILAT. OSTOMY INTACT, SURROUNDING SKIN INTACT STOMA PINK AND MOIST BT T/O. UO ADEQUATE VIA RODRIGUEZ, YELLOW TO ORANGE AND CLEAR. TOLERATING PURREE WITH NO S/S OF ASPIRATION. SKIN INTACT. CL TO REMAIN IN PLACE UNTIL 09/11 PER MD. WILL CONT TO MONITOR.
--- NOTE | 2019-09-11 20:47 | NUR ---
PATIENT RESTING QUIETLY WATCHING TV WITH . CONTINUES TO HAVE CONFUSED CONVERSATION, BUT FOLLOWING DIRECTIONS AND ASSISTING WITH REPOSITIONING. PARKINSONS TREMOR CONTINUES LEVOPHED REMAINS OFF. COLOSTOMY INTACT WITH SMALL AMT OF BROWN FORMED STOOL IN BAG.
[2019-09-12 04:19] LABS: BASOPHILS ABSOLUTE AUTO 0.04 K/mm3 (0.00-0.23); BASOPHILS PERCENT AUTO 1 % (0-2); EOSINOPHILS PERCENT AUTO 8 % (0-6); Hematocrit 32.1 % (37.0-53.0); Hemoglobin 10.6 g/dL (13.5-17.5); IMMATURE GRAN ABSOLUTE AUTO 0.03 K/mm3 (0.00-0.10); IMMATURE GRAN PERCENT AUTO 1 % (0-1); LYMPHOCYTES ABSOLUTE AUTO 1.21 K/mm3 (0.84-5.20); LYMPHOCYTES PERCENT AUTO 25 % (21-46); MONOCYTES ABSOLUTE AUTO 0.55 K/mm3 (0.16-1.47); MONOCYTES PERCENT AUTO 11 % (4-13); Mean Corpuscular HGB 31.3 pg (26.0-34.0); Mean Corpuscular Volume 95 fL (80-100); Mean Platelet Volume 10.1 fL (9.1-12.4); NEUTROPHILS ABSOLUTE AUTO 2.59 K/mm3 (1.96-9.15); NEUTROPHILS PERCENT AUTO 54 % (41-73); Platelet Count 153 K/mm3 (150-400); RDW Coefficient Variation 13.3 % (11.7-14.2); Red Blood Cell Count 3.39 M/mm3 (4.30-5.90); White Blood Cell Count 4.82 K/mm3 (4.00-11.30)
[2019-09-12 04:36] LABS: Anion Gap 4 mmol/L (6-16); Blood Urea Nitrogen 17 mg/dL (8-24); Bun/Creatinine Ratio 22.8 (12.0-20.0); CO2, Blood 27 mmol/L (21-32); Calcium, Blood 8.5 mg/dL (8.5-10.1); Chloride, Blood 113 mmol/L (98-108); Creatinine, Blood 0.75 mg/dL (0.60-1.20); Glomerular Filtration Rate >60 (60-); Glucose, Blood 77 mg/dL (70-99); Potassium, Blood 3.8 mmol/L (3.5-5.5); Sodium, Blood 144 mmol/L (136-145)
--- NOTE | 2019-09-12 06:35 | NUR ---
SUMMARY PATIENT SLEEPING OFF AND ON T/O NIGHT. ASSISTING WITH REPOSITIONING. CONTINUES TO SPEAK IN WHISPER, MAKING NEEDS KNOWN. CONFUSION CONTINUES. AT BEDSIDE T/O THE NIGHT. COLOSTOMY WITH BROWN FORMED STOOL. LEVOPHED DRIP REMAINS OFF RIGHT IJ CENTRAL LINE REMOVED WITHOUT DIFFICULTY AFTER OBTAINING 20G IV TO RIGHT FA.
--- NOTE | 2019-09-12 08:00 | NUR ---
INITIAL ASSESMENT PT ALERT AND COOPERATIVE AND VERY PLEASANT. OBEYS COMMANDS AND RESPONDS WITH VERY WEAK/SOFT VOICE. DENIES PAIN AT THIS TIME.VSS, PALP PULSES T/O AND NO EDEMA. RA WITH SATS WNL. NO S/S OF RESP DISTRESS OR SOB. CLEAR AND DIM BILAT. OSTOMY INTACT, SURROUNDING SKIN INTACT STOMA PINK AND MOIST BT T/O. UO ADEQUATE VIA RODRIGUEZ, YELLOW TO ORANGE AND CLEAR. TOLERATING PURREE WITH NO S/S OF ASPIRATION. SKIN INTACT. WILL CONT TO MONITOR
--- NOTE | 2019-09-12 17:53 | NUR ---
PATIENT TRANSFERRED FROM ICU 9 TO ROOM 333. REPORT RECEIVED FROM LEONARD BUCIO. 22G IV TO R FA WNL, NS @ 50ML/HR RUNNING. CHRONIC RODRIGUEZ TO GRAVITY. COLOSTOMY TO LLQ ABDOMEN. AT BEDSIDE. ORIENTED TO ROOM AND USE OF CALL LIGHT. PATIENT CAN PIVOT TRANSFER WITH 2 ASSIST PER REPORT. A/OX4, SPEAKS VERY SOFTLY AND DIFFICULT TO UNDERSTAND. DENIES ANY PAIN. VSS, ON RA. PATIENT IS A FEEDER, TOLERATING PUREE VEGETARIAN DIET WITH NECTAR THICK LIQUIDS. SKIN INTACT. PLAN IS TO D/C BACK TO [facility] SOON THEY ARE ABLE TO TAKE HIM.
--- NOTE | 2019-09-13 04:34 | NUR ---
83 yr old male with parkinsons continues to rest in bed with repositioning as ordered for comfort and skin maintenance. Colostomy functioning - small amt brown feces in bag. Deutsch cath draining dark rowdy. Attempted to pull IV out earlier in the shift, but was intact and flushed well. IVF of NS continue at 50 ml/hr. at bedside. Call light in reach.
[2019-09-13 04:57] LABS: BASOPHILS ABSOLUTE AUTO 0.05 K/mm3 (0.00-0.23); BASOPHILS PERCENT AUTO 1 % (0-2); EOSINOPHILS ABSOLUTE AUTO 0.45 K/mm3 (0.00-0.68); EOSINOPHILS PERCENT AUTO 8 % (0-6); Hemoglobin 11.9 g/dL (13.5-17.5); IMMATURE GRAN ABSOLUTE AUTO 0.03 K/mm3 (0.00-0.10); IMMATURE GRAN PERCENT AUTO 1 % (0-1); LYMPHOCYTES ABSOLUTE AUTO 1.34 K/mm3 (0.84-5.20); LYMPHOCYTES PERCENT AUTO 25 % (21-46); MONOCYTES ABSOLUTE AUTO 0.56 K/mm3 (0.16-1.47); MONOCYTES PERCENT AUTO 10 % (4-13); Mean Corpuscular HGB 30.3 pg (26.0-34.0); Mean Corpuscular HGB Conc 32.2 g/dL (31.5-36.5); Mean Corpuscular Volume 94 fL (80-100); Mean Platelet Volume 9.9 fL (9.1-12.4); NEUTROPHILS ABSOLUTE AUTO 2.96 K/mm3 (1.96-9.15); NEUTROPHILS PERCENT AUTO 55 % (41-73); Platelet Count 203 K/mm3 (150-400); RDW Coefficient Variation 13.3 % (11.7-14.2); RDW Standard Deviation 45.7 fL (35.1-46.3); Red Blood Cell Count 3.93 M/mm3 (4.30-5.90); White Blood Cell Count 5.39 K/mm3 (4.00-11.30)
[2019-09-13 05:20] LABS: Anion Gap 5 mmol/L (6-16); Blood Urea Nitrogen 20 mg/dL (8-24); Bun/Creatinine Ratio 25.5 (12.0-20.0); CO2, Blood 27 mmol/L (21-32); Calcium, Blood 8.8 mg/dL (8.5-10.1); Chloride, Blood 111 mmol/L (98-108); Creatinine, Blood 0.79 mg/dL (0.60-1.20); Glomerular Filtration Rate >60 (60-); Glucose, Blood 83 mg/dL (70-99); Sodium, Blood 143 mmol/L (136-145)
--- NOTE | 2019-09-13 18:40 | NUR ---
NO ACUTE CHANGES THIS SHIFT. VSS, ON RA. MIRDORINE SCHEDULED FOR HYPOTENSION. UP TO CHAIR FOR MOST OF THIS SHIFT. AT BEDSIDE. 22G IV TO R FA WNL, NS @ 50ML/HR INFUSING. SR WITH PAC'S IN THE 70'S. CHRONIC RODRIGUEZ TO GRAVITY. ASPIRATION PRECAUTIONS, PUREE DIET WITH NECTAR THICK LIQUIDS. MEPILEX TO COCCYX WNL. SOLOSTOMY TO LLQ WITH FORMED SOFT STOOL THIS SHIFT. PLAN IS TO D/C BACK TO [facility] IN AM.
--- NOTE | 2019-09-14 03:11 | NUR ---
09/13/192014 PT ESCORTED VIA BEDSIDE LOUNGE CHAIR WITH AT SIDE TO VISIT HIS SISTER IN ANOTHER ROOM. PT WAS THEN ESCORTED BACK TO ROOM AND ASSISTED INTO BED VIA GAIT BELT, PIVOT, TRANSFER X 4 ASSIST, PT BEARS MINIMAL WEIGHT AND REQUIRED MAXIMUM ASSISTANCE FROM STAFF, PTS AT SIDE AND SUPPORTIVE, PT ALERT PERSON ONLY, MUMBLES WORDS INCOHERENTLY TO SELF THAT ARE SPOKEN LOW MONOTONE AND VERY DIFFICULT TO UNDERSTAND. 09/14/19 PT RESTING COMFORTABLY IN BED, BED ALARM APPLIED.
[2019-09-14 05:01] LABS: BASOPHILS ABSOLUTE AUTO 0.05 K/mm3 (0.00-0.23); BASOPHILS PERCENT AUTO 1 % (0-2); EOSINOPHILS ABSOLUTE AUTO 0.42 K/mm3 (0.00-0.68); EOSINOPHILS PERCENT AUTO 8 % (0-6); Hematocrit 37.6 % (37.0-53.0); Hemoglobin 12.2 g/dL (13.5-17.5); IMMATURE GRAN ABSOLUTE AUTO 0.03 K/mm3 (0.00-0.10); IMMATURE GRAN PERCENT AUTO 1 % (0-1); LYMPHOCYTES ABSOLUTE AUTO 1.03 K/mm3 (0.84-5.20); LYMPHOCYTES PERCENT AUTO 20 % (21-46); MONOCYTES ABSOLUTE AUTO 0.38 K/mm3 (0.16-1.47); MONOCYTES PERCENT AUTO 7 % (4-13); Mean Corpuscular HGB 30.7 pg (26.0-34.0); Mean Corpuscular HGB Conc 32.4 g/dL (31.5-36.5); Mean Corpuscular Volume 95 fL (80-100); Mean Platelet Volume 9.9 fL (9.1-12.4); NEUTROPHILS ABSOLUTE AUTO 3.38 K/mm3 (1.96-9.15); NEUTROPHILS PERCENT AUTO 64 % (41-73); Platelet Count 239 K/mm3 (150-400); RDW Coefficient Variation 13.6 % (11.7-14.2); RDW Standard Deviation 46.5 fL (35.1-46.3); Red Blood Cell Count 3.98 M/mm3 (4.30-5.90); White Blood Cell Count 5.29 K/mm3 (4.00-11.30)
[2019-09-14 05:18] LABS: Anion Gap 3 mmol/L (6-16); Blood Urea Nitrogen 25 mg/dL (8-24); Bun/Creatinine Ratio 33.4 (12.0-20.0); CO2, Blood 29 mmol/L (21-32); Calcium, Blood 9.1 mg/dL (8.5-10.1); Chloride, Blood 111 mmol/L (98-108); Creatinine, Blood 0.75 mg/dL (0.60-1.20); Glomerular Filtration Rate >60 (60-); Glucose, Blood 85 mg/dL (70-99); Potassium, Blood 4.2 mmol/L (3.5-5.5); Sodium, Blood 143 mmol/L (136-145)
--- NOTE | 2019-09-14 06:31 | NUR ---
SHIFT SUMMARY: 83 Y/O MALE RESTED COMFORTABLY IN BED WITH SPENDING NIGHT AT SIDE AND VERY SUPPORTIVE, DENIES PAIN OR NAUSEA, TAKES ALL MEDS CRUSHED IN APPLESAUCE WHILE BEING FED BY THIS NURSE, BED ALARM APPLIED, BED LOW POSITION WITH CALL LIGHT AT SIDE.
[2019-09-14] MEDS ORDERED: Cefdinir300 MG PO (11:16)
[2019-09-14] MEDS ORDERED: Vsl#3 Capsule1 EACH PO (11:16)
[2019-09-14] MEDS ORDERED: MIDO5 PO (11:17)
--- NOTE | 2019-09-14 12:16 | NUR ---
DISCHARGE NOTE HANDOFF CALLED TO [facility]. IV DC'D WNL. CHRONIC RODRIGUEZ LEFT IN PLACE. MEDICATIONS AND DISCHARGE ORDERS PAPERWORK FAXED TO [facility]. PRESCRIPTIONS FAXED TO [facility]REF[facility]ED [facility]. PT DRESSED IN PERSONAL CLOTHING. PERSONAL POSSESSIONS SENT WITH SPOUSE. FOLLOW UP APPOINTMENT MADE WITH PCP. HARDCOPY AND VERBAL INSTRUCTIONS FOR DC PROVIDED TO SPOUSE.
== END 2019-09-14 11:40 | disposition home or self-care (01) | DRG 698 ==
LOC: ER 10:43 → ICUW 13:12 → ICUE 13:12 → ICUW 09-10 13:43 → MEDS 09-12 17:44
PROVIDERS: Emergency Medicine; Internal Medicine; Internal Medicine Critical Care Medicine; Internal Medicine Pulmonary Disease; Nurse Practitioner Acute Care; ADMIT Internal Medicine
PROC: 05HM33Z Insertion of Infusion Device into Right Internal Jugular Vein, Percutaneous Approach (ICD-10-PCS; principal; 2019-09-05)
PROC: B543ZZA Ultrasonography of Right Jugular Veins, Guidance (ICD-10-PCS; 2019-09-05)
PROC: 3E043XZ Introduction of Vasopressor into Central Vein, Percutaneous Approach (ICD-10-PCS; 2019-09-05)
DX: T83.511A Infection and inflammatory reaction due to indwelling urethral catheter, initial encounter (principal); A41.81 Sepsis due to Enterococcus; E43 Unspecified severe protein-calorie malnutrition; R65.21 Severe sepsis with septic shock; G92 Toxic encephalopathy; N17.9 Acute kidney failure, unspecified; E87.2 Acidosis; N39.0 Urinary tract infection, site not specified; I95.9 Hypotension, unspecified; D69.6 Thrombocytopenia, unspecified; B96.4 Proteus (mirabilis) (morganii) as the cause of diseases classified elsewhere; N40.0 Benign prostatic hyperplasia without lower urinary tract symptoms; G20 Parkinson's disease; F02.80 Dementia in other diseases classified elsewhere, unspecified severity, without behavioral disturbance, psychotic disturbance, mood disturbance, and anxiety; E83.39 Other disorders of phosphorus metabolism; G47.33 Obstructive sleep apnea (adult) (pediatric); F32.9 Major depressive disorder, single episode, unspecified; K21.9 Gastro-esophageal reflux disease without esophagitis; Z66 Do not resuscitate; Z87.440 Personal history of urinary (tract) infections; Z93.3 Colostomy status; Z68.26 Body mass index [BMI] 26.0-26.9, adult; Z79.82 Long term (current) use of aspirin; Z98.890 Other specified postprocedural states
CPT/HCPCS: 36415; 36556; 51702; 71045; 76770; 80048; 80053; 80069; 81001; 82533; 82550; 83605; 83735; 84100; 84443; 85025; 85027; 85610; 86022; 87040; 87077; 87086; 87186; 92526; 92610; 93005; 93010; 93306; 96365-59; 96367-59; 97110; 97162; 97166; 97530; 97535; 99283-25; 99285-25; A9270; C1751; C9113; J0692; J0696; J1644; J3010; J7030; J7040; J7050; J7060; J7120; P9046

== ENCOUNTER 2019-09-25 17:45 | Emergency (ER) | payer OTHER ==
[~2019-09-25] VITALS: Ht 182.9 cm; Wt 74.8 kg
[~2019-09-25 17:45] MED LIST changes: +Baza Protect C142 GM TOP; +CHILDREN'S100 MG/51 PO; +Cefdinir300 MG PO; +MIDO5 PO; +Pedi-Dri 100,0060 GM TOP; +Pyridium100 MG PO; +Vsl#3 Capsule1 EACH PO
[2019-09-25 19:42] LABS: BASOPHILS ABSOLUTE AUTO 0.05 K/mm3 (0.00-0.23); BASOPHILS PERCENT AUTO 1 % (0-2); EOSINOPHILS PERCENT AUTO 0 % (0-6); Hemoglobin 12.6 g/dL (13.5-17.5); IMMATURE GRAN ABSOLUTE AUTO 0.04 K/mm3 (0.00-0.10); IMMATURE GRAN PERCENT AUTO 0 % (0-1); LYMPHOCYTES ABSOLUTE AUTO 0.82 K/mm3 (0.84-5.20); LYMPHOCYTES PERCENT AUTO 8 % (21-46); MONOCYTES ABSOLUTE AUTO 0.71 K/mm3 (0.16-1.47); MONOCYTES PERCENT AUTO 7 % (4-13); Mean Corpuscular HGB Conc 32.3 g/dL (31.5-36.5); Mean Corpuscular Volume 96 fL (80-100); NEUTROPHILS ABSOLUTE AUTO 8.14 K/mm3 (1.96-9.15); NEUTROPHILS PERCENT AUTO 83 % (41-73); RDW Coefficient Variation 14.2 % (11.7-14.2); RDW Standard Deviation 49.8 fL (35.1-46.3); Red Blood Cell Count 4.06 M/mm3 (4.30-5.90); White Blood Cell Count 9.76 K/mm3 (4.00-11.30)
[2019-09-25 19:44] LABS: Mean Platelet Volume 10.5 fL (9.1-12.4); Platelet Count 221 K/mm3 (150-400)
[2019-09-25 19:53] LABS: Alanine Aminotransfer (ALT/SGP 22 U/L (12-78); Albumin, Blood 3.2 g/dL (3.4-5.0); Albumin/Globulin Ratio 0.8 (0.8-1.8); Alk Phos 63 U/L (50-136); Anion Gap 5 mmol/L (6-16); Aspartate Aminotrans (AST/SGOT 15 U/L (12-37); Bilirubin, Total 0.9 mg/dL (0.1-1.0); Blood Urea Nitrogen 22 mg/dL (8-24); CO2, Blood 26 mmol/L (21-32); Calcium, Blood 9.3 mg/dL (8.5-10.1); Chloride, Blood 104 mmol/L (98-108); Glomerular Filtration Rate >60 (60-); Glucose, Blood 108 mg/dL (70-99); Potassium, Blood 4.3 mmol/L (3.5-5.5); Sodium, Blood 135 mmol/L (136-145); Total Protein, Blood 7.2 g/dL (6.4-8.2)
[2019-09-25] MEDS ORDERED: Keflex500 MG PO (20:22)
== END 2019-09-25 22:35 | disposition home or self-care (01) ==
LOC: ER 17:45
PROVIDERS: Emergency Medicine
DX: N39.0 Urinary tract infection, site not specified (principal); G20 Parkinson's disease; Z79.899 Other long term (current) drug therapy; Z79.82 Long term (current) use of aspirin; F03.90 Unspecified dementia, unspecified severity, without behavioral disturbance, psychotic disturbance, mood disturbance, and anxiety; G47.30 Sleep apnea, unspecified
CPT/HCPCS: 71045; 80053; 85025; 96365; 99284-25; J0696; J7030

== ENCOUNTER 2019-09-26 08:54 | Emergency (ER) | payer OTHER ==
[~2019-09-26] VITALS: Ht 177.8 cm; Wt 72.6 kg
[~2019-09-26 08:54] MED LIST changes: +Keflex500 MG PO
[2019-09-26 09:23] LABS: BASOPHILS ABSOLUTE AUTO 0.04 K/mm3 (0.00-0.23); BASOPHILS PERCENT AUTO 1 % (0-2); EOSINOPHILS PERCENT AUTO 0 % (0-6); Hematocrit 37.5 % (37.0-53.0); Hemoglobin 12.1 g/dL (13.5-17.5); IMMATURE GRAN ABSOLUTE AUTO 0.03 K/mm3 (0.00-0.10); IMMATURE GRAN PERCENT AUTO 0 % (0-1); LYMPHOCYTES ABSOLUTE AUTO 0.79 K/mm3 (0.84-5.20); LYMPHOCYTES PERCENT AUTO 10 % (21-46); MONOCYTES ABSOLUTE AUTO 0.57 K/mm3 (0.16-1.47); MONOCYTES PERCENT AUTO 8 % (4-13); Mean Corpuscular HGB 31.4 pg (26.0-34.0); Mean Corpuscular HGB Conc 32.3 g/dL (31.5-36.5); Mean Corpuscular Volume 97 fL (80-100); Mean Platelet Volume 10.2 fL (9.1-12.4); NEUTROPHILS ABSOLUTE AUTO 6.18 K/mm3 (1.96-9.15); NEUTROPHILS PERCENT AUTO 81 % (41-73); Platelet Count 203 K/mm3 (150-400); RDW Coefficient Variation 14.1 % (11.7-14.2); RDW Standard Deviation 50.5 fL (35.1-46.3); Red Blood Cell Count 3.85 M/mm3 (4.30-5.90); White Blood Cell Count 7.61 K/mm3 (4.00-11.30)
[2019-09-26 09:25] LABS: Anion Gap 5 mmol/L (6-16); Blood Urea Nitrogen 20 mg/dL (8-24); Bun/Creatinine Ratio 18.3 (12.0-20.0); CO2, Blood 27 mmol/L (21-32); Calcium, Blood 9.4 mg/dL (8.5-10.1); Chloride, Blood 109 mmol/L (98-108); Creatinine, Blood 1.09 mg/dL (0.60-1.20); Glomerular Filtration Rate >60 (60-); Glucose, Blood 89 mg/dL (70-99); Potassium, Blood 4.1 mmol/L (3.5-5.5); Sodium, Blood 141 mmol/L (136-145)
== END 2019-09-26 11:36 | disposition home or self-care (01) ==
LOC: ER 08:54
PROVIDERS: Emergency Medicine
DX: N39.0 Urinary tract infection, site not specified (principal); F03.90 Unspecified dementia, unspecified severity, without behavioral disturbance, psychotic disturbance, mood disturbance, and anxiety; G20 Parkinson's disease; Z79.899 Other long term (current) drug therapy; Z79.82 Long term (current) use of aspirin
CPT/HCPCS: 36415; 80048; 83605; 85025; 93005; 93010; 96360; 96361; 99284-25; J7030

== ENCOUNTER 2020-07-14 10:35 | Emergency (ER) | payer OTHER ==
[~2020-07-14] VITALS: Ht 180.3 cm; Wt 77.1 kg
[~2020-07-14 10:35] MED LIST changes: +CEPH500 PO; +Cefpodoxime Pr100 MG PO
[2020-07-14 11:38] LABS: Source, Urine Catheter
[2020-07-14 11:39] LABS: Alanine Aminotransfer (ALT/SGP <6 U/L (12-78); Albumin, Blood 3.4 g/dL (3.4-5.0); Albumin/Globulin Ratio 0.9 (0.8-1.8); Alk Phos 62 U/L (50-136); Anion Gap 2 mmol/L (6-16); Aspartate Aminotrans (AST/SGOT 17 U/L (12-37); Bilirubin, Total 0.6 mg/dL (0.1-1.0); Blood Urea Nitrogen 16 mg/dL (8-24); CO2, Blood 28 mmol/L (21-32); Calcium, Blood 9.3 mg/dL (8.5-10.1); Chloride, Blood 114 mmol/L (98-108); Globulin, Blood 3.9 g/dL (2.2-4.0); Glomerular Filtration Rate >60 (60-); Glucose, Blood 82 mg/dL (70-99); Potassium, Blood 4.1 mmol/L (3.5-5.5); Sodium, Blood 144 mmol/L (136-145); Total Protein, Blood 7.3 g/dL (6.4-8.2)
[2020-07-14 11:41] LABS: BASOPHILS ABSOLUTE AUTO 0.05 K/mm3 (0.00-0.23); BASOPHILS PERCENT AUTO 1 % (0-2); EOSINOPHILS ABSOLUTE AUTO 0.21 K/mm3 (0.00-0.68); EOSINOPHILS PERCENT AUTO 4 % (0-6); Hematocrit 43.7 % (37.0-53.0); Hemoglobin 14.4 g/dL (13.5-17.5); IMMATURE GRAN ABSOLUTE AUTO 0.02 K/mm3 (0.00-0.10); IMMATURE GRAN PERCENT AUTO 0 % (0-1); LYMPHOCYTES ABSOLUTE AUTO 1.16 K/mm3 (0.84-5.20); LYMPHOCYTES PERCENT AUTO 21 % (21-46); MONOCYTES ABSOLUTE AUTO 0.45 K/mm3 (0.16-1.47); MONOCYTES PERCENT AUTO 8 % (4-13); Mean Corpuscular HGB 31.3 pg (26.0-34.0); Mean Corpuscular Volume 95 fL (80-100); NEUTROPHILS ABSOLUTE AUTO 3.75 K/mm3 (1.96-9.15); NEUTROPHILS PERCENT AUTO 66 % (41-73); RDW Coefficient Variation 12.4 % (11.7-14.2); RDW Standard Deviation 42.9 fL (35.1-46.3); White Blood Cell Count 5.64 K/mm3 (4.00-11.30)
[2020-07-14 11:43] LABS: Mean Platelet Volume 9.9 fL (9.1-12.4); Platelet Count 161 K/mm3 (150-400)
[2020-07-14] MEDS ORDERED: CBD OIL (11:55)
[2020-07-14] MEDS ORDERED: CEFP200 PO (12:21)
[2020-07-14 12:35] LABS: Bilirubin, Urine Neg (Neg); Blood, Urine 2+ (Neg); Glucose Qualitative, Urine Neg (Neg); Ketones, Urine 1+ (Neg); Leukocyte Esterase, Urine 3+ (Neg); Nitrite, Urine Pos (Neg); Protein, Urine 3+ (Neg); Urobilinogen, Urine NORM (Normal)
[2020-07-14 12:38] LABS: Appearance, Urine Turbid (Clear); Color, Urine Amber (P-Yellow)
[2020-07-14 12:41] LABS: White Blood Cells, Urine 50-100 /hpf (0-5)
[2020-07-14 12:42] LABS: Amorphous Heavy (0-Heavy); Bacteria Many /hpf; Squamous Epithelial Cells Mod /hpf (Few); Triple Phosphate Crystals Many /hpf
== END 2020-07-14 14:07 | disposition home or self-care (01) ==
LOC: ER 10:35
PROVIDERS: Emergency Medicine
DX: T83.511A Infection and inflammatory reaction due to indwelling urethral catheter, initial encounter (principal); N39.0 Urinary tract infection, site not specified; L89.159 Pressure ulcer of sacral region, unspecified stage; G20 Parkinson's disease; F02.80 Dementia in other diseases classified elsewhere, unspecified severity, without behavioral disturbance, psychotic disturbance, mood disturbance, and anxiety; K21.9 Gastro-esophageal reflux disease without esophagitis; N40.0 Benign prostatic hyperplasia without lower urinary tract symptoms; F41.9 Anxiety disorder, unspecified; F32.9 Major depressive disorder, single episode, unspecified; Z79.82 Long term (current) use of aspirin; Z79.899 Other long term (current) drug therapy
CPT/HCPCS: 36415; 51702; 80053; 81001; 85025; 87077; 87086; 87186; 96360-59; 99284-25; J7030

== ENCOUNTER 2020-08-10 08:31 | Inpatient (IN) | payer OTHER ==
[~2020-08-10] VITALS: Ht 177.8 cm; Wt 73.7 kg
[~2020-08-10 08:31] MED LIST changes: +CBD OIL; +CEFP200 PO
[2020-08-10] MEDS ORDERED: CARBIDOPA-LEVO1 EA19 PO (08:55)
[2020-08-10] MEDS ORDERED: MIRALAX17 GM PO ×2 (08:56→12:15)
[2020-08-10] MEDS ORDERED: VITAMIN D31000 UNI1 PO (08:59)
[2020-08-10] MEDS ORDERED: Vitamin B-12100 MCG PO (08:59)
[2020-08-10 09:09] LABS: BASOPHILS ABSOLUTE AUTO 0.05 K/mm3 (0.00-0.23); BASOPHILS PERCENT AUTO 0 % (0-2); EOSINOPHILS PERCENT AUTO 0 % (0-6); Hematocrit 42.1 % (37.0-53.0); IMMATURE GRAN ABSOLUTE AUTO 0.08 K/mm3 (0.00-0.10); IMMATURE GRAN PERCENT AUTO 1 % (0-1); LYMPHOCYTES ABSOLUTE AUTO 0.44 K/mm3 (0.84-5.20); LYMPHOCYTES PERCENT AUTO 3 % (21-46); MONOCYTES ABSOLUTE AUTO 1.01 K/mm3 (0.16-1.47); MONOCYTES PERCENT AUTO 6 % (4-13); Mean Corpuscular HGB 31.7 pg (26.0-34.0); Mean Corpuscular HGB Conc 33.3 g/dL (31.5-36.5); Mean Corpuscular Volume 95 fL (80-100); Mean Platelet Volume 9.9 fL (9.1-12.4); NEUTROPHILS ABSOLUTE AUTO 15.99 K/mm3 (1.96-9.15); NEUTROPHILS PERCENT AUTO 91 % (41-73); Platelet Count 160 K/mm3 (150-400); RDW Coefficient Variation 12.7 % (11.7-14.2); RDW Standard Deviation 44.4 fL (35.1-46.3); Red Blood Cell Count 4.42 M/mm3 (4.30-5.90); White Blood Cell Count 17.57 K/mm3 (4.00-11.30)
[2020-08-10 09:24] LABS: Albumin, Blood 3.3 g/dL (3.4-5.0); Albumin/Globulin Ratio 0.8 (0.8-1.8); Bun/Creatinine Ratio 11.5 (12.0-20.0); Calcium, Blood 9.6 mg/dL (8.5-10.1); Creatinine, Blood 1.82 mg/dL (0.60-1.20); Globulin, Blood 4.1 g/dL (2.2-4.0); Potassium, Blood 4.2 mmol/L (3.5-5.5); Total Protein, Blood 7.4 g/dL (6.4-8.2)
[2020-08-10 10:44] LABS: Source, Urine Catheter
[2020-08-10 11:09] LABS: Appearance, Urine Turbid (Clear); Bilirubin, Urine Neg (Neg); Blood, Urine 4+ (Neg); Color, Urine Amber (P-Yellow); Glucose Qualitative, Urine Neg (Neg); Ketones, Urine 1+ (Neg); Leukocyte Esterase, Urine 3+ (Neg); Nitrite, Urine Pos (Neg); Protein, Urine 3+ (Neg); Urobilinogen, Urine NORM (Normal)
[2020-08-10 11:28] LABS: White Blood Cells, Urine TNTC /hpf (0-5)
[2020-08-10 11:29] LABS: Bacteria Many /hpf; Squamous Epithelial Cells Rare /hpf (Few); Transitional Epithelial Cells Rare /hpf (0-Rare)
[2020-08-10] MEDS ORDERED: MIRT30 PO (12:13)
[2020-08-10] MEDS ORDERED: PANT20 PO (12:14)
[2020-08-10] MEDS ORDERED: Vitamin D2000 UNIT PO (12:14)
[2020-08-10] MEDS ORDERED: Vitamin B Comple1 EA PO (12:14)
[2020-08-10] MEDS ORDERED: ESCI10 PO (12:14)
[2020-08-10] MEDS ORDERED: CARBIDOPA-LEVO1 EA19 SL (12:15)
[2020-08-10] MEDS ORDERED: HYDHCL25 PO (12:15)
[2020-08-10] MEDS ORDERED: ENTA200 PO (12:16)
[2020-08-10] MEDS ORDERED: Aspirin EC81 MG PO (12:16)
[2020-08-10] MEDS ORDERED: MIDO5 PO (12:17)
[2020-08-10] MEDS ORDERED: EPIDIOLEX100 MG/1 M PO (12:17)
--- NOTE | 2020-08-10 19:36 | NUR ---
Admission/[place] of Care: Patient arrived to unit at 1750hr, via stretcher, accompanied by ED nurse. Patient arrived with LR infusing at 150ml/hr, and levophed had bed stopped in the ED. Patient drowsy, but responds to verbal stimuli. Able to answer yes/no, but otherwise only mumbles words. Denies pain or discomfort. Heart rhythm shows NSR in the 80's, systolic BP in the 70's. Dr. Gonzalez to room shortly after arrival. Received instructions to start peripheral Levophed at 5mcg/min, for max dose of 10mcg/min (via peripheral). Patient BP then increased to systolic 110-120, and levophed titrated down 3mcg/min, BP remains stable. Deutsch cath in place (chronic indwelling at baseline, replaced in ED) draining minimal amount of dark yellow urine, Dr. Gonzalez made aware. Colostomy to lt lower ABD, appliance C/D/I, small amount of loose brown stool in drainage bag, stoma pink. Patient's temp (101.0) upon arrival, received order per Dr. Gonzalez for FL tylenol, x1 dose given shortly before shift change. Patient's daughter at beside. Report given to NOC shift ELONARD Cesar.
--- NOTE | 2020-08-10 19:56 | NUR ---
ASSUMED CARE RECEIVED REPORT FROM LEONARD LOZANO. PT IS LYING IN BED ASLEEP ON 4L NC, SAT'ing 95%. HE IS IN SINUS RHYTHM, RATE IN 80s. PT IS ON LEVOPHED AT 3 MCG/MIN, BP 95/52, 65. PT ALSO RECEIVING NS 150 ML/HR. BOTH IV SITES LOOK WNL. PT IS WARM TO TOUCH. HE HAS A PATENT RODRIGUEZ DRAINING CLOUDY, ORANGE URINE. BED IS LOW AND LOCKED. CALL LIGHT IS WITHIN RANGE.
--- NOTE | 2020-08-10 20:30 | NUR ---
NEURO WHEN PT IS AWAKE HE IS VERY TREMULOUS. HE CAN ANSWER SIMPLE QUESTIONS, HE DENIED PAIN, AND SAID HE WAS COLD. HE WILL MUMBLE AT TIMES TOO. BUT OVERALL HE DOESN'T SAY MUCH, INSTEAD HE MAKES SOUNDS LIKE GRUNTS. HE WAS ABLE TO SQUEEZE MY FINGERS UPON COMMAND, AND HE RESPONDED TO HIS NAME. WHEN ASLEEP, HE DOESN'T SHAKE QUITE MUCH. AND APPEARS TO BE CALM.
[2020-08-10] MEDS ORDERED: CYAN500 PO (21:30)
[2020-08-10] MEDS ORDERED: GENTEAL TEARS S10 GM (21:38)
[2020-08-10] MEDS ORDERED: ACET325 PO (21:39)
[2020-08-10] MEDS ORDERED: Ventolin5 MG/1 ML NEB (21:45)
[2020-08-10] MEDS ORDERED: Magic Bullet10 MG PR (21:50)
[2020-08-10] MEDS ORDERED: DULCOLAX400 MG/5 M PO (21:51)
[2020-08-10] MEDS ORDERED: NYSTRIT TOP (21:52)
[2020-08-10] MEDS ORDERED: Pyridium100 MG PO (21:54)
--- NOTE | 2020-08-10 23:49 | NUR ---
UPDATE FOR ABOUT AN HOUR THE PT HAD BEEN TACHYPNEIC RR 30s, WITH SHALLOW RESPIRATIONS, AND VERY TREMULOUS AND ALSO SHIVERING A LOT - SO HIS ENVIRONMENTAL HEALTH AIDE WAS SHOWING LOTS OF ARTIFACT, ALONG WITH NOT SHOWING ACCURATE SPO2 WAVEFORMS. HIS FACE IS SLIGHTLY HAIR, AND WITH ALL THE TREMORS HIS TEMPERATURE HAS INCREASED TO 104. I PLACED TWO ICE PACKS ON HIM AND A FAN BLOWING ON HIM. I ALSO GAVE HIM 0.5 MG ATIVAN IV WHICH HAS HELPED CALM HIM DOWN, HE IS NOW SLEEPING AND BREATHING AT A MORE STABLE RATE. HE IS HOT TO TOUCH, GOOD PULSES, WITH FLUSHED CHEEKS. WILL GIVE MORE TYELNOL AT 0045. WILL CONTINUE TO MONITOR, PT IS NO LONGER EXTREEMLY TREMULOUS AND ISN'T SHIVERING. SON IN LAW AT [facility].
--- NOTE | 2020-08-11 01:32 | NUR ---
UPDATE PT HAS BEEN REQUIRING INCREASED DOSES OF LEVOPHED TO MAINTAIN MAP ABOVE 60, ALTHOUGH PERIPHERAL IV SITE LOOKS WNL, I CALLED DR. SMITH TO PLACE A CENTRAL LINE. RIGHT IJ CVC HAS BEEN PLACED. CONFIRMED BY DR. SMITH. LEVOPHED INCREASED TO 8 MCG/MIN. PT'S TEMPERATURE HAS DECREASED TO 101.5 (FROM A T MAX OF 104.2). HE REMAINS CALM, MINIMALLY TREMULOUS, AND ASLEEP SINCE ABOUT 20 MINUTES AFTER HE WAS GIVEN 0.5 MG OF ATIVAN (LAST NIGHT AT 2315). HE STAYED ASLEEP AND CALM THROUGHOUT THE CVC PROCEDURE.
[2020-08-11 03:36] LABS: Hemoglobin 12.2 g/dL (13.5-17.5); Mean Corpuscular HGB 31.9 pg (26.0-34.0); Mean Corpuscular HGB Conc 33.9 g/dL (31.5-36.5); Mean Corpuscular Volume 94 fL (80-100); Mean Platelet Volume 10.2 fL (9.1-12.4); Platelet Count 117 K/mm3 (150-400); RDW Coefficient Variation 13.1 % (11.7-14.2); Red Blood Cell Count 3.83 M/mm3 (4.30-5.90); White Blood Cell Count 24.76 K/mm3 (4.00-11.30)
[2020-08-11 03:54] LABS: Magnesium, Blood 1.7 mg/dL (1.6-2.4)
[2020-08-11 03:55] LABS: Anion Gap 7 mmol/L (6-16); Blood Urea Nitrogen 25 mg/dL (8-24); Bun/Creatinine Ratio 14.2 (12.0-20.0); CO2, Blood 21 mmol/L (21-32); Chloride, Blood 113 mmol/L (98-108); Creatinine, Blood 1.76 mg/dL (0.60-1.20); Glomerular Filtration Rate 39 (60-); Glucose, Blood 121 mg/dL (70-99); Potassium, Blood 3.5 mmol/L (3.5-5.5); Sodium, Blood 141 mmol/L (136-145); Vancomycin, Random 18.3 ug/mL
[2020-08-11 04:28] LABS: BAND PERCENT MAN 22 % (0-8); BASOPHILS PERCENT MAN 0 % (0-2); EOSINOPHILS PERCENT MAN 0 % (0-6); METAMYELOCYTE ABSOLUTE MAN 0.24 K/mm3 (0.00-0.00); METAMYELOCYTE PERCENT MAN 1 % (0-0); MONOCYTES ABSOLUTE MAN 0.74 K/mm3 (0.16-1.47); MONOCYTES PERCENT MAN 3 % (4-13); NEUTROPHILS ABSOLUTE MAN 23.76 K/mm3 (1.96-9.15); SEG NEUTROPHILS PERCENT MAN 74 % (41-73); TOTAL CELLS COUNTED 100
--- NOTE | 2020-08-11 05:08 | NUR ---
SHIFT SUMMARY PT HAS SLEPT FOR MAJORITY OF NIGHT. HE IS ON 2 L NC, SAT'ing 98%. HE IS IN SINUS RHYTHM WITH A RATE IN THE 80s, ALTHOUGH, LAST NIGHT AT ABOUT 0300 PT WENT INTO A SUSTAINED 1-2 MIN RUN OF VTACH (STABLE). PT REMAINED ASLEEP DURING THIS, HAD STRONG CAROTID PULSE, AND HIS MAP REMAINED ABOVE 65. WHEN ASLEEP PT IS NOT SO SHAKY, HOWEVER, WHEN AWAKE PT IS EXTREEMELY TREMULOUS AND WILL SHIVER HIS TEMPERATURE WAY UP. HIS T MAX LAST NIGHT (AFTER BEING TREMULOUS, SHIVERING, AND BEING VERY UNCOMFORTABLE/ANXIOUS) WAS 104.2. AFTER A SMALL DOSE OF ATIVAN, ICE PACKS, AND THE FAN - THE PT CALMED DOWN, WENT TO SLEEP AND HIS TEMPERATURE RETUREND TO A NORMAL RANGE. THE PT IS OLIGURIC, HE HAS A CHRONIC INDWELLING CATHETER DRAINING CLOUDY ORANGE URINE (475ML T/O NIGHT). MAPs HAVE BEEN MAINTAINED ABOVE 65 VIA LEVOPHED GTTP, CURRENTLY AT 8 MCG/MIN. COLOSTOMY - THE PT'S COLOSTOMY IS IN THE LLQ OF HIS ABDOMIN. THE STOMA IS PINK AND IS DRAINING PROPERLY. LIQUID, LOOSE DARK STOOL IS THE CONTENTS. HOWEVER, THE STOMA WILL INFLATE AND DEFLATE SLIGHTLY AT TIMES, WELL THE PORTION OF BOWELL UNDER IT (IN THE LLQ OF THE ABDOMIN). THERE APPEARS TO BE GAS IN THE COLOSTOMY BAG. THE SON-IN-LAW AT THE BEDSIDE IS UNAWARE IF THIS IS HIS "NORM", BECAUSE EVER SINCE THE PANDEMIC HAS BEEN GOING ON - HE HASN'T BEEN ABLE TO SEE HIS FATHER IN LAW FOR A FEW MONTHS. COLOSTOMY HAS BEEN EMPTIED. SON IN LAW AT BEDSIDE. CALL LIGHT WITHIN REACH. BED LOW AND LOCKED.
--- NOTE | 2020-08-11 06:22 | NUR ---
UPDATE/MED PT HAS HIS MOUTH CLOSED, AND HIS JAW SHUT TIGHT. I AM UNABLE TO GIVE HIM HIS 0600 CARBIDOPA/LEVADOPA SL AT THIS TIME. HE IS CALM, NOT TREMULOUS, AND STABLE - I DO NOT BELIEVE ITS BEST TO WAKE HIM UP SO EARLY. WILL PASS ALONG TO DAY SHIFT RN. SON-IN-LAW AT BEDSIDE.
--- NOTE | 2020-08-11 08:34 | NUR ---
PT IS ABLE TO RESPOND TO WITH ONE WORD ANSWERS BUT IRREGULARLY. PT IS SHAKING VIGERIOUSLY ARMS AND LEGS AND NO FOLLOWING OF TELEVISION AUDIO ENGINEER OR MOVEMENT REQUESTS. PT IS MOAINING, OCC. HAS DRY COUGH, FEET SL COOL AND SCATTERED MOTTLING TO TOES AND KNEES DISPITE ADIQUATE BP CURRENTLY. IVF NOTED. L AC IV REMOVED. L ABDOMINAL COLOSTOMOY STOMA IS PINK AND WITH ABD. WALL PROTRUDING UP IS STOMA ITSELF, BUT INDICATES THAT ALL APPEARS NORMAL. RR IS IN MID 30 RANGE ON 2L NC. THERE IS SMALLL AMOUNT OF MUCUS BROWN STOOL AND GAS BEING RELEASED. BILAT BUTTOCK SKIN IRRITATION IS SL IMPROVED FROM PIC AND IS NOW CLEANED AND COVERED WITH CLOVER FAOM DSG. TEMP IS AGAIN CLIMBING ON NITE WITH PT PROLONGED PARKINSON TYPE SHIVERING AND WILL FOLLOW. TEMP PER RECTAL PROBE.
--- NOTE | 2020-08-11 13:14 | NUR ---
PT IS CURRENTLY ON VASOPRESSIN. BP HAS BEEN LABILE BUT COULD BE RELATED TO THE SHAKIKNG OF PARKINSONS. LEVOPHED GTT DECREASED AND WILL FOLLOWL. PT TEMP DOWN AND NOT SHAKING MUCH CURRENTLY.
--- NOTE | 2020-08-11 16:35 | NUR ---
Initial spiritual care note: I met with Nikko's mathew at bedside. Nikko was peacefully sleeping for the most part. He did begin to tremble and mumble incoherantly once or twice. But this did not appear to have purpose. Tara and I had a lengthy conversation about their 64 year marriage. They have known each other since elementary school. They have 4 successful dtrs and lots of grandbabies. Tara appears to understand that Nikko is nearing the end-stage of his illness. She tells me her shantel brings her peace and that Nikko has been a believer as well. Prayer and gentle youth counselor was well-recieved. It would probably benefit Tara to have long discussion with clinical staff about a plan going forward. Palliative care would be a great idea for pt and family. Regardless, I will remain available.
--- NOTE | 2020-08-11 17:57 | NUR ---
LEVOPHED GTT AT 4MCG, VASOPRESSIN GTT OFF WITH PARAMETERS FOR RESTARTING. PT HAS BEEN SLEEPING WELL THIS AFTERNOON, TEMP DOWN NOTED, HR 70-90 RANGE. LR TO START AT 200 ML TIMES ONE LITER PER ORDER WITH URINE VERY CONCENTRATED AND SMALL SEDIMENT. HAS BEEN IN ROOM ALL DAY AND SEVERAL CALLS WERE MADE WITH DAUGHTERS UPDATING ON FATHERS CONTITION. SOME VENTRICULAR ECTOPY HAS BEEN NOTED ON OCCASION W/O RUNS. SATS STABLE ON 2L NC AWAKE OR ASLEEP.
--- NOTE | 2020-08-11 20:01 | NUR ---
ASSUMED CARE RECEIVED REPORT FROM LEONARD CALDERON. PT IS LYING IN BED EYES CLOSED, MUMBLING INCOHERENTLY AT TIMES, WITH MILD TREMORS. HE IS IN SINUS RHYTHM WITH PACs, RATE IN THE 70-80s. BP STABLE, ON A LEVOPHED GTTP AT 4 MCG/MIN. HIS RIGHT IJ CVC SITE IS WNL. HE HAS LR INFUSING AT 200 ML/HR. VASOPRESSIN ON STANDBY. PT HAS A PATENT RODRIGUEZ, DRAINING CLOUDY, ORANGE URINE. PT IS AFEBRILE AT THE MOMENT. DAUGHTER, DAYANA IS AT BEDSIDE. HE IS ON 2L NC, SATing AT 99%. BED LOW AND LOCKED.
--- NOTE | 2020-08-11 23:30 | NUR ---
[facility] PT ARRIVES TO ICU VIA STRETCHER AT ABOUT 2200. SHE IS AWAKE, ALERT, BUT ONLY ORIENTED TO SELF, FAMILY, AND SURROUNDINGS. HER ATTENDS ARE FULL OF FECES. SHE IS HYPOTENSIVE. SHE HAS A LARGE OPEN WOUND ON HER COCCYX, AND MANY MORE BLISTERS AND WOUNDS ON HER BODY, INCLUDING HER RIGHT EAR, LEFT HEEL, ON HER SIDES, AND OTHER PLACES. ONE OF THE WOUNDS ON HER SIDE APPEARS TO BE A BITE NOE. WE CLEAN HER UP, AND CHANGE THE LINENS. SHE IS TREMULOUS AND SLIGHTLY RIDGID. MOANING AND GROANING, NOT SAYING MANY WORDS. SHE HAS D10 INFUSING AT 75 ML/HR, AND LR AT 100 ML/HR. I CALLED DR. SMITH AND WE GOT LEVOPHED STARTED AT 2 MCG/MIN INITIALLY. BLOOD SUGAR WAS NORMAL. HER BP IS QUITE LABILE, AND MAY HAVE SOMETHING TO DO WITH HER TREMORS - SOMETIMES IT IS VERY LOW, FOLLOWED BY ONE HIGH BLOOD PRESSURE, AND THEN BY ANOTHER LOW ONE. WILL CONTINUE TO MONITOR. LEVOPHED IS NOW UP TO 5 MCG/MIN HER SON, KATHIE, IS AT THE BEDSIDE. HE TELLS ME THAT HER (HIS DAD) HAS STAGE 4 CANCER AND HE IS UNABLE TO TAKE CARE OF HER. KATHIE LIVES IN [place] BUT HAS MOVED BACK RECENTLY TO STAY WITH HIS PARENTS TO HELP THEM. HE TELLS ME THAT SHE HAS BEEN IN THE HOSPITAL A FEW TIMES RECENTLY.
[2020-08-12 04:46] LABS: Hemoglobin 11.2 g/dL (13.5-17.5); Mean Corpuscular HGB 31.5 pg (26.0-34.0); Mean Corpuscular HGB Conc 33.9 g/dL (31.5-36.5); Mean Corpuscular Volume 93 fL (80-100); Mean Platelet Volume 10.9 fL (9.1-12.4); Platelet Count 71 K/mm3 (150-400); RDW Coefficient Variation 13.2 % (11.7-14.2); RDW Standard Deviation 45.3 fL (35.1-46.3); Red Blood Cell Count 3.56 M/mm3 (4.30-5.90); White Blood Cell Count 21.88 K/mm3 (4.00-11.30)
[2020-08-12 05:07] LABS: Anion Gap 7 mmol/L (6-16); Blood Urea Nitrogen 34 mg/dL (8-24); Bun/Creatinine Ratio 19.2 (12.0-20.0); CO2, Blood 21 mmol/L (21-32); Chloride, Blood 114 mmol/L (98-108); Creatinine, Blood 1.77 mg/dL (0.60-1.20); Glomerular Filtration Rate 39 (60-); Glucose, Blood 94 mg/dL (70-99); Phosphorus, Blood 3.4 mg/dL (2.5-4.9); Potassium, Blood 4.6 mmol/L (3.5-5.5); Sodium, Blood 142 mmol/L (136-145); Vancomycin, Random 16.1 ug/mL
[2020-08-12 05:32] LABS: BAND PERCENT MAN 27 % (0-8); BASOPHILS PERCENT MAN 0 % (0-2); EOSINOPHILS PERCENT MAN 0 % (0-6); LYMPHOCYTES ABSOLUTE MAN 0.87 K/mm3 (0.84-5.20); LYMPHOCYTES PERCENT MAN 4 % (21-46); METAMYELOCYTE ABSOLUTE MAN 0.21 K/mm3 (0.00-0.00); METAMYELOCYTE PERCENT MAN 1 % (0-0); MONOCYTES ABSOLUTE MAN 0.65 K/mm3 (0.16-1.47); MONOCYTES PERCENT MAN 3 % (4-13); NEUTROPHILS ABSOLUTE MAN 20.12 K/mm3 (1.96-9.15); SEG NEUTROPHILS PERCENT MAN 65 % (41-73); TOTAL CELLS COUNTED 100
--- NOTE | 2020-08-12 07:40 | NUR ---
SHIFT SUMMARY NO MAJOR EVENTS LAST NIGHT, TEMPERATURE, RR, AND HR STABLE ALL NIGHT. PT WAS OFF LEVOPHED FOR ABOUT 20 MINUTES, BEFORE NEEDING IT TO BE TURNED BACK ON. CURRENTLY LEVOPHED IS INFUSING AT 2 MCG/MIN. PT WAS TREMULOUS AND RIDGID LAST NIGHT, BUT SEEMED TO HAVE LESS TREMORS THAN THE NIGHT BEFORE. PT HAD ABOUT 30 MINS OF BEING LUCID, WITH HIS EYES WIDE OPEN, APPEARED HAPPY, AND WAS RESPONDING WITH WORDS TO SIMPLE QUESTIONS. HE WAS FOLLOWING DIRECTIONS TO THE BEST OF HIS ABILITY. THIS WAS PROCEEDED BY (FOR THE MAJORITY OF THE NIGHT) HIS INCOHRENT MUMBLING, WITH HIS EYES CLOSED, AND HAVING INTERMITTENT SEVERE TREMORS (ALTHOUGH NONE OCCURRED VIOLENTLY HE HAD IN THE PAST, WHEN HIS TEMPERATURE WOULD INCREASE TO 104.0 +). PT IS OLIGURIC ONLY HAVING 150 ML OF URINE OUTPUT (ORANGE, CLOUDY). PT HAD MINIMAL OUTPUT FROM HIS COLOSTOMY, PASSING FLATULENCE. BED LOW AND LOCKED. DAUGHTER, DAYANA AT BEDSIDE ALL NIGHT. REALLY SEEMED TO HELP WITH AGITATION/ANXIETY AND EVEN TREMORS TO AN EXTENT. NO PRECEDEX OR VASOPRESSIN NEEDED OVERNIGHT.
--- NOTE | 2020-08-12 11:35 | NUR ---
LATE AM ENTRY... PT HAS BEEN CALM AND RESTING WELL, EVEN BEING SOMEWHAT DIFFICULT TO AROUSE. PT IS CURRENTLY NONVERBAL WITH ONLY A RARE MOAN NOTED WITH REPOSTIONING. LEVOPHED GTT WAS 2 MCG AT START OF SHIFT AND LATER DEC TO 1MCG BUT BP SEEMS TO DROP EVEN WITH THIS CHANGE, WILL FOLLOW. VASOPRESSING WILL BE D/C AND HAS ONLY BEEN ON STANDBY. PT TEMP IS DOWN NOTED. O2 WAS REMOVED AND SAT GOOD. SMALL AMOUNT OF BROWN MUCUS STOOL PER COLOSTOMY. RODRIGUEZ IS PATENT OF ORANGE URINE. BOTTOCK IS CLEANED AND CLOVER FOAM PLACE ON BILATERAL DRYING RED AREAS.
--- NOTE | 2020-08-12 16:49 | NUR ---
PRECEDEX GTT HAS JUST BEEN STARTED, SEE EMAR. PT HAS BEEN INCREASINGLY AGITATED, RR INC., HR INC., AND INC. TREMORS OF ARMS AND SHAKING. TEMP IS RISING AND PT WAS JUST NOW STARTED ON PRECEDEX GTT. FAMILY INDICATES THAT USUALLY PT CAN BE CALMED BY REASSURANCE BUT THIS HAS NOT BEEN THE CASE FOR THE LAST 45-60 MINUTES. WILL FOLLOW PROGRESS AND MONITOR PRECEDEX GTT EFFECT.
--- NOTE | 2020-08-12 17:51 | NUR ---
COOLING MEASURES HAVE BEEN STARTED WITH TYLENOL AND ICE BAGS TO SLOW TEMP. HOWEVER, PT BEGINS TO HAVE INC TEMP WHEN SHAKING OF PARKINSONS SYMPTOMS BEGIN. PRECEDEX GTT HAS SLOW AND PT IS CALM WITH EYES OPEN. LEVOPHED GTT CONT AT 2MCG AND PRECEDEX GTT AT 0.2MCG/KG, AND NS TKO. U.O. IS NOTED AND REPORTED TO DR MCQUEEN WAS THE FACT THAT THE WAS CLEANED SOME STOOL THAT WAS DRAINING FROM ANUS. PT HAS NOT BEEN ALERT ENOUGH TO OFFER PO MEDS AT THIS TIME.
--- NOTE | 2020-08-12 18:41 | NUR ---
Spiritual care note: Provided supportive visit to ANDREA at bedside. Complimented family on their love and devotion to pt. Prayer provided. I will remain available.
--- NOTE | 2020-08-12 19:00 | NUR ---
ASSUMED CARE ASSUMED CARE OF PATIENT. PT IS SEDATED WITH PRECEDEX AT 0.2MCG/KG/HR. OCCASIONAL TWITCHING NOTED- INCREASED WITH STIMULATION. ATTEMPTS TO OPEN EYES TO STIMULATION. INFREQUENT MOANS NOTED. NO OTHER VERBAL RESPONSE. MOVES ALL EXTREMITIES SPONTANEOUSLY. MONITOR SHOWS NSR WITH PACs, RATE 70-80s. BP STABLE WITH LEVOPHED @ 3MCG/MIN. TEMP 101.5 VIA RECTAL PROBE. NPO D/T SEDATION. RODRIGUEZ PATENT AND DRAINING TO GRAVITY. FAMILY AT BEDSIDE. SEE SHIFT ASSESSMENT FOR FULL ASSESSMENT.
[2020-08-13 05:22] LABS: Hematocrit 34.6 % (37.0-53.0); Hemoglobin 11.5 g/dL (13.5-17.5); Mean Corpuscular HGB 30.8 pg (26.0-34.0); Mean Corpuscular HGB Conc 33.2 g/dL (31.5-36.5); Mean Corpuscular Volume 93 fL (80-100); Mean Platelet Volume 11.5 fL (9.1-12.4); Platelet Count 63 K/mm3 (150-400); RDW Coefficient Variation 13.3 % (11.7-14.2); RDW Standard Deviation 45.4 fL (35.1-46.3); Red Blood Cell Count 3.73 M/mm3 (4.30-5.90); White Blood Cell Count 20.41 K/mm3 (4.00-11.30)
[2020-08-13 05:32] LABS: Anion Gap 7 mmol/L (6-16); Blood Urea Nitrogen 47 mg/dL (8-24); Bun/Creatinine Ratio 25.3 (12.0-20.0); CO2, Blood 20 mmol/L (21-32); Calcium, Blood 8.5 mg/dL (8.5-10.1); Chloride, Blood 116 mmol/L (98-108); Creatinine, Blood 1.86 mg/dL (0.60-1.20); Glomerular Filtration Rate 37 (60-); Glucose, Blood 104 mg/dL (70-99); Phosphorus, Blood 3.2 mg/dL (2.5-4.9); Potassium, Blood 4.5 mmol/L (3.5-5.5); Sodium, Blood 143 mmol/L (136-145); Vancomycin, Random 17.2 ug/mL
[2020-08-13 06:02] LABS: BAND PERCENT MAN 14 % (0-8); BASOPHILS PERCENT MAN 0 % (0-2); EOSINOPHILS PERCENT MAN 0 % (0-6); LYMPHOCYTES PERCENT MAN 1 % (21-46); MONOCYTES PERCENT MAN 2 % (4-13); NEUTROPHILS ABSOLUTE MAN 19.79 K/mm3 (1.96-9.15); SEG NEUTROPHILS PERCENT MAN 83 % (41-73); TOTAL CELLS COUNTED 100
--- NOTE | 2020-08-13 06:52 | NUR ---
SHIFT SUMMARY NO ACUTE CHANGES. PRECEDEX HAS BEEN OFF SINCE 0200. OCCASIONAL TREMORS NOTED. MOVING ALL EXTREMITIES. OPENS MOUTH WHEN ASKED. ATTEMPTS TO OPEN EYES TO STIMULATION. NOT FOLLOWING OTHER COMMANDS. LEVOPHED INFUSED BETWEEN 1-3MCG/MIN DURING SHIFT. NOW INFUSING AT 1MCG/MIN. HR 50-80s. TMAX 100.5F AT BEGINNING OF SHIFT- NOW AFEBRILE. REMAINS ON 2LNC- SATS STABLE. RESPIRATIONS EVEN AND UNLABORED. NPO T/O NOC. COLOSTOMY INTACT TO LLQ. RODRIGUEZ PATENT AND DRAINING TO GRAVITY. REPORT TO ONCOMING RN WHEN AVAILABLE.
--- NOTE | 2020-08-13 07:30 | NUR ---
ASSUMED CARE BEDSIDE REPORT RECIEVED. PT IS RESTING QUIETLY UPON ENTERING ROOM. PT IS DIFFICULT TO AROUSE. PT MOANS TO NOXIOUS STIMULI, BUT DOES NOT FOLLOW ANY DIRECTIONS OR WAKE FULLY. PT WITH TREMOR NOTED TO ALL EXTREMITIES WITH ANY MOVEMENT. VITAL SIGNS STABLE, PT ON ROOM AIR. LEVOPHED TITRATED TO OFF AT THIS TIME. CENTRAL LINE TO RIJ C/D/I. NS INFUSING TKO. COLOSTOMY NOTED TO LLQ, STOMA IS PINK WITH DARK BROWN MINIMAL OUTPUT NOTED. RODRIGUEZ TEMP PROBE IN PLACE WITH YELLOW URINE OUTPUT NOTED. WILL CONTINUE TO MONITOR.
--- NOTE | 2020-08-13 10:06 | NUR ---
FAMILY UPDATE PT DAUGHTER DAYANA AT BEDSIDE. UPDATED TO PLAN OF CARE AND HOW PT DID THROUGHOUT THE NIGHT. DR MCQUEEN TO SPEAK WITH DAYANA ABOUT GOALS OF CARE.
--- NOTE | 2020-08-13 17:59 | NUR ---
SHIFT SUMMARY PT DID WELL TODAY. PT SLOW TO WAKE THIS MORNING, BUT PT BECAME MUCH MORE ALERT AROUND 1000. PT MOANS, BUT DOES NOT SPEAK MEANINGFUL SENTENCES. PT DOES NOT FOLLOW DIRECTIONS. VITAL SIGNS STABLE. BP REMAINS LABILE, BUT PT HAS REMAINED OFF LEVOPHED SINCE THIS AM. PT ON ROOM AIR. PT ABLE TO TOLERATE PO DIET FOR LUNCH AND SNACKS THIS AFTERNOON. PT BECAME MORE RESTLESS AND TREMULOUS THIS EVENING. PRECEDEX RESTARTED AT 0.2 MCG/KG/MIN. NS INFUSING TKO. CENTRAL LINE TO RIJ C/D/I. COLOSTOMY UNCHANGED, MINIMAL OUTPUT NOTED. RODRIGUEZ REMAINS IN PLACE WITH SMALL AMOUNT OF CLOUDY YELLOW OUTPUT NOTED. PT DAUGHTER DAYANA AT BEDSIDE THROUGHOUT THE SHIFT. WILL CONTINUE TO MONITOR AND REPORT OFF TO ONCOMING RN.
--- NOTE | 2020-08-13 20:15 | NUR ---
ASSUMED CARE AT 1900 PT IN BED SITTING UP AND SOFTLY MUMBLING BUT CALM. PRECEDEX INFUSING AT 0.2MCG/KG/HR THROUGH RIGHT IJ. LEVOPHED ON SB. RODRIGUEZ IN PLACE AND DRAINING TO GRAVITY. SEE SHIFT ASSESSMENT FOR FULL ASSESSMENT.
[2020-08-14 04:03] LABS: Hematocrit 34.1 % (37.0-53.0); Hemoglobin 11.6 g/dL (13.5-17.5); Mean Corpuscular HGB 31.3 pg (26.0-34.0); Mean Corpuscular Volume 92 fL (80-100); Mean Platelet Volume 11.9 fL (9.1-12.4); Platelet Count 63 K/mm3 (150-400); RDW Coefficient Variation 13.3 % (11.7-14.2); RDW Standard Deviation 45.1 fL (35.1-46.3); Red Blood Cell Count 3.71 M/mm3 (4.30-5.90); White Blood Cell Count 15.53 K/mm3 (4.00-11.30)
[2020-08-14 04:18] LABS: Calcium, Blood 8.7 mg/dL (8.5-10.1); Creatinine, Blood 1.5 mg/dL (0.60-1.20); Potassium, Blood 3.9 mmol/L (3.5-5.5)
[2020-08-14 04:38] LABS: BAND PERCENT MAN 8 % (0-8); BASOPHILS PERCENT MAN 0 % (0-2); EOSINOPHILS PERCENT MAN 0 % (0-6); LYMPHOCYTES ABSOLUTE MAN 0.46 K/mm3 (0.84-5.20); LYMPHOCYTES PERCENT MAN 3 % (21-46); MONOCYTES ABSOLUTE MAN 0.93 K/mm3 (0.16-1.47); MONOCYTES PERCENT MAN 6 % (4-13); NEUTROPHILS ABSOLUTE MAN 14.13 K/mm3 (1.96-9.15); SEG NEUTROPHILS PERCENT MAN 83 % (41-73); TOTAL CELLS COUNTED 100
--- NOTE | 2020-08-14 06:29 | NUR ---
END OF SHIFT SUMMARY PT SLEPT FOR MOST OF THE NIGHT. PRECEDEX ON SB OF 0000. LEVOPHED INFUSING AT 1MCG/MIN OF 0400. SBP 80-128. HR 45-65. 1L NC O2 SAT >90%. OSTOMY PATENT AND DRAINING. RODRIGUEZ PATENT AND DRAINING TO GRAVITY. WILL REPORT TO AM RN WHEN AVAILABLE.
--- NOTE | 2020-08-14 07:45 | NUR ---
ASSUMED CARE REPORT RECIEVED. PT IS LAYING IN BED AWAKE AND ALERT. PT DOES NOT FOLLOW DIRECTIONS OR ANSWER QUESTIONS. PT DOES MOAN/MUMBLE SOME WORDS AT TIMES. TREMORS NOTED IN EXTREMITIES WITH MOVEMENT. VITAL SIGNS STABLE. O2 TITRATED OFF AT THIS TIME. CENTRAL LINE IN PLACE TO RIJ. LEVOPHED TITRATED TO OFF. NS INFUSING TKO. PT WITH RODRIGUEZ IN PLACE WITH CLOUDY YELLOW OUTPUT NOTED. COLOSTOMY TO LLQ PINK/MOIST WITH APPLIANCE INTACT. MINIMAL DARK BROWN OUTPUT NOTED. NO FAMILY AT BEDSIDE AT THIS TIME. WILL CONTINUE TO MONITOR.
--- NOTE | 2020-08-14 11:38 | NUR ---
PALLIATIVE CARE VISIT JULIO STYLES, FROM PALLIATIVE CARE NOTIFIED THAT PT FAILED SWALLOW EVAL. JULIO DISCUSSED WITH PT DAUGHTER CAMELIA WHAT THE OPTIONS ARE FROM THIS POINT. CAMELIA TO HAVE FAMILY DISCUSSION WITH OTHER FAMILY MEMBERS OVER THE NEXT DAYS TO DECIDE HOW THEY WOULD LIKE TO PROCEED WITH CARE. NO CHANGES TO PLAN OF CARE MADE AT THIS TIME. CAMELIA REMAINS AT BEDSIDE. WILL CONTINUE TO MONITOR.
--- NOTE | 2020-08-14 11:39 | NUR ---
Spoke with ST Joseph prior to Pt visit and discussed case. Pt failed swallow evaluation today and will be placed as NPO. Discussed concerns regarding family dynamics. Nikko from PT and Bedside salon supervisor Pt from bed to recliner chair at beginning of visit. No signs of distress at this time. Pt's daughter Medina at bedside. Medina requests conversation outside of Pt's room. Escorted Medina to ED Palliative Care office. Engaged in therapeutic listening as Medina expresses concerns regarding family dynamics. Medina reports at some point in the past Pt had his real estate associate attorney create documentation appointing Medina as MPOA but Pt's spouse has documentation tucked away. Medina reports the majority of her sibblings are wanting Pt to be placed on comfort care. Medina reports Pt would not want to live in his current condition and would not want his life proloned by feeding tubes. Medina is requesting for staff to wait on contacting spouse today and is currently at urgent care. Medina plans to talk with family this evening and her sister Marlene will be in to visit Pt tomorrow. Discussed the importance of family being in agreement with each other. If necassary decision making will fall to [place] statutes. Medina expresses appreciation of visit and reports no other concerns. Spoke with Bedside RN Valentin and discussed case. Spoke with Dr Sepulveda and discussed case. Palliative Care will remain available for supportive and therapeutic visits.
--- NOTE | 2020-08-14 15:27 | NUR ---
FAMILY UPDATE PT DAUGHTER DAYANA CALLED FOR UPDATE ON PT. DAYANA EXPRESSED HER CONCERNS ABOUT PT'S FAILED SWALLOW EVAL AND OTHER FAMILY MEMBERS VISITING THE PT. WITH EXTENSIVE CONVERSATION VIA PHONE, I REASSURED TO DAYANA THAT NO CHANGE IN THE PLAN OF CARE FOR THE PT HAS BEEN MADE. JULIO STYLES, PALLIATIVE CARE RN INFORMED OF EXTENSIVE PHONE CONVERSATION WITH DAYANA AND HER EXPRESSED CONCERNS ABOUT FAMILY DYNAMICS AND PLAN OF CARE FOR THE PT. IF ESCALATION BETWEEN FAMILY DYNAMIC ISSUES CONTINUE, JULIO WILL PUT IN ETHICS CONSULTATION. PT DAUGHTER CAMELIA REMAINS AT BEDSIDE AT THIS TIME. PT IS RESTING CALMLY. WILL CONTINUE TO MONITOR.
--- NOTE | 2020-08-14 15:44 | NUR ---
Received message stating daughter Medina would like Palliative Care to call spouse and update on swallow evaluation. Pt resting in recliner chair upon arrival. Confirmed with Medina of wishing to call spouse. Called and spoke with Nikko's (Pt) spouse Tara. Provided update on swallow evaluation and conversation with ST [facility]. Discussed Pt's daughter Medina's statement that Nikko (Pt) appointed Medina as healthcare decision maker. Tara confirms that Nikko appointed Medina as healthcare decision maker in Pt's will. Requested Tara to bring in copy with Tara reporting inability to produce copy. Tara states she does not want Medina to be decision maker. Tara reports plan to think about what is in Pt's best interest and will make a decision. Tara expresses appreciation of call. Called and spoke with Nickolas Funes from Ethics. Discussed case and relayed potential conflict. Nickolas reports since spouse confirms Medina was appointed healthcare decision maker but no documentation is provided then majority of family will make decision. If Medina can produce documentation then Medina will be soul decision maker. Relayed information to Medina and she expresses appreciation. Medina reports plan to visit [facility] clerks office tomorrow and attempt to obtain copy of documentation. Medina reports Nikko's (Pt) other daughter Marlene will be visiting with Pt tomorrow. Medina reports her other sibblings and herself feel Pt would want comfort measures only, with the exception of daughter Kaleigh who does not agree. Medina reports there are 4 children: Medina, Kaleigh, Marlene, and Wilda. Spoke with Bedside RN Valentin who just finished speaking with Pt's daughter Kaleigh by phone. Valentin reports Kaleigh is expressing significant concerns. Palliative Care will remain available. Due to family dynamics an Ethics Consult may need to be placed.
--- NOTE | 2020-08-14 17:43 | NUR ---
Telephone report received from LEONARD Hanson. Anticipate arrival of pt from ICU to PCU 16 shortly.
--- NOTE | 2020-08-14 18:00 | NUR ---
TRANSFER TO PCU REPORT CALLED TO LEONARD CELESTE. ALL QUESTIONS ANSWERED. PT TAKEN TO PCU 16 VIA BED. ALL PT MEDS AND BELONGINGS TAKEN WITH PT. PT DAUGHTER CAMELIA AT BEDSIDE AND WENT TO PCU WITH PT.
--- NOTE | 2020-08-14 18:04 | NUR ---
Pt arrived to PCU via bed from ICU. Daughter Medina accompanied the pt to the room. Call to Kaleigh to let her know that the pt has been transferred to PCU. Kaleigh said that the pt's , Tara will be coming in to stay with her for the night. Kaleigh states that Tara would like to speak with the hospitalist about the decision to keep the pt NPO. States that Tara is distraught because she does not feel like the patient is ready to stop with oral nutrition. States that she does not want this information discussed with her sister Medina who is here with the patient. Per Kaleigh there is significant discord and disagreement between herself and her other sisters.
--- NOTE | 2020-08-14 18:53 | NUR ---
Pt's Tara just arrived at the bedside. Daughter Medina is here, states that she is leaving. Tara states that the pt likes thickened cranberry juice and thickened water. Expresses concern that the pt is not getting anything by mouth. States that he can eat and drink, as long as it is thickened and it goes slowly. Medina explained that the pt choked today on his swallow evaluation, but Tara states that "Well, I don't go along with what that speech therapist says."
--- NOTE | 2020-08-14 19:22 | NUR ---
Bedside report given to Antoinette and Sophie,RNs for the noc shift. Tara, of pt is at the bedside. She expressed concern that the pt is not getting anything to eat or drink. Explained that the pt did not show safety in swallowing today. Pt appears calm, non-agitated, non-anxious. Soft indiscernable words at times to questions. Pt smiles when spoken to.
[2020-08-15 04:05] LABS: Hematocrit 36.1 % (37.0-53.0); Hemoglobin 11.9 g/dL (13.5-17.5); Mean Corpuscular HGB 30.7 pg (26.0-34.0); Mean Corpuscular Volume 93 fL (80-100); Mean Platelet Volume 11.7 fL (9.1-12.4); Platelet Count 73 K/mm3 (150-400); RDW Coefficient Variation 13.5 % (11.7-14.2); RDW Standard Deviation 46.5 fL (35.1-46.3); Red Blood Cell Count 3.87 M/mm3 (4.30-5.90); White Blood Cell Count 10.12 K/mm3 (4.00-11.30)
[2020-08-15 04:19] LABS: Calcium, Blood 8.9 mg/dL (8.5-10.1); Creatinine, Blood 1.28 mg/dL (0.60-1.20); Potassium, Blood 3.6 mmol/L (3.5-5.5)
[2020-08-15 04:25] LABS: BAND PERCENT MAN 6 % (0-8); BASOPHILS PERCENT MAN 0 % (0-2); EOSINOPHILS PERCENT MAN 0 % (0-6); LYMPHOCYTES PERCENT MAN 7 % (21-46); MONOCYTES ABSOLUTE MAN 1.21 K/mm3 (0.16-1.47); MONOCYTES PERCENT MAN 12 % (4-13); NEUTROPHILS ABSOLUTE MAN 8.19 K/mm3 (1.96-9.15); SEG NEUTROPHILS PERCENT MAN 75 % (41-73); TOTAL CELLS COUNTED 100
--- NOTE | 2020-08-15 07:51 | NUR ---
SHIFT SUMMARY NO ACUTE CHANGES THIS SHIFT. PT ALERT, DID NOT SLEEP MUCH DURING THE NIGHT. VSS. SP02>92% ON RA. TELEMETRY READS SB, 50'S. Q2H TURNS. ORAL CARE/SUCTION PERFORMED. PT WAS ABLE TO EAT HIS MEDICATION CRUSHED IN APPLESAUCE. IJ LINE ACCESSED FOR LAB DRAW. LINES FLUSHED W/ 20ML NS AND CAPS CHANGED. OSTOMY BAG EMPTIED, C/D/I. RODRIGUEZ CATHETER DRAINING TO GRAVITY. WILL CONTINUE TO MONITOR UNTIL END OF SHIFT.
--- NOTE | 2020-08-15 09:39 | NUR ---
0900 Pt's daughter Deandra and pt's Tara are in the room with the pt. Pleasantly conversant. Tara asking when the doctor will be in this morning. She does not remember giving me her phone number yesterday evening when we wrote it on the white board together. She does not remember my explaining yesterday around 7 pm that she could see the doctor this morning or that I could have the doctor call her if she was unable to wait here in the hospital until the doctor rounds. Her Daughter Deandra reassured her mom that they would be able to make sure the doctor called her if she went home. Daughter Deandra tells me, "I am just here for comfort, and I don't have an opinion." Tara's primary concern she expresses is why the pt can't have anything to eat or to drink. The pt is awake, does not follow commands or have any intelligible/comprehensible conversation. Inaudible whispers, and pleasant, calm expression on his face. Cooperative with oral care and opens his mouth readily. He does not appear to be in any distress or discomfort at the time of my assessment and interventions.
--- NOTE | 2020-08-15 11:04 | NUR ---
Dr. Quesadaten here to talk with pt's Tara and pt's daughter Deandra.
--- NOTE | 2020-08-15 11:31 | NUR ---
Speech therapist Niki Richmond here, also Soni Betts and Ana Rosa. Dr. Shafer talked on the phone with daughter Kaleigh who called on Tara's phone at this time. Dr. Shafer said that Kaleigh indicated that the pt responded well to CBD oils sublinggually. Nickolas Ledezma with palliative care here now aw well. Speech therapist states pt's swallow so delayed that he is aspirating the applesauce before he swallows; also pt is have great difficulty following directions, such as verbal cues to swallow or not bite on the spoon.
--- NOTE | 2020-08-15 12:49 | NUR ---
Spoke with ST Joseph and discussed case. Opal reports Pt is still not able to swallow safely. Arrived to Pt's room. Pt resting in bed upon arrival and is non verbal. Pt's spouse Tara and daughter Lillie Joseph at bedside. Dr Shafer discussing options and plan. This RN remained behind and answered questions and discussed concerns with family. Lillie Joseph and Tara report Pt would not want a feeding tube and would want to focus on comfort. Lillie Joseph calls Pt's other daughter Kaleigh and places her on speaker phone. Answered questions and listened to concerns. Kaleigh appears to be attempting to influence spouse Tara's decision. Continued therapeutic listening. Met with Lillie Joseph outside of Pt's room and answered further questions. Called and spoke with [facility] per family's request to determine visitor policy for residence on hospice. [facility] from [facility] reports no visitors allowed unless Pt is transitioning. Family has already left room. Spoke with Bedside LEONARD Wilkinson, plan is for Pt to D/C back to [facility] today with home health. Family can then decide if Pt should transition to hospice. Palliative Care will remain available.
--- NOTE | 2020-08-15 14:06 | NUR ---
Per Nickolas Ledezma, the pt will not be re-evaluated by [facility] until Tuesday, so the pt will be staying over the weekend.
--- NOTE | 2020-08-15 15:54 | NUR ---
Discharge plan: [facility] unable to re-evaluate pt for transfer back until Tuesday, so pt will be here for the weekend. Daughter Deandra notified of this. Stewherlinda states she is aware of their policy at [facility] of no visitors unless pt is actively dying. The pt has remained awake, tolerating sublingual medications, and showing no signs of agitation or discomfort. Daughter is staying at the bedside, states that the pt's Tara will be staying the night again with the patient.
--- NOTE | 2020-08-15 18:40 | NUR ---
summary Alert, minimal to no verbal response. Very minimal motor response, and not corresponding with verbal cues. Does track people with his eyes, and noted this evening some furrowing of his brow which resolved with repositioning. He has two or three times spontaneously given a slight smile in response to conversation from myself or from his daughter Jaswant. Respirations even and unlabored, no hypoxia noted on room air. Strictly NPO due to inability to safegaurd his airway and delayed swallow. He is receiving sublingual Parkinson's medications and IV antibiotics. Central line in place on the right neck, site WNL. Small amount of clear yellow urine draining in the beyer and scant amount of dark brown unformed soft stool in colostomy bag left lower abdomen. Pt was repositioned regularly, no skin breakdown noted. Heels and elbows protected from pressure with pillows and floating off of the mattress. Daughter Jaswant was at the bedside throughout the day, and she states that her mother Tara will be spending the night again tonight, and sister Kaleigh will be here tomorrow.
--- NOTE | 2020-08-15 20:27 | NUR ---
ASSUMED PATIENT CARE AT THIS TIME. RECIEVED REPORT FROM NURSE MICHELLE AND HARRIETT. PATIENT HAS IN THE ROOM WITH HIM. PATIENT IS LAYING IN BED AT THIS TIME. CALL LIGHT IS WITHIN REACH.
--- NOTE | 2020-08-15 20:33 | NUR ---
PT HANDOFF REPORT GIVEN TO LEONARD SALINAS AND LEONARD VILLARREAL TO ASSUME PT CARE.
--- NOTE | 2020-08-15 22:23 | NUR ---
ASSUMED CARE RECIEVED REPORT FROM LEONARD SALINAS AND LEONARD VILLARREAL.
--- NOTE | 2020-08-16 06:13 | NUR ---
SHIFT SUMMARY PT SLEPT T/O SHIFT. PT TURNED Q 2 HRS AND ORAL CARE PROVIDED Q 4 HRS. PT CAN TRACK WITH HIS EYES. PT NONVERBAL, UNABLE TO ASSESS ORIENTATION. PT APPEARS TO BE CONTENT AND WITHOUT PAIN. OXYGEN SATURATION REMAINS ABOVE 92% ON RA. HR STABLE. BP STABLE. RODRIGUEZ PATENT AND DRAINING. WILL CONTINUE TO MONITOR UNTIL REPORT GIVEN TO ERIC VALLE.
--- NOTE | 2020-08-16 15:55 | NUR ---
PT TRANSFERED AT 1535 TO ROOM 327. NO DISTRESS NOTED. PT IS AOX1, LOOKING WHEN HIS NAME IS SAID OR WHEN BEING SPOKEN TO. PT NEEDS REPOSITIONED EVERY COUPLE HOURS. COLONOSCOPY BAG DID NOT NEED ANY CHANGING OR BURPING TODAY. PT APPEARED COMFORTABLE NO DISTRESS NOTED. DAUGHTER AT BEDSIDE HELPING WITH ANY CARE SHE COULD HELP WITH. REPORT GIVEN TO FRANCOIS VALLE PRIOR TO TRANSFER.
--- NOTE | 2020-08-16 17:13 | NUR ---
SHIFT SUMMARY. 1528 PT TRANSFERED FROM PCU TO MEDICAL FLOOR VIA BED ACCOMPANIED BY DAUGHTER FRANK. RODRIGUEZ PATENT AND DRAINING, COLOSTOMY INTACT. PT WITH NO S/SX OF DISTRESS OR DISCOMFORT. FRANK ASSISTING WITH CARE. NO NEW CHANGES OR CONCERNS.
--- NOTE | 2020-08-17 06:50 | NUR ---
TEST FIXTURE ASSEMBLER SUMMARY PT SLEPT WELL TONIGHT. PT'S HAS BEEN AT BEDSIDE. PRN SUCTION PROVIDED. REPOSITIONED THROUGHOUT THE NIGHT. NPO STATUS. RODRIGUEZ PATENT AND DRAINING YELLOW URINE. MOSTLY NON-VERBAL WITH ONLY A WHISPHER OF ONE WORD HERE AND THERE. NO ACUTE CHANGES. WILL GIVE REPORT TO ONCOMING RN.
--- NOTE | 2020-08-17 10:36 | NUR ---
1010 PT TRANSFERED FROM PCU TO MEDICAL FLOOR. PT REPORTS MIDSTERNAL PAIN THAT IS A PRESSURE TYPE PAIN THAT IS CONSTANT. PT REPORTS THAT HE HAS NOTICED AN INCREASE IN SEVERITY IN PAIN WITH ANY ACTIVITY AND THE PAIN HAS RADIATED TO L ARM AND L JAW LINE PRIOR TO ADMISSION. PT DENIES THE NEED FOR ANY PAIN MEDICATION AT THIS TIME.
--- NOTE | 2020-08-17 17:28 | NUR ---
SHIFT SUMMARY. PT WITH NO S/SX OF DISTRESS OR DISCOMFORT DURING THIS SHIFT. BREATHING EQUAL AND NONLABORED. ORAL CARE PERFORMED THIS AM PRIOR TO DAUGHTER FRANK ARRIVING, AFTERWARD DAUGHTER PROVIDED ORAL CARE. FAMILY AT BEDSIDE CONSISTENTLY DURING SHIFT, AND DAUGHTER AGREE WITH PLAN OF CARE. PLAN IS TO D/C HOME TO FRANK'S HOUSE WITH HOSPICE TOMORROW. NO NEW CHANGES OR CONCERNS.
--- NOTE | 2020-08-17 19:42 | NUR ---
1929 PT'S DAUGHTER AMRITA WANTED AN UPDATE ON THE PT, AFTER PERMISSION WAS GIVEN TO GIVE THE DAUGHTER PT INFORMATION BY PT AND HIS SHE WAS CONTACTED AND INFORMED ON THE PT'S CONDITION AND DISCHARGE PLAN.
--- NOTE | 2020-08-18 03:58 | NUR ---
REFUSE LABORER SUMMARY PT WAS GIVEN A BED BATH AT THE START OF THE SHIFT PER [facility]. PT HAS HAD AN UNEVENTFUL NIGHT WITH NO SIGNS OF PAIN OR DISTRESS. PT SLEPT COMFORTABLY FOR MOST OF THE NIGHT W AT THE BEDSIDE.
[2020-08-18] MEDS ORDERED: Ativan1 MG PO (12:12)
[2020-08-18] MEDS ORDERED: MORP20L PO (12:13)
--- NOTE | 2020-08-18 12:47 | NUR ---
DISCHARGE INSTRUCTIONS VERBALIZED TO PATIENTS . PATIENT TO DISCHARGE HOME WITH HOSPICE CARE. ALL QUESTIONS ANSWERED. IJ LINE TO BE REMOVED BY SUMIT QUIROZ RN.
--- NOTE | 2020-08-18 16:00 | NUR ---
PATIENT LEAVING VIA STRETCHER @ 1600. GOING HOME WITH HOSPICE.
== END 2020-08-18 16:15 | disposition hospice, home (50) | DRG 698 ==
LOC: ER 08:31 → PCU 12:25 → ICUW 12:25 → PCU 08-14 17:44 → MEDS 08-16 15:31 → ENPENDDIS 08-18 11:05 → MEDS 08-18 16:15
PROVIDERS: Emergency Medicine; Internal Medicine Critical Care Medicine; Internal Medicine Pulmonary Disease; Nurse Practitioner Acute Care; ADMIT Internal Medicine
PROC: 3E043XZ Introduction of Vasopressor into Central Vein, Percutaneous Approach (ICD-10-PCS; 2020-08-10)
PROC: 02HV33Z Insertion of Infusion Device into Superior Vena Cava, Percutaneous Approach (ICD-10-PCS; principal; 2020-08-11)
DX: T83.511A Infection and inflammatory reaction due to indwelling urethral catheter, initial encounter (principal); A41.9 Sepsis, unspecified organism; R65.21 Severe sepsis with septic shock; J69.0 Pneumonitis due to inhalation of food and vomit; E87.2 Acidosis; N17.9 Acute kidney failure, unspecified; N39.0 Urinary tract infection, site not specified; I95.9 Hypotension, unspecified; G20 Parkinson's disease; G47.33 Obstructive sleep apnea (adult) (pediatric); K21.9 Gastro-esophageal reflux disease without esophagitis; E83.39 Other disorders of phosphorus metabolism; R40.2431 Glasgow coma scale score 3-8, in the field [EMT or ambulance]; B96.89 Other specified bacterial agents as the cause of diseases classified elsewhere; Z51.5 Encounter for palliative care; Z93.3 Colostomy status; N40.0 Benign prostatic hyperplasia without lower urinary tract symptoms; F02.80 Dementia in other diseases classified elsewhere, unspecified severity, without behavioral disturbance, psychotic disturbance, mood disturbance, and anxiety; D69.6 Thrombocytopenia, unspecified; F41.9 Anxiety disorder, unspecified; F32.9 Major depressive disorder, single episode, unspecified; Z87.440 Personal history of urinary (tract) infections; Z79.82 Long term (current) use of aspirin
CPT/HCPCS: 36415; 36556; 51702; 71045; 80048; 80053; 80069; 80202; 81001; 83605; 83735; 83880; 84100; 85025; 87040; 87077; 87086; 87186; 92526; 92610; 93005; 93010; 96361; 96365; 96375; 97110; 97162; 99285-25; A9270; C1751; C9113; J0692; J0696; J1650; J1956; J2060; J2270; J2543; J3370; J7030; J7050; J7060; J7120; Q2038